=== PATIENT | female | born 2000 | race Caucasian/White ===

== ENCOUNTER 2020-09-06 12:48 | Emergency (ER) | payer MEDICAID, SELFPAY ==
[2020-09-06 13:09] VITALS: BP 125/80; PULSE 99; RESP 18; TEMP 36.7; O2SAT 97
--- NOTE | 2020-09-06 13:55 | ED.URI ---
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 Patient states that she has been taking some allergy medication but her symptoms haven't resolved. 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 MD elicited complaint: cough, sore throat, rhinorrhea, nasal congestion and other (headache) Pertinent past history: seasonal allergies Onset (ago): day(s) (4) Consistency: constant Severity: mild Pain scale (0-10): 3 Description of mucous: clear Able to tolerate fluids by mouth: Yes Exacerbating factors: swallowing Relieving factors: nothing Associated symptoms: headache, rhinorrhea, nasal congestion, sore throat and cough Treatments prior to arrival: other (allergy medication) Related Data Allergies Allergy/AdvReac Type Severity Reaction Status Date / Time No Known Allergies Allergy Unverified 09/26/18 17:44 Review of Systems Review of Systems: Narrative: CONSTITUTIONAL: Denies fever, chills, or sweats. EYES: Denies visual changes, redness, or discharge. ENT: Positive rhinorrhea, congestion, sore throat, no otalgia. CARDIOVASCULAR: Denies chest pain, palpitations, or edema. RESPIRATORY: Positive cough no dyspnea. GASTROINTESTINAL: Denies abdominal pain, nausea, vomiting, or diarrhea. GENITOURINARY: Denies dysuria or hematuria. SKIN: Denies rash or itching. MUSCULOSKELETAL: Denies back pain, joint pain, or myalgia. NEUROLOGIC: Positive frontal headache, no numbness, or weakness. PSYCHIATRIC: Positive history of anxiety or depression. All systems reviewed & are unremarkable except as noted in HPI and below PMFSH Past Medical History Medical History (Updated 09/09/20 @ 09:59 by Mignon Driver NP) Anemia Anxiety and depression Surgical History Surgical History (Updated 09/09/20 @ 09:51 by Mignon Driver NP) No history of previous surgery Family History Family History (Updated 09/09/20 @ 09:51 by Mignon Driver NP) Other No significant family history Social History Social History (Updated 09/09/20 @ 09:52 by Mignon Driver NP) Smoking status: Never smoker Alcohol intake: current Alcohol use details: social Substance use: never Living arrangements: with family Gender identity (if verbalized by the patient): Female Comments At time of signature, agree with nursing past medical, surgical, social and family history. There is no relevant family history pertinent to the presenting complaint Exam Narrative: Exam Narrative: GENERAL: Well-appearing, well-nourished, and in no acute distress. HEAD: Normocephalic, atraumatic. EYES: PERRLA and EOMI. ENT: Nares mildly red, clear rhinorrhea no epistaxis. Mucous membranes moist. TM's normal with good light reflex, throat red with no lesions or exudates no tonsil enlargement, post nasal drainage noted. NECK: Supple. no lymphadenopathy CHEST: Clear to auscultation. No respiratory distress.cough non productive, SAO2 97% on room air HEART: Regular rate and rhythm. No murmur heard. Normal peripheral pulses. ABDOMEN: Soft, nontender, nondistended, normal active bowel sounds. EXTREMITIES: Normal range of motion. No edema. SKIN: Warm, dry, no rash. NEURO: No focal deficits. Alert and oriented x3. Course Vital Signs Vital signs: Vital Signs Temperature 36.7 C 09/06/20 13:09 Pulse Rate 99 09/06/20 13:09 Respiratory Rate 18 09/06/20 13:09 Blood Pressure 125/80
== END 2020-09-06 14:16 | disposition home or self-care (01) ==
PROVIDERS: Emergency Provider Registered Nurse; PCP Nurse Practitioner Family
DX: J06.9 Acute upper respiratory infection, unspecified (principal); Z20.822 Contact with and (suspected) exposure to COVID-19
CPT/HCPCS: 87081; 87426; 87804; 87880; 99213; C9803; G0463

== ENCOUNTER 2020-09-19 14:04 | Outpatient (CLI) | payer MEDICAID, SELFPAY | END 2020-09-19 14:05 | disposition home or self-care (01) | LOC: ANHCOVIDVC 14:04 | PROVIDERS: PCP Nurse Practitioner Family | DX: Z23 Encounter for immunization (principal) | CPT/HCPCS: 0001A; 91300 ==

== ENCOUNTER 2020-09-27 15:08 | Emergency (ER) | payer MEDICAID, SELFPAY ==
[2020-09-27 15:19] VITALS: BP 121/83; PULSE 99; RESP 16; TEMP 36.7; O2SAT 99
--- NOTE | 2020-09-27 15:45 | ED.URI ---
HPI - URI/Sore Throat General Chief Complaint: Upper Respiratory Infection Stated Complaint: Cough,sore Throat,Fever Time Seen by Provider: 09/27/20 15:39 Source: patient and RN notes reviewed Mode of arrival: ambulatory Limitations: no limitations History of Present Illness HPI Narrative: Patient presents today with a 4-day history of congestion, sore throat, postnasal drip, cough, headache. She also reports a fever yesterday up to 101. Denies nausea, vomiting, diarrhea, loss of taste or smell. She currently rates her pain 2/10 and has been taking Benadryl without relief. History of some mild seasonal allergies. She has had her first dose of the COVID-19 vaccine on September 19. 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 MD elicited complaint: cough, sore throat and nasal congestion Related Data Home Medications Medication Instructions Recorded Confirmed Nuva Ring 09/27/20 ferrous sulfate mg PO 09/27/20 fluticasone propionate INTRANASAL 09/27/20 sertraline mg 09/27/20 Allergies Allergy/AdvReac Type Severity Reaction Status Date / Time No Known Allergies Allergy Unverified 09/26/18 17:44 Review of Systems Review of Systems: Narrative: CONSTITUTIONAL: Denies body aches, fever, chills, or sweats. EYES: Denies visual changes, redness, or discharge. ENT: Denies rhinorrhea, or otalgia.+ Congestion, sore throat, postnasal drip CARDIOVASCULAR: Denies chest pain, palpitations, or edema. RESPIRATORY: Denies dyspnea. + Cough GASTROINTESTINAL: Denies abdominal pain, nausea, vomiting, or diarrhea. GENITOURINARY: Denies dysuria or hematuria. SKIN: Denies rash, itching, or wounds. MUSCULOSKELETAL: Denies back pain, joint pain, or myalgia. NEUROLOGIC: Denies numbness, tingling, or weakness. + Headache PSYCH: Denies depression or anxiety. [facility] Past Medical History Medical History Anemia Anxiety and depression Surgical History Surgical History No history of previous surgery Family History Family History Other No significant family history Social History Social History Smoking status: Never smoker Alcohol intake: current Substance use: never Gender identity (if verbalized by the patient): Female Comments At time of signature, I have reviewed and agree with nursing past medical, surgical, social and family history unless otherwise noted. Please see nursing chart for further information. There is no relevant family history pertinent to the presenting complaint Exam Narrative: Exam Narrative: GENERAL: Well-appearing, well-nourished, and in no acute distress. HEAD: Normocephalic, atraumatic. EYES: EOMI. No redness or drainage. Conjunctivae normal. ENT: Mucous membranes pink and moist. Nares clear. No rhinorrhea. TMs normal bilaterally. Throat normal. Uvula midline. NECK: Normal AROM. Supple. No lymphadenopathy. CHEST: No respiratory distress. Clear to auscultation. HEART: Regular rate and rhythm. No murmur appreciated. Normal peripheral pulses. EXTREMITIES: Normal range of motion. No edema. SKIN: Warm, dry, no rash. Capillary refill normal. Normal skin turgor. NEURO: No focal deficits. Alert and oriented x3. Gait steady. PSYCH: Normal affect. No signs of depression or anxiety. Course Vital Signs Vital signs: Vital Signs Temperature 98.1 F 09/27/20 15:19 Pulse Rate 99 09/27/20 15:19 Respiratory Rate 16 09/27/20 15:19 Blood Pressure 121/83 09/27/20 15:19 Pulse Oximetry 99 09/27/20 15:19 Temperature 98.1 F 09/27/20 15:19 Pulse Rate 99 09/27/20 15:19 Respiratory Rate 16 09/27/20 15:19 Blood Pressure 121/83 09/27/20 15:19 Pulse Oximetry 99 09/27/20 15:19 Reviewed. Pt has been instructed to follow up with he
== END 2020-09-27 15:52 | disposition home or self-care (01) ==
PROVIDERS: Emergency Provider Nurse Practitioner; PCP Nurse Practitioner Family
DX: J06.9 Acute upper respiratory infection, unspecified (principal); Z20.822 Contact with and (suspected) exposure to COVID-19; F41.9 Anxiety disorder, unspecified; F32.9 Major depressive disorder, single episode, unspecified; D64.9 Anemia, unspecified
CPT/HCPCS: 87081; 87426; 87880; 99213; C9803; G0463

== ENCOUNTER 2020-10-10 14:02 | Outpatient (CLI) | payer MEDICAID, SELFPAY | END 2020-10-10 14:03 | disposition home or self-care (01) | LOC: ANHCOVIDVC 14:02 | PROVIDERS: PCP Nurse Practitioner Family | DX: Z23 Encounter for immunization (principal) | CPT/HCPCS: 0002A; 91300 ==

== ENCOUNTER 2021-01-10 17:13 | Emergency (ER) | payer OTHER, MEDICAID, SELFPAY ==
[2021-01-10 17:25] VITALS: BP 104/71; PULSE 91; RESP 16; TEMP 36.9; O2SAT 99
--- NOTE | 2021-01-10 18:05 | ED.URI ---
HPI - URI/Sore Throat General Chief Complaint: Upper Respiratory Infection Stated Complaint: sore throat/conggestion Time Seen by Provider: 01/10/21 17:39 Source: patient and RN notes reviewed Mode of arrival: ambulatory Limitations: no limitations History of Present Illness HPI Narrative: Patient presents today with a 3-day history of sore throat, nasal congestion, fever up to 100.1, headache, nausea and vomiting. Patient last vomited at 730 this morning. She vomited twice yesterday. Denies cough, diarrhea. Reports she was exposed to COVID-19. Reports she took Tylenol with mild relief. MD elicited complaint: sore throat and nasal congestion Related Data Home Medications Medication Instructions Recorded Confirmed Nuva Ring 09/27/20 ferrous sulfate mg PO 09/27/20 fluticasone propionate INTRANASAL 09/27/20 sertraline mg 09/27/20 hydroxyzine HCl 01/10/21 triamcinolone acetonide applic TOPICAL 01/10/21 Allergies Allergy/AdvReac Type Severity Reaction Status Date / Time No Known Allergies Allergy Unverified 09/26/18 17:44 Review of Systems Review of Systems: CONSTITUTIONAL: Denies body aches, chills, or sweats.+ Fever EYES: Denies visual changes, redness, or discharge. ENT: Denies rhinorrhea, or otalgia.+ Sore throat, congestion CARDIOVASCULAR: Denies chest pain, palpitations, or edema. RESPIRATORY: Denies cough or dyspnea. GASTROINTESTINAL: Denies abdominal pain, diarrhea.+ Nausea and vomiting GENITOURINARY: Denies dysuria or hematuria. SKIN: Denies rash, itching, or wounds. MUSCULOSKELETAL: Denies back pain, joint pain, or myalgia. NEUROLOGIC: Denies numbness, tingling, or weakness.+ Headache PSYCH: Denies depression or anxiety. [facility] Past Medical History Medical History Anemia Anxiety and depression Surgical History Surgical History No history of previous surgery Family History Family History Other No significant family history Social History Social History Smoking status: Never smoker Alcohol intake: current Alcohol use details: social Substance use: never Gender identity (if verbalized by the patient): Female Comments At time of signature, I have reviewed and agree with nursing past medical, surgical, social and family history unless otherwise noted. Please see nursing chart for further information. There is no relevant family history pertinent to the presenting complaint Exam Narrative: GENERAL: Well-appearing, well-nourished, and in no acute distress. HEAD: Normocephalic, atraumatic. EYES: EOMI. No redness or drainage. Conjunctivae normal. ENT: Mucous membranes pink and moist. Nares clear. No rhinorrhea. TMs normal bilaterally. Throat normal. Uvula midline. NECK: Normal AROM. Supple. No lymphadenopathy. CHEST: No respiratory distress. Clear to auscultation. HEART: Regular rate and rhythm. No murmur appreciated. Normal peripheral pulses. EXTREMITIES: Normal range of motion. No edema. SKIN: Warm, dry, no rash. Capillary refill normal. Normal skin turgor. NEURO: No focal deficits. Alert and oriented x3. Gait steady. PSYCH: Normal affect. No signs of depression or anxiety. Course Course Emergency Course: Declines prescription for antiemetic Vital Signs Vital signs: Vital Signs Temperature 98.4 F 01/10/21 17:25 Pulse Rate 91 01/10/21 17:25 Respiratory Rate 16 01/10/21 17:25 Blood Pressure 104/71 01/10/21 17:25 Pulse Oximetry 99 01/10/21 17:25 Temperature 98.4 F 01/10/21 17:25 Pulse Rate 91 01/10/21 17:25 Respiratory Rate 16 01/10/21 17:25 Blood Pressure 104/71 01/10/21 17:25 Pulse Oximetry 99 01/10/21 17:25 Reviewed MDM - URI/Sore Throat Differential Diagnosis Differenti
== END 2021-01-10 18:10 | disposition home or self-care (01) ==
PROVIDERS: Emergency Provider Nurse Practitioner; PCP Nurse Practitioner Family
DX: B34.9 Viral infection, unspecified (principal); Z20.822 Contact with and (suspected) exposure to COVID-19; D64.9 Anemia, unspecified; F41.9 Anxiety disorder, unspecified; F32.9 Major depressive disorder, single episode, unspecified
CPT/HCPCS: 87081; 87426; 87880; 99213; C9803; G0463

== ENCOUNTER 2021-03-28 15:40 | Emergency (ER) | payer OTHER, MEDICAID, SELFPAY ==
[2021-03-28 16:00] VITALS: BP 109/67; PULSE 98; RESP 18; TEMP 37.1; O2SAT 100
--- NOTE | 2021-03-28 16:52 | ED.GENADULT ---
HPI - General Adult General Chief complaint: Upper Respiratory Infection Stated complaint: Sore Throat,Cough Time Seen by Provider: 03/28/21 16:00 Source: patient Mode of arrival: ambulatory Limitations: no limitations History of Present Illness HPI narrative: 20 y/o female. PMHx Seasonal Allergies, ADDISON. Presents to [facility] today with acute complaints of nasal congestion, intermittent productive cough, and sore throat for the past > 1 week. Pt reports subjective fevers at home. No MACKEY, focal weakness. No chest pain, wheezing, palpitations, dyspnea. No abdominal pain, N/V. She is a non-smoker. She denies known ill contacts. Patient is without additional acute c/o illness upon PE. Related Data Home Medications Medication Instructions Recorded Confirmed Nuva Ring 09/27/20 ferrous sulfate mg PO 09/27/20 sertraline mg 09/27/20 hydroxyzine HCl 01/10/21 Allergies Allergy/AdvReac Type Severity Reaction Status Date / Time No Known Allergies Allergy Unverified 03/28/21 17:06 Review of Systems Review of Systems: CONSTITUTIONAL: Positive fever. No chills, sweats. EYES: Denies visual changes, redness, discharge. ENT: Positive rhinorrhea, congestion, sore throat. No otalgia. CARDIOVASCULAR: Denies chest pain, palpitations, edema. RESPIRATORY: Denies dyspnea, wheezing. Positive cough GASTROINTESTINAL: Denies abdominal pain, nausea, vomiting, diarrhea. GENITOURINARY: Denies dysuria, hematuria, abnormal discharge SKIN: Denies rash or itching. MUSCULOSKELETAL: Denies acute back pain, joint pain, or myalgia. NEUROLOGIC: Denies numbness, or focal weakness. PSYCHIATRIC: Denies anxiety or depression. All systems reviewed & are unremarkable except as noted in HPI and below PMFSH Past Medical History Medical History Anemia Anxiety and depression Surgical History Surgical History No history of previous surgery Family History Family History Other No significant family history Social History Social History Smoking status: Never smoker Alcohol intake: current Alcohol use details: social Substance use: never Gender identity (if verbalized by the patient): Female Exam Narrative: GENERAL: This is a well-nourished, well-developed adult, in no apparent distress. HEAD: normocephalic, atraumatic. EYES: PERRL. Sclera clear/white. EARS: External ears normal, auditory canals clear and without drainage, TMs normal. NOSE: External nose normal. Positive Rhinorrhea, congestion. No obstruction, nares patent. THROAT: Mucous membranes moist, posterior pharynx is erythematous, without exudative changes. NECK: Neck supple, non-tender without lymphadenopathy, masses or thyromegaly. CARDIOVASCULAR: Regular rate and rhythm without murmurs, gallops, or rubs. RESPIRATORY: Clear to auscultation. Breath sounds equal bilaterally. No wheezes, rales, or rhonchi. GASTROINTESTINAL: Abdomen soft, non-tender, nondistended. Bowel sounds are active. No guarding. SKIN: warm, intact with no suspicious lesions or rash, good texture and turgor. NEURO: Alert, active, and age appropriate. No focal neurologic deficits. Course Vital Signs Vital signs: Vital Signs Temperature 37.1 C 03/28/21 16:00 Pulse Rate 98 03/28/21 16:00 Respiratory Rate 18 03/28/21 16:00 Blood Pressure 109/67 03/28/21 16:00 Pulse Oximetry 100 03/28/21 16:00 Temperature 37.1 C 03/28/21 16:00 Pulse Rate 98 03/28/21 16:00 Respiratory Rate 18 03/28/21 16:00 Blood Pressure 109/67 03/28/21 16:00 Pulse Oximetry 100 03/28/21 16:00 Medical Decision Making MDM Narrative Medical decision making narrative: -Rapid Covid & Influenza testing is negative. -Suspect Pharyngitis, U
== END 2021-03-28 17:22 | disposition home or self-care (01) ==
PROVIDERS: Emergency Provider Nurse Practitioner Adult Health; PCP Nurse Practitioner Family
DX: J06.9 Acute upper respiratory infection, unspecified (principal); J02.9 Acute pharyngitis, unspecified; Z20.822 Contact with and (suspected) exposure to COVID-19; D64.9 Anemia, unspecified; F41.9 Anxiety disorder, unspecified; F32.9 Major depressive disorder, single episode, unspecified
CPT/HCPCS: 87081; 87426; 87880; 99213; C9803; G0463

== ENCOUNTER 2021-10-27 09:15 | Emergency (ER) | payer OTHER, MEDICAID, SELFPAY ==
--- NOTE | ~2021-10-27 | XR_ITS ---
EXAMINATION: XR chest 1V portable Exam Date/Time: 10/27/2021 15:10 CDT HISTORY: cough Comparison: 09/13/2019. RESULT: Lines, tubes, and devices: None. Lungs and pleura: Clear. Cardiomediastinal silhouette: Stable cardiomediastinal silhouette. Other: No acute osseous or upper abdominal finding. IMPRESSION: No acute cardiopulmonary process. Reviewed, dictated and finalized at location K.
--- NOTE | ~2021-10-27 | US_ITS ---
EXAMINATION: US OB <= 14 weeks fetus DATE: 10/27/2021 11:36 INDICATION: Bodyaches and pain TECHNIQUE: Real-time transabdominal and transvaginal obstetric ultrasound. FINDINGS: No prior studies for comparison. The uterus measures 7.6 x 5 x 4.2 cm. There is an intrauterine gestational sac containing a yolk sac. No pole or cardiac activity are seen. Gestational sac measures 0.82 cm corresponding to 5 week 3 day gestation. There is a 2.8 cm corpus luteal cyst of the right ovary. Small amount of free fluid in the pelvic cul-de-sac. Left ovary is unremarkable. IMPRESSION: 1. Intrauterine gestational sac containing a yolk sac corresponding to a 5 week 3 day gestation (TORIE 06/26/2022). No pole or heart motions are detected, likely due to early gestational age. R ecommend follow-up with serial quantitative beta-hCG levels and ultrasound as clinically indicated. Reviewed, dictated and finalized at location A. IMPRESSION: 1. Intrauterine gestational sac containing a yolk sac corresponding to a 5 week 3 day gestation (TORIE 06/26/2022). No pole or heart motions are dete cted, likely due to early gestational age. Recommend follow-up with serial landon titative beta-hCG levels and ultrasound as clinically indicated.
[2021-10-27 09:28] VITALS: BP 126/84; PULSE 132; RESP 18; TEMP 39; O2SAT 100
[2021-10-27 09:39] LABS: Basophils Percent Auto 0.2 % (0.2-1.2); Eosinophils Percent Auto 0.2 % (0-4.4); Hematocrit 39.5 % (37.0-47.0); Hemoglobin 12.8 g/dL (12.0-15.0); Immature Granulocyte Absolute 0.02 K/mm3 (0.00-0.031); Immature Granulocyte Percent A 0.3 % (0-0.5); Lymphocytes Absolute Auto 0.49 K/mm3 (0.9-3.2); Lymphocytes Percent Auto 7.5 % (18.3-44.2); Mean Corpuscular HGB Conc 32.4 g/dl (32-36); Mean Corpuscular Hemoglobin 30.2 pg (26-34); Mean Corpuscular Volume 93.2 fl (80-100); Mean Platelet Volume 9.5 fl (7.4-10.4); Monocytes Absolute Auto 0.7 K/mm3 (0.1-0.6); Neutrophils Absolute Auto 5.4 K/mm3 (1.3-6.7); Neutrophils Percent Auto 81.8 % (45.5-73.1); Platelet Count Result 214 k/mm3 (150-375); Red Blood Count 4.24 M/mm3 (4.2-5.4); Red Cell Distribution Width 13.5 % (11.5-14.5); White Blood Count 6.6 K/mm3 (4.5-10.0)
[2021-10-27 09:46] LABS: Appearance Urine Clear (Clear); Bilirubin Urine Negative (Negative); Blood Urine Negative (Negative); Glucose Urine UA Negative (Negative); Ketones Urine Negative (Negative); Leukocyte Esterase Ur Negative LEU/UL (Negative); Nitrate Urine Negative (Negative); Protein Urine Negative (Negative); Specific Grav Ur 1.025 (1.001-1.035); Urobilinogen Urine 0.2 mg/dL (<2.0); pH Urine 7.5 (5.0-9.0)
[2021-10-27 09:50] LABS: Add Urine Microscopic? NO; Color Urine Light Yellow (Yellow)
[2021-10-27 09:51] LABS: Alanine Aminotransferase 17 U/L (6-35); Albumin Level 4.6 g/dL (3.5-5.1); Alkaline Phosphatase 67 U/L (38-126); Anion Gap 10 mmol/L (8-16); Aspartate Amino Transferase 27 U/L (14-36); Bilirubin,Total 0.4 mg/dL (0.2-1.3); Blood Urea Nitrogen 8 mg/dL (7-17); Calcium 8.9 mg/dL (8.4-10.2); Carbon Dioxide 24 mmol/L (22-30); Chloride 100 mmol/L (98-107); Estimated CRCL calculation 89 ml/min; Estimated Glomerular Filt Rate > 60; Glucose 129 mg/dL (65-110); Lipase 52 U/L (23-300); Potassium 3.4 mmol/L (3.4-5.0); Sodium 134 mmol/L (137-145)
[2021-10-27] MEDS: ONDANSETRON INJ 4 MG/2 ML VIAL IV PUSH (10:09)
[2021-10-27] MEDS: SODIUM CHLORIDE 0.9% IV 1,000 ML 999 ML IV CONT ×3 (10:09→13:00)
[2021-10-27 10:24] VITALS: BP 114/71; PULSE 123; RESP 19; O2SAT 100
[2021-10-27 10:40] LABS: Lactic Acid Reflex 1.2 mmol/L (0.7-2.0)
[2021-10-27 11:37] LABS: Influenza A QL RT-PCR Positive (Negative); Influenza B QL RT-PCR Negative (Negative); SARS-CoV-2 RNA PCR Negative
[2021-10-27 12:34] VITALS: BP 114/71; PULSE 119; RESP 19; TEMP 37.1; O2SAT 96
--- NOTE | 2021-10-27 12:47 | ED.GENADULT ---
HPI - General Adult General Chief complaint: Nausea/Vomiting/Diarrhea Stated complaint: nausea Time Seen by Provider: 10/27/21 09:25 Source: RN notes reviewed History of Present Illness HPI narrative: Patient presents emergency department from home for nausea and vomiting. Patient states symptoms began 2 days ago with numerous episodes of nausea vomiting. States is also been associated with body aches, chills cough and congestion. Patient states that she is not taking medication at home for the symptoms she states that she did recently find out she is and is approximately 5 weeks but is not seen [employer]. She does follow with Dr. Galeano denies any abdominal pain or vaginal bleeding Related Data Home Medications Medication Instructions Recorded Confirmed prenat.vits,jimena,[id number] 1 tablet PO DAILY 10/27/21 [ Vitamin] Allergies Allergy/AdvReac Type Severity Reaction Status Date / Time No Known Allergies Allergy Verified 10/27/21 09:31 Review of Systems Review of Systems: Gen.: Denies fevers or chills ENT: Reports congestion Respiratory: Denies shortness of breath or cough CV: Denies chest pain or palpitations GI: Denies abdominal pain reports nausea vomiting reports Musculoskeletal: Denies back pain or muscle pain Neuro: Denies numbness, tingling, weakness or focal weakness Skin: Denies rash Except as documented, all other systems reviewed and negative [facility] Past Medical History Medical History Anemia Anxiety and depression Surgical History Surgical History No history of previous surgery Family History Family History Other No significant family history Social History Social History Smoking status: Never smoker Alcohol intake: current Alcohol use details: social Substance use: never Gender identity (if verbalized by the patient): Female Exam Narrative: APPEARANCE: No acute distress, nontoxic, resting in bed EYES: EOMI HEENT: Normocephalic, atraumatic, oral mucosa dry RESPIRATORY: No respiratory distress Clear to auscultation bilaterally with no rhonchi wheezing or rales. CARDIOVASCULAR: Tachycardic and regular without murmurs rubs or gallops. ABDOMINAL: Soft, nontender, nondistended, no rebound or guarding MUSCULOSKELETAl: Moves all extremities. No clubbing, cyanosis or edema. NEURO: Awake and alert. Following commands, speech normal, no focal deficits SKIN:: Warm, dry. No rashes lesions or abrasions PSYCHIATRIC: Normal affect/mood, Course Course Emergency Course: Patient states she is feeling better is able to eat and drink in the emergency department with no emesis Discussed Dr. Galeano presentation work-up agrees with plan for discharge recommends the patient started on Tamiflu Patient's been up walking the restroom several times no difficulty no further emesis Discussed with patient results of workup and diagnosis. Discussed need for follow-up with primary care, proper use of medication, and reasons to return to the emergency department. Patient understands and agrees to current treatment plan Vital Signs Vital signs: Vital Signs Temperature 102.2 F H 10/27/21 09:28 Pulse Rate 132 H 10/27/21 09:28 Respiratory Rate 18 10/27/21 09:28 Blood Pressure 126/84 10/27/21 09:28 Pulse Oximetry 100 10/27/21 09:28 Temperature 98.7 F 10/27/21 12:34 Pulse Rate 117 H 10/27/21 13:35 Respiratory Rate 20 10/27/21 13:35 Blood Pressure 107/70 10/27/21 13:35 Pulse Oximetry 99 10/27/21 13:35 Medical Decision Making Vital Signs Vital Signs: Vital Signs Temperature 102.2 F H 10/27/21 09:28 Pulse Rate 132 H 10/27/21 09:28 Respiratory Rate 18 10/27/21 09:28 Blood Pressure 126/84 0
[2021-10-27] MEDS: OSELTAMIVIR PHOSPHATE 75 MG CAPSULE PO (13:27)
[2021-10-27 13:35] VITALS: BP 107/70; PULSE 117; RESP 20; O2SAT 99
--- NOTE | 2021-10-27 14:56 | ECG_ITS ---
Measurements Intervals [place] Rate: 112 P: 53 [place]: 148 QRS: 75 QRSD: 77 T: 38 QT: 299 QTc: 409 Interpretive Statements SINUS TACHYCARDIA BORDERLINE T WAVE ABNORMALITY- ANTERIOR LEADS ABNORMAL ECG Electronically Signed On 10-27-2021 15:21:38 CDT by Pranay Rust D.O.
[2021-10-27 16:10] VITALS: BP 111/76; PULSE 102; RESP 19; O2SAT 98
== END 2021-10-27 16:11 | disposition home or self-care (01) ==
PROVIDERS: Emergency Provider Emergency Medicine; PCP Nurse Practitioner Family
DX: O99.511 Diseases of the respiratory system complicating pregnancy, first trimester (principal); J10.1 Influenza due to other identified influenza virus with other respiratory manifestations; Z20.822 Contact with and (suspected) exposure to COVID-19; Z86.2 Personal history of diseases of the blood and blood-forming organs and certain disorders involving the immune mechanism; Z3A.01 Less than 8 weeks gestation of pregnancy
CPT/HCPCS: 36415; 71045; 76801; 80053; 81003; 83605; 83690; 84702; 85025; 87040; 87081; 87502; 87880; 93005; 96361; 96374; 96375; 99284; A9270; C9803; J0131; J2405; J7030; U0003; U0005

== ENCOUNTER → 2021-11-24 14:38 | Outpatient (CLI) | payer OTHER, MEDICAID, SELFPAY ==
--- NOTE | ~2021-11-24 | US_ITS ---
EXAMINATION: US OB <= 14 weeks fetus DATE: 11/24/2021 14:59 INDICATION: Uncertain dating of during first trimester TECHNIQUE: Real-time pelvic ultrasound utilizing both a transvaginal and transabdominal probe was pe rformed. The interpreting radiologist was not present for the study. COMPARISON: None. FINDINGS: The uterus measures 9.5 x 5.9 x 7.3 cm. There is an intrauterine gestational sac. A yolk sac and fet al pole are identified. The crown rump length measures 2.5 cm, which correlates with an estimated ges tational age of 9 weeks and 1 days. heart motion is identified measuring 168 beats per minute ( bpm) by M-mode Doppler. The bilateral ovaries are not visualized. There is no free fluid in the pelvis. IMPRESSION: 1. Single living fetus with heart rate of 168 bpm. 2. Gestational age by ultrasound of 9 weeks 1 day(s) +/- 6 day(s) with ultrasound estimated date of delivery (TORIE) of 06/28/2022. Reviewed, dictated and finalized at location B. IMPRESSION: 1. Single living fetus with heart rate of 168 bpm. 2. Gestational age by ultrasound of 9 weeks 1 day(s) +/- 6 day(s) with ultraso und estimated date of delivery (TORIE) of 06/28/2022.
== END ==
PROVIDERS: PCP Obstetrics & Gynecology Gynecology; Visit Provider Obstetrics & Gynecology Gynecology
DX: Z36.87 Encounter for antenatal screening for uncertain dates (principal); Z3A.09 9 weeks gestation of pregnancy
CPT/HCPCS: 76801

== ENCOUNTER 2022-04-09 09:29 | Outpatient (RCR) | payer OTHER, MEDICAID, SELFPAY ==
[2022-04-10] MEDS: RHO(D) IMMUNE GLOBULIN 300 MCG/2 ML SYRINGE IM (07:31)
== END 2022-07-08 23:59 | disposition home or self-care (01) ==
LOC: ANHLAB 09:29
PROVIDERS: PCP Nurse Practitioner Family; Visit Provider Obstetrics & Gynecology
DX: Z29.13 Encounter for prophylactic Rho(D) immune globulin (principal); O36.0190 Maternal care for anti-D [Rh] antibodies, unspecified trimester, not applicable or unspecified; Z3A.00 Weeks of gestation of pregnancy not specified
CPT/HCPCS: 36415; 85461; 86850; 86900; 86901; 90384; 96372; J2790

== ENCOUNTER 2022-06-09 12:04 | Outpatient (RCR) | payer OTHER, MEDICAID, SELFPAY ==
[2022-06-09 12:36] VITALS: BP 119/76
== END 2022-07-04 07:40 | disposition home or self-care (01) ==
LOC: ANHOBOP 12:04
PROVIDERS: PCP Nurse Practitioner Family; Visit Provider Obstetrics & Gynecology
DX: O41.03X0 Oligohydramnios, third trimester, not applicable or unspecified (principal); Z3A.37 37 weeks gestation of pregnancy
CPT/HCPCS: 59025

== ENCOUNTER 2022-06-10 19:57 | Outpatient (CLI) | payer OTHER, MEDICAID, SELFPAY | END 2022-06-10 21:20 | disposition home or self-care (01) | LOC: ANHOBOP 21:18 → ANHLDR 21:19 | PROVIDERS: PCP Nurse Practitioner Family; Visit Provider Obstetrics & Gynecology | DX: O26.859 Spotting complicating pregnancy, unspecified trimester (principal); Z3A.00 Weeks of gestation of pregnancy not specified | CPT/HCPCS: 59025; 84112; 99199 ==

== ENCOUNTER 2022-06-15 17:00 | Inpatient (IN) | payer OTHER, MEDICAID, SELFPAY ==
[2022-06-15] VITALS (22 sets, daily range): BP systolic 102–122; BP diastolic 57–83; PULSE 91–116; RESP 16; TEMP 37.1–37.4; BMI 30.7
--- NOTE | 2022-06-15 17:27 | LDADM ---
This patient, Debi Addison, was admitted to Labor/Delivery/Recovery 108 on 06/15/22 at 17:00. Plans for labor, pain management and were discussed with patient. Patient/family oriented to hospital policies and general routines including ID bracelet, bed and alarms, visiting hours, pain management, procedures, bathroom and other care routines, personal items, smoking policy, room service/diet and guest tray routines, security routines, and visiting hours. Patient/Family are encouraged to report perceived risks to care and to ask questions if they do not understand what they are told or what they should do. See OBIX for further documentation.
[2022-06-15] MEDS: DINOPROSTONE 10 MG VAG INSERT VAGINAL (17:43)
[2022-06-15 17:45] LABS: Basophils Percent Auto 0.2 % (0.2-1.2); Eosinophils Absolute Auto 0.1 K/mm3 (0-0.3); Eosinophils Percent Auto 0.5 % (0-4.4); Hematocrit 37.1 % (37.0-47.0); Hemoglobin 12.2 g/dL (12.0-15.0); Lymphocytes Absolute Auto 1.87 K/mm3 (0.9-3.2); Lymphocytes Percent Auto 18.3 % (18.3-44.2); Mean Corpuscular HGB Conc 32.9 g/dl (32-36); Mean Corpuscular Hemoglobin 31.4 pg (26-34); Mean Corpuscular Volume 95.6 fl (80-100); Mean Platelet Volume 9.6 fl (7.4-10.4); Monocytes Absolute Auto 0.8 K/mm3 (0.1-0.6); Monocytes Percent Auto 7.6 % (2.6-8.5); Neutrophils Absolute Auto 7.4 K/mm3 (1.3-6.7); Neutrophils Percent Auto 72.4 % (45.5-73.1); Platelet Count Result 256 k/mm3 (150-375); Red Blood Count 3.88 M/mm3 (4.2-5.4); Red Cell Distribution Width 19.7 % (11.5-14.5); White Blood Count 10.2 K/mm3 (4.5-10.0)
[2022-06-15 17:57] LABS: Alanine Aminotransferase 20 U/L (6-35); Albumin Level 3.9 g/dL (3.5-5.1); Alkaline Phosphatase 174 U/L (38-126); Anion Gap 6 mmol/L (8-16); Aspartate Amino Transferase 23 U/L (14-36); Bilirubin,Total 0.3 mg/dL (0.2-1.3); Blood Urea Nitrogen 8 mg/dL (7-17); Calcium 9.1 mg/dL (8.4-10.2); Carbon Dioxide 25 mmol/L (22-30); Chloride 102 mmol/L (98-107); Estimated CRCL calculation 145 ml/min; Estimated Glomerular Filt Rate > 60; Glucose 79 mg/dL (65-110); Potassium 3.7 mmol/L (3.4-5.0); Sodium 133 mmol/L (137-145); Uric Acid 3.4 mg/dL (2.5-7.5)
[2022-06-16] VITALS (157 sets, daily range): BP systolic 78–133; BP diastolic 42–94; PULSE 81–137; RESP 18; TEMP 36.6–37.7; O2SAT 93–100
[2022-06-16] MEDS: LACTATED RINGERS 1,000 ML 125 ML IV CONT ×4 (01:13→14:40)
[2022-06-16] MEDS: fentaNYL CITRATE INJ (*CRX) 100 MCG/2 ML VIAL 50 MCG IV PUSH ×3 (02:55→06:38)
[2022-06-16] MEDS: OXYTOCIN 30 UNITS/NS 500 ML 30 UNITS/500 ML BAG 6 UNITS IV CONT (05:36)
--- NOTE | 2022-06-16 08:42 | PM.IMHP ---
H&P: HPI History of Present Illness Date/Time: 06/16/22 08:42 Chief Complaint: Here for induction of labor. Narrative: 21 y/o G1 at 38 2/7 weeks here for induction of labor. She has oligohydramnios. ROM has been ruled out. BP was elevated in office yesterday. Offered induction of labor. GBS neg. Cervidil overnight, has been withdrawn. Review of Systems Review of Systems: All systems reviewed & are unremarkable except as noted in HPI and below PMFSH Past Medical History Medical History Anemia Anxiety and depression Surgical History Surgical History No history of previous surgery Family History Family History Father High cholesterol Hypertension Diabetes mellitus Social History Social History Smoking status: Never smoker Alcohol intake: current Alcohol use details: social Substance use: never Lack of Transportation: No Lack of Food: Never True Current Housing: I Have Housing Concerned About Future Housing: No Difficulty Paying Gas/Electric Bills: No Difficulty Paying for Meds: No Currently Unemployed: No Education: Bachelor's Degree Difficulty w/ Childcare or Family Care: No Gender identity (if verbalized by the patient): Female Spiritual care concerns: No Meds Home Medications and Allergies Home Medications Medication Instructions Recorded Confirmed Type prenat.vits,jimena,avs-hrig-affxd 1 tablet PO DAILY 10/27/21 06/15/22 History famotidine 20 mg tablet (Pepcid) 20 mg PO DAILY 06/15/22 06/15/22 History ferrous sulfate 325 mg (65 mg 325 mg PO DAILY 06/15/22 06/15/22 History iron) tablet,delayed release Allergies Allergy/AdvReac Type Severity Reaction Status Date / Time No Known Allergies Allergy Verified 10/27/21 09:31 Vital Signs Vital Signs - 24 hr 06/15/22 17:21 06/15/22 17:30 06/15/22 17:45 Temperature Pulse Rate 105 H 103 H 104 H Respiratory Rate Blood Pressure 114/75 118/80 113/75 Pulse Oximetry 06/15/22 18:00 06/15/22 18:15 06/15/22 17:39 Temperature 37.4 C Pulse Rate 101 H 102 H Respiratory Rate Blood Pressure 102/60 119/75 Pulse Oximetry 06/15/22 18:30 06/15/22 18:45 06/15/22 19:00 Temperature 37.1 C Pulse Rate 98 105 H 99 Respiratory Rate Blood Pressure 105/59 L 113/75 110/83 Pulse Oximetry 06/15/22 19:15 06/15/22 19:30 06/15/22 19:45 Temperature Pulse Rate 91 100 101 H Respiratory Rate Blood Pressure 117/70 122/66 117/72 Pulse Oximetry 06/15/22 20:15 06/15/22 20:30 06/15/22 20:45 Temperature Pulse Rate 104 H 102 H 116 H Respiratory Rate Blood Pressure 113/74 119/72 102/69 Pulse Oximetry 06/15/22 21:00 06/15/22 21:15 06/15/22 21:45 Temperature Pulse Rate 102 H 100 103 H Respiratory Rate Blood Pressure 106/77 114/69 122/70 Pulse Oximetry 06/15/22 22:00 06/15/22 22:17 06/15/22 22:30 Temperature Pulse Rate 100 111 H 109 H Respiratory Rate Blood Pressure 116/65 111/57 L 113/63 Pulse Oximetry 06/15/22 23:00 06/16/22 03:00 06/16/22 05:37 Temperature 37.1 C 36.6 C Pulse Rate 96 99 Respiratory Rate 16 18 Blood Pressure 111/64 115/72 Pulse Oximetry 06/16/22 05:45 06/16/22 06:00 06/16/22 06:15 Temperature Pulse Rate 105 H 99 88 Respiratory Rate Blood Pressure 110/66 113/67 118/76 Pulse Oximetry 06/16/22 06:30 06/16/22 06:45 06/16/22 06:46 Temperature Pulse Rate 110 H 114 H Respiratory Rate Blood Pressure 123/75 120/68 Pulse Oximetry 96 06/16/22 06:48 06/16/22 06:51 06/16/22 06:54 Temperature Pulse Rate 111 H 106 H 106 H Respiratory Rate Blood Pressure 123/72 112/70 118/64 Pulse Oximetry 97 06/16/22 06:55 06/16/22 06:56 06/16/22 06:58 Temperature
[2022-06-16] MEDS: SODIUM CHLORIDE 0.9% IV 300 ML 600 ML I-UTERINE (09:37)
[2022-06-16 10:16] LABS: Rapid Plasma Reagin Non-Reactive (NonReactive)
--- NOTE | 2022-06-16 15:48 | P.PCNOB_ITS ---
OB - Delivery Note Procedure Delivery date: 06/16/22 Procedure: Induction of labor Events: Oligohydramnios Induction method: Per Cervidil Protocol Delivery augmentation: Rupture of Membranes and Pitocin Delivery monitor: External FHT, External Uterine and Internal Uterine Route of delivery: Episiotomy description: Midline Delivery repair: vicryl (3-0) Quantitative Blood Loss (ml): 80 Anesthesia type: Epidural Disposition: PACU Complications: Shoulder dystocia Narrative: 21 y/o G1 at 38 2/7 weeks gestation who presented to the hospital for induction of labor. Cervidil was placed overnight, then withdrawn the next morning. Oxytocin was administered intravenously. Amniotomy was performed with return of clear fluid. She received an epidural for pain control. Her labor progressed and her cervix dilated completely. She pushed with good effort. A midline episiotomy was made, and the infant's head delivered to the perineum. A loose nuchal cord was reduced. A shoulder dystocia was encountered. Fundal pressure and traction on the 's head were strictly avoided. McRobert's maneuver was employed. The posterior (left) shoulder was grasped and rotated in a clockwise fashion. The anterior (right) shoulder delivered easily and delivery of the body followed. The nose and mouth were bulb suctioned. After a delay, the cord was clamped and cut. The infant was handed off the field. Cord blood was collected. The placenta delivered spontaneously and was grossly normal in appearance. The usual 3 vessel cord was noted. The midline episiotomy was reapproximated using 3 0 Vicryl in the usual layered fashion. Excellent hemostasis resulted as did excellent reapproximation of the normal anatomy. Needle and instrument counts were correct. The patient was taken to recovery room in stable condition. The infant went to the nursery in stable condition. I was present and scrubbed for the entire delivery. [place] Baby Date of : 06/16/22 Time of : 15:28 Weeks of gestation at delivery: 38 Infant gender: Male Weight (pounds): 7 Weight (ounces): 8 presentation: vertex position: Right Occiput Anterior Placenta delivery description: Spontaneous and Normal Configuration Cord Vessel Description: 3 Vessels and Nuchal Cord score one minute: 8 score five minutes: 9
--- NOTE | 2022-06-16 15:53 | PM.OBDSVD ---
DS: Admitting Diagnosis Discharge Date 06/18/22 Admitting Diagnosis IUP at 38 2/7 weeks Oligohydramnios DS: Discharge Diagnosis Discharge Diagnosis (1) Oligohydramnios in third trimester: Code(s): O41.03X0 - Oligohydramnios, third trimester, not applicable or unspecified Status: Acute (2) (normal spontaneous vaginal delivery): Code(s): O80 - Encounter for full-term uncomplicated delivery Status: Acute OB - DS: Summary OB Procedures : None OB Procedures Intrapartum: Spontaneous Vag Delivery OB Procedures: : RHo (D) lg and Rubella lg Time Spent with Patient Time attestation: Total time spent providing and/or coordinating discharge services: DS: Data Data Completed and Pending Labs on day of discharge: Labs from last 24 hours 06/15/22 06/15/22 06/15/22 17:19 17:19 17:19 WBC RBC Hgb Hct MCV MCH MCHC RDW Plt Count MPV Immature Gran % (Auto) Neut % (Auto) Lymph % (Auto) Trigg % (Auto) Eos % (Auto) Baso % (Auto) Lymph # (Auto) Trigg # (Auto) Eos # (Auto) Baso # (Auto) Abs Immat Gran (auto) Absolute Neuts (auto) Absolute Nucleated RBC Nucleated RBC % Sodium 133 L Potassium 3.7 Chloride 102 Carbon Dioxide 25 Anion Gap 6 L BUN 8 Creatinine 0.50 L Estim Creat Clear Calc 145 Estimated GFR > 60 Glucose 79 Uric Acid 3.4 Calcium 9.1 Total Bilirubin 0.3 AST 23 ALT 20 Alkaline Phosphatase 174 H Total Protein 7.0 Albumin 3.9 RPR Non-reactive Blood Type A Negative Antibody Screen Positive Antibody Identification Inconclusive Antigen Identification Cancelled DHIRAJ, IgG Interpret Not Performed DHIRAJ, Poly Interpret Neg DHIRAJ, Complement Interp Not Performed 06/15/22 06/15/22 17:19 17:19 WBC 10.2 H RBC 3.88 L Hgb 12.2 Hct 37.1 MCV 95.6 MCH 31.4 MCHC 32.9 RDW 19.7 H Plt Count 256 MPV 9.6 Immature Gran % (Auto) 1.0 H Neut % (Auto) 72.4 Lymph % (Auto) 18.3 Trigg % (Auto) 7.6 Eos % (Auto) 0.5 Baso % (Auto) 0.2 Lymph # (Auto) 1.87 Trigg # (Auto) 0.8 H Eos # (Auto) 0.1 Baso # (Auto) 0.0 Abs Immat Gran (auto) 0.10 H Absolute Neuts (auto) 7.4 H Absolute Nucleated RBC 0.0 Nucleated RBC % 0.0 Sodium Potassium Chloride Carbon Dioxide Anion Gap BUN Creatinine Estim Creat Clear Calc Estimated GFR Glucose Uric Acid Cancelled Calcium Total Bilirubin AST ALT Alkaline Phosphatase Total Protein Albumin RPR Blood Type Antibody Screen Antibody Identification Antigen Identification DHIRAJ, IgG Interpret DHIRAJ, Poly Interpret DHIRAJ, Complement Interp Discharge Plan Discharge Attending physician on discharge: Gaudencio Davis Discharging Clinician: Gaudencio Davis Patient Disposition: Home, Self-Care Activity: pelvic rest Diet: regular Discharge Instructions: Call or return if temperature above 100.4? F, increased abdominal pain, increased vaginal bleeding or any new problems. Stand Alone Forms: General Discharge Information Follow-up/Referrals: Gaudencio Davis MD [Physician] - 6 Weeks Discharge Medications: New ibuprofen 600 mg tablet 600 mg PO Q6H PRN (Reason: cramps) Qty: 30 0RF Continued Vitamin Tablet 1 tablet PO DAILY famotidine [Pepcid] 20 mg Tablet 20 mg PO DAILY Discontinued ferrous sulfate 325 mg (65 mg iron) Tablet,Delayed Release (Dr/Ec) 325 mg PO DAILY Date of admission: 06/15/22 17:00 Primary Care Provider: Kamala,Amber Tsai Admitting Provider: Gaudencio Davis Attending physician on admission: Gaudencio Davis Condition: Stable
[2022-06-16] MEDS: OXYTOCIN 30 UNITS/NS 500 ML 30 UNITS/500 ML BAG 125 UNITS IV CONT (16:07)
[2022-06-16] MEDS: IBUPROFEN 600 MG TABLET PO (17:42)
[2022-06-16] MEDS: BENZOCAINE 20% AER SPR (*SP) 56 GM CAN 1 SPRAY TOPICAL (17:43)
[2022-06-16] MEDS: WITCH HAZEL 40 PADS 1 PAD TOPICAL (17:43)
[2022-06-16] MEDS: ACETAMINOPHEN 325 MG TABLET 650 MG PO (23:16)
[2022-06-17] VITALS (7 sets, daily range): BP systolic 95–121; BP diastolic 52–74; PULSE 96–116; RESP 16–20; TEMP 36.7–37.4; O2SAT 97–99
[2022-06-17 05:35] LABS: Hematocrit 34.5 % (37.0-47.0); Hemoglobin 11.1 g/dL (12.0-15.0)
--- NOTE | 2022-06-17 07:00 | PC.NURSE ---
Pt introductions made and plan of care discussed per post , pain management, breast feeding, daily care activities. PT received instructions per one to one discussion, mom baby care guide and demonstrations this shift. PT sole recipient of such instructions and no barriers to learning identified at this time. PT verbalized understanding of such care.
--- NOTE | 2022-06-17 08:53 | PM.OBPNVD ---
OB - PN: Subj Subjective Date/time seen: 06/17/22 08:53 Narrative: Pain OK. Wants circ for son. OB - PN: Obj Data Labs 06/17/22 04:19 06/15/22 17:19 Labs: Laboratory Results - last 24 hr 06/15/22 06/17/22 06/17/22 17:19 04:18 04:19 Hgb 11.1 L Hct 34.5 L RPR Non-reactive Blood Type A Negative Antibody Screen TNP Screen Negative Baby's Blood Type A pos Baby's DHIRAJ Negative Doses of RhIg Required 1 OB - PN A/P Plan Comments: A: PPD#1, doing well. P: Reviewed circ. Routine care. Exam Psych: Other: AVSS ABD soft, nontender, fundus firm EXT nontender
[2022-06-17] MEDS: IBUPROFEN 600 MG TABLET PO ×3 (09:00→21:50)
[2022-06-17] MEDS: ACETAMINOPHEN 325 MG TABLET 650 MG PO ×2 (09:54→18:33)
[2022-06-17] MEDS: LANOLIN (LANSINOH) 7.5 GM CREAM 1 APPLIC TOPICAL (09:56)
[2022-06-17] MEDS: FAMOTIDINE 20 MG TABLET PO (09:56)
[2022-06-17] MEDS: MULTIVIT/MIN/PREN/FOL AC/IRON TABLET 1 TAB PO (09:56)
[2022-06-17] MEDS: DOCUSATE SODIUM 100 MG CAPSULE PO ×2 (09:56→16:32)
--- NOTE | 2022-06-17 10:35 | PC.NURSE ---
[id number] Introductions were made, then consulted with patient to assess needs related to . Mother led the conversation with her?plans to feed?her infant and the?experience so far with the plan. Mother attempted to latch infant on her own at 0900 for 15 minutes without calling for assistance, then bottle fed 20mls. Infant had received 30mls early this morning due to mother was concerned that her infant crying meant he was hungry and she said latching was painful. Resources provided for inpatient using the call light and outpatient resources using the mom/baby guide. Reviewed adequate intake/output using the pie demonstration and offered assistance working with latching. Mother voiced understanding of information and will call if there is a request for assistance. Primary RN is present in the room.
--- NOTE | 2022-06-17 13:33 | PC.NURSE ---
[id number] Introductions were made, then consulted with patient to assess needs related to . Mother led the conversation with her?plans to feed?her infant and the?experience so far. Resources provided for inpatient (call light) and outpatient services with the office number on the feeding sheet and mom/baby guide. Mother voiced understanding of information, will call if there is a request for assistance and is receptive to practicing skin to skin and stimulating with massage touch. [id number] Purposefully rounded to see if her infant is stimulated awake for . Mother was encouraged to stimulate with massage touch, changing positioning and talking. Feeding cues were visualized and infant was gently placed in football positioning and optimally latched to the right breast. Mother works well with her with encouragement and education. Encouraged understanding of the benefits of skin to skin (demonstrating unwrapping and placing upright on her chest), stimulating with massage touch, changing positions to encourage wakefulness, how to watch for early feeding cues, responsive feeding, feeding on demand (aiming for 8-12 times in 24 hours, about every 2-3 hours), milk production, building/maintaining a milk supply, duration of feeding, signs of adequate intake/output and how to record on the feeding sheet. Reviewed positioning and ear, shoulder, hip alignment, supporting the breast to facilitate a deep latch, asymmetrical latch (off-center), leading with the chin with a big, open, wide gape and body close to mother. Education given to mother of how to visualize good rocking motion with appropriate suck/swallow ratios (2:1) and listen for drinking at the breast. Infant was able to maintain latch without discomfort to mother. Nipple care reviewed with optimal latch and good positioning. Reminding mother of comfort measures of healing with a warm and wet washcloth to rinse breast, then leave open to air-dry as needed. Reviewed good handwashing when or touching the breast/nipples to prevent infection. Resources used to facilitate learning were used with the tool, mom and baby guide. Mother voiced understanding of skin to skin, stimulating with massage touch, responsive feedings, hand expressed colostrum, talking to to encourage if it has been 2 -2.5 hours since the start of the last , to call if does not latch, or if there is discomfort with . Resources provided for inpatient/outpatient with office number on the feeding sheet and the mom/baby guide. Mother voiced understanding of information, demonstrated learning and will call if there is a request for assistance. Reported to the primary RN.
--- NOTE | 2022-06-17 13:57 | WPDANLDPN2 ---
Anes-Prog Note L&D Date/Time: 06/17/22 13:57 Neuro status: Neuro function grossly intact. Vital Signs: Last Vital Signs Temp 37.4 C 06/17/22 11:50 Pulse 114 H 06/17/22 11:50 Resp 16 06/17/22 11:50 BP 96/52 L 06/17/22 11:50 Pulse Ox 99 06/17/22 11:50 O2 Del Method Room Air 06/17/22 09:56 Pain score (VAS): 2 I/O: Intake & Output 06/16/22 06/17/22 06/17/22 23:59 07:59 15:59 Intake Total 700 740 Output Total 800 300 800 Balance -100 -300 -60 Patient feedback: Patient satisfied with anesthetic care.
[2022-06-17] MEDS: RHO(D) IMMUNE GLOBULIN 300 MCG/2 ML SYRINGE IM (15:20)
--- NOTE | 2022-06-17 16:29 | PC.NURSE ---
[id number] Consulted per mother's request. was placed skin to skin and once feeding cues were visualized RN assisted infant to mother's left breast using the cross cradle positioning. Infant opened with a big, wide gape and latched to the breast with mother sandwich holding her breast. Mother was uncomfortable at first, then the discomfort subsided. Mother described the sensation as pinchy . Infant was detached. Nipple was not misshaped. was effectively latched again. Mother is with a comfortable posture for 10 minutes. demonstrates good rocking jaw motion with accessory muscles moving, appropriate suck/swallow ratios with pausing. Mother acknowledges understanding how to watch and listen for swallowing. Mother describes some pinching discomfort. Mother asked about supplementation and RN reviewed adequate intake/output using the pie demonstration. was detached and nipple was appropriately shaped with no crease, line, slant or misshape. was latched optimally again. Encouraged mother to practice different positions, call if her infant doesn't wake to breastfeed or is painful. Mother voiced understanding education and when to call for assistance. Reported to the Primary RN.
--- NOTE | 2022-06-17 17:55 | PC.NURSE ---
Breast pump provided due to maternal request. Instructions given on cleaning, care, usage, that there should be no pain, pumping schedule for milk production, collection, and storage of human milk. Patient was assessed for correct placement, flange size, to pump for comfort and nipple stretching/stimulation for adequate milk production every 3 hours (8 times in 24 hours) 1-2 times at night. Mother voiced understanding.
[2022-06-18 00:20] VITALS: BP 120/75
[2022-06-18] MEDS: ACETAMINOPHEN 325 MG TABLET 650 MG PO ×3 (00:50→15:40)
[2022-06-18] MEDS: IBUPROFEN 600 MG TABLET PO ×3 (04:31→17:04)
[2022-06-18 04:33] VITALS: BP 110/69
[2022-06-18 08:05] VITALS: BP 110/68; PULSE 96; RESP 16; TEMP 37.1; O2SAT 99
--- NOTE | 2022-06-18 08:49 | PM.OBPNVD ---
OB - PN: Subj Subjective Date/time seen: 06/18/22 08:49 Narrative: Pain OK. Would like to go home. OB - PN: Obj Data Labs 06/17/22 04:19 06/15/22 17:19 Labs: Laboratory Results - last 24 hr 06/17/22 04:18 Blood Type A Negative Antibody Screen TNP Screen Negative Baby's Blood Type A pos Baby's DHIRAJ Negative Doses of RhIg Required 1 OB - PN A/P Plan Comments: A: PPD#2, doing well. P: Home to f/u 6 weeks. Exam Psych: Other: AVSS ABD soft, nontender, fundus firm EXT nontender
[2022-06-18] MEDS: FAMOTIDINE 20 MG TABLET PO (09:08)
[2022-06-18] MEDS: MULTIVIT/MIN/PREN/FOL AC/IRON TABLET 1 TAB PO (09:08)
[2022-06-18] MEDS: DOCUSATE SODIUM 100 MG CAPSULE PO ×2 (09:08→17:04)
[2022-06-18 12:00] VITALS: BP 120/68; PULSE 106; RESP 16; TEMP 37; O2SAT 97
--- NOTE | 2022-06-18 15:11 | PC.NURSE ---
0837 - Purposefully rounded to assess for concerns. Mother is sleeping. [id number] Consulted with patient to assess needs related to . Mother works well with her with encouragement and education. Encouraged understanding of the benefits of skin to skin (demonstrating unwrapping infant and placing upright on her chest), stimulating with massage touch, changing positions to encourage wakefulness, how to watch for early feeding cues, responsive feeding, feeding on demand (aiming for 8-12 times in 24 hours, about every 2-3 hours), milk production, building/maintaining a milk supply, duration of feeding, signs of adequate intake/output and how to record on the feeding sheet. Reviewed positioning and ear, shoulder, hip alignment, supporting the breast to facilitate a deep latch, asymmetrical latch (off-center), leading with the chin with a big, open, wide gape and body close to mother. latched optimally and effectively sucks for a few, then stops. removed from the breast and encouraged multiple times to latch effectively and does for a few sucks on both breast, then stops after a few suck holding the nipple in his mouth. Mother denies pain with the latch. Nipple care reviewed with optimal latch and good positioning. Infant has been supplemented with formula bottles X3 at this point. Mother states she is consistently pumping, however, repeats her concerns about not making milk . Reviewed milk production with mother. is paced bottle fed the formula bottle and demonstrates having bottle feeding skills well. was latched to the left breast and suckled effectively for a few minutes, then stops. This sequence of feeding their baby was repeated practicing latching on both breast. Discussed feeding option with mother and she agreed to use the supplemental nursing system (SNS). Resources used to facilitate learning were used with the tool, mom and baby guide. Mother voiced understanding of skin to skin, stimulating with massage touch, responsive feedings, talking to infant to encourage if it has been 2 -2.5 hours since the start of the last , to call if does not latch, or if there is discomfort with . Resources provided for inpatient/outpatient with office number on the feeding sheet and the mom/baby guide. Mother voiced understanding of information, demonstrated learning and will call if there is a request for assistance. Reported to primary RN. [id number] - Consulted with mother to practice with the supplemental nursing system (SNS). Reviewed positioning and ear, shoulder, hip alignment, supporting the breast to facilitate a deep latch, asymmetrical latch (off-center), leading with the chin with a big, open, wide gape and body close to mother. latched optimally to the left breast, then the right breast, in football position. Education given to mother of how to visualize suck/swallow ratios and listen for drinking at the breast. Infant was able to maintain latch without discomfort to mother and nursed well using supplementation with the SNS. Nipple care reviewed with optimal latch and good positioning. Reviewed good handwashing when or touching the breast/nipples to prevent infection. Resources used to facilitate learning were used with the [visual handouts/QR codes/ tool/mom and baby guide]. Mother voiced understanding of skin to skin, stimulating with massage touch, responsive feedings, hand expressed colostrum, talking to infant to encourage if it has been 2 -2.5 hours since the start of the last , to call if infant does not latch, or if there is discomfort with . Resources provided for inpatient/outpatient with business card, feeding sheet and the mom/baby guide. Parents voiced understanding of information, demonstrated learning and will call if there is a request for assistance. Re
[2022-06-18 15:45] VITALS: BP 114/72
[2022-06-18] MEDS: MEASLES,MUMPS,RUBELLA VACCINE 0.5 ML VIAL SUB-Q (17:05)
--- NOTE | 2022-06-19 14:04 | PC.NURSE ---
Addendum entered by Marina Ortega RN 06/19/22 14:10: Reminded mother if doesn't breastfeed, then pump at least 8 times in 24 hours (1-2 times at night) to stimulate milk production. Reviewed care and cleaning of the pump. Mother voiced understanding how to call for assistance if needed. Original Note: [id number] Mother led the conversation with her experience and plan to feed her infant so far and her ability to pump and feed her . Mother is feeding appropriately for growth of infant and understands stimulating infant to eat if needed. has had appropriate feedings in the last 24 hours meets the outcomes for weight, output and jaundice at this time. Mother states she is confident to continue effectively , pump/feed BM and supplement until her milk is to full volume at home, when to call for assistance and denies any additional assistance or education at this time. Mother is confident with with exception to her milk volume. Reinforced understanding of milk production, transition of milk, signs of adequate intake, transition of stool, prevention/relief of engorgement, responsive watching for feeding cues, the different methods of stimulating infant to breastfeed 2-3 hours after the start of the last feeding, community resources, medication information reviewed per [employer] and when to call a provider using the resource of the mom and baby guide/[facility] website. Mother voiced understanding of the education shared. Reported to the primary RN. [phone] Mother requested assistance with her personal pump. Mother was assessed for a good flange fit using her Spectra, making sure all the parts were there and pumping did not cause pain. Mother voiced understanding and demonstrated correct pumping technique.
[2022-06-20 11:30] VITALS: BP 124/74; PULSE 106; RESP 20; TEMP 36.8; O2SAT 98
== END 2022-06-18 17:33 | disposition home or self-care (01) | DRG 807 ==
LOC: ANHLDR 06-16 15:53 → ANHOB2 06-16 18:38
PROVIDERS: Admitting Provider Obstetrics & Gynecology; PCP Nurse Practitioner Family; Visit Provider Obstetrics & Gynecology
DX: O41.03X0 Oligohydramnios, third trimester, not applicable or unspecified (principal); Z37.0 Single live birth; Z3A.38 38 weeks gestation of pregnancy; O69.81X0 Labor and delivery complicated by cord around neck, without compression, not applicable or unspecified; O13.4 Gestational [pregnancy-induced] hypertension without significant proteinuria, complicating childbirth; O36.8330 Maternal care for abnormalities of the fetal heart rate or rhythm, third trimester, not applicable or unspecified; O99.02 Anemia complicating childbirth; D64.9 Anemia, unspecified
CPT/HCPCS: 36415; 80053; 84550; 85014; 85018; 85025; 85461; 86592; 86850; 86880; 86900; 86901; 88307; 90384; 90710; A9270; J2590; J2790; J2795; J3010; J7030; J7120

== ENCOUNTER 2022-06-21 21:53 | Emergency (ER) | payer OTHER, MEDICAID, SELFPAY ==
--- NOTE | ~2022-06-21 | CT_ITS ---
EXAMINATION: CT abdomen pelvis w con DATE: 06/21/2022 23:48 INDICATION: Abdominal pain and fever 5 days TECHNIQUE: Computed tomography (CT) of the abdomen and pelvis was performed with 100 mL Omnipaque-350 intravenous contrast. Automated exposure control and iterative reconstruction technique were employe d. The dose-length product was 424.22 mGy-cm. COMPARISON: None FINDINGS: Lung bases are clear. Heart size is normal. No pericardial or pleural effusion. Small sliding-type hi atal hernia. Liver, gallbladder, spleen, pancreas, bilateral adrenal glands and kidneys are normal. B owels are normal with no wall thickening or obstruction. Bladder is normal. Enlarged post gravid uter us with gas and small amount of fluid within the endometrial canal which measures approximately 12 mm in thickness. No free intraperitoneal gas or fluid. No pathologically enlarged abdominal or pelvic l ymphadenopathy. Bones are unremarkable. IMPRESSION: 1. Enlarged post gravid uterus with small amount of fluid and gas within the endometrial canal. Gas w ithin the endometrial canal can be seen with endometritis however can be seen in up to 20% of healthy patients in the period for up to 3 weeks . 2. No other acute intra-abdominal/pelvic process. Reviewed, dictated and finalized at location A. NING AND DEVELOPMENT DIRECTOR IMPRESSION: 1. Enlarged post gravid uterus with small amount of fluid and gas within the en dometrial canal. Gas within the endometrial canal can be seen with endometritis however can be seen in up to 20% of healthy patients in the period for up to 3 weeks . 2. No other acute intra-abdominal/pelvic process.
[2022-06-21 21:55] VITALS: BP 117/77; PULSE 137; RESP 18; TEMP 36.6; O2SAT 97
[2022-06-21 22:05] VITALS: BP 117/73
[2022-06-21 22:16] VITALS: BP 110/72
--- NOTE | 2022-06-21 22:28 | ED.GENADULT ---
HPI - General Adult General Chief complaint: Fever Stated complaint: 5 days , fever, chills Time Seen by Provider: 06/21/22 22:12 History of Present Illness HPI narrative: 21-year-old female presented to the emergency department for evaluation of lower abdominal pain. Patient is 5 days postop vaginal delivery by Dr. Davis. Patient reports that she had a vaginal delivery with no complications but did have an episiotomy. Patient states that she does have stitches and that one of the stitches came out yesterday. Patient reports that since noon she has been running a low-grade fever. Patient has been alternating between Tylenol and ibuprofen. Patient's last dose of Motrin was about 7:00. Last dose of Tylenol was earlier in the day. Related Data Home Medications Medication Instructions Recorded Confirmed prenat.vits,jimena,kti-xxoy-[id number] 1 tablet PO DAILY 10/27/21 06/15/22 famotidine 20 mg tablet (Pepcid) 20 mg PO DAILY 06/15/22 06/15/22 Allergies Allergy/AdvReac Type Severity Reaction Status Date / Time No Known Allergies Allergy Verified 06/21/22 21:59 Review of Systems Review of Systems: CONSTITUTIONAL: Denies fever, chills, or sweats. EYES: Denies visual changes, redness, or discharge. ENT: Denies rhinorrhea, congestion, sore throat, or otalgia. CARDIOVASCULAR: Denies chest pain, palpitations, or edema. RESPIRATORY: Denies cough or dyspnea. GASTROINTESTINAL: See HPI GENITOURINARY: See HPI SKIN: Denies rash or itching. MUSCULOSKELETAL: Denies back pain, joint pain, or myalgia. NEUROLOGIC: Denies headache, numbness, or weakness. PSYCHIATRIC: Denies anxiety or depression. [facility] Past Medical History Medical History Anemia Anxiety and depression Surgical History Surgical History No history of previous surgery Family History Family History Father High cholesterol Hypertension Diabetes mellitus Social History Social History Smoking status: Never smoker Alcohol intake: current Alcohol use details: social Substance use: never Lack of Transportation: No Lack of Food: Never True Current Housing: I Have Housing Concerned About Future Housing: No Difficulty Paying Gas/Electric Bills: No Difficulty Paying for Meds: No Currently Unemployed: No Education: Bachelor's Degree Difficulty w/ Childcare or Family Care: No Living arrangements: with family Gender identity (if verbalized by the patient): Female Spiritual care concerns: No Exam Narrative: APPEARANCE: Well appearing, no pain, no distress, well-nourished. HEAD: normocephalic, atraumatic. EYES: PERRLA/EOMI, conjunctivae clear. NOSE: Normal no drainage NECK: Supple. No adenopathy, no masses. RESPIRATORY: Airway patent, respirations nonlabored. Clear to auscultation bilaterally, no rales, rhonchi, wheezing. CARDIOVASCULAR: Regular rate and rhythm without murmurs rubs or gallops. ABDOMINAL: Mild suprapubic tenderness to palpation, distal suture the patient's episiotomy was repaired with no acute bleeding. MUSCULOSKELETAL: Moves all extremities. Strength/ROM intact, No edema, No calf tenderness. NEURO: Alert. Cranial nerves II through XII intact. Good gait. Good coordination SKIN: Warm, dry. Normal Color PSYCHIATRIC: Normal affect/mood. Course Course Emergency Course: IMPRESSION: 1. Enlarged post gravid uterus with small amount of fluid and gas within the endometrial canal. Gas within the endometrial canal can be seen with endometritis however can be seen in up to 20% of healthy patients in the period for up to 3 weeks . 2. No other acute intra-abdominal/pelvic process. Case is discussed with PLATE GRAINER APPRENTICE on-call. Patient does have a elevated leukocytosis of 14.7. Patient was negative f
[2022-06-21] MEDS: SODIUM CHLORIDE 0.9% IV 1,000 ML 999 ML IV CONT (22:53)
[2022-06-21 22:56] LABS: Basophils Percent Auto 0.2 % (0.2-1.2); Eosinophils Percent Auto 0.2 % (0-4.4); Hematocrit 36.4 % (37.0-47.0); Hemoglobin 12.2 g/dL (12.0-15.0); Immature Granulocyte Percent A 0.7 % (0-0.5); Lymphocytes Absolute Auto 0.85 K/mm3 (0.9-3.2); Lymphocytes Percent Auto 5.8 % (18.3-44.2); Mean Corpuscular HGB Conc 33.5 g/dl (32-36); Mean Corpuscular Hemoglobin 31.4 pg (26-34); Mean Corpuscular Volume 93.8 fl (80-100); Mean Platelet Volume 8.8 fl (7.4-10.4); Monocytes Absolute Auto 1.1 K/mm3 (0.1-0.6); Monocytes Percent Auto 7.3 % (2.6-8.5); Neutrophils Absolute Auto 12.6 K/mm3 (1.3-6.7); Neutrophils Percent Auto 85.8 % (45.5-73.1); Platelet Count Result 283 k/mm3 (150-375); Red Blood Count 3.88 M/mm3 (4.2-5.4); Red Cell Distribution Width 18.2 % (11.5-14.5); White Blood Count 14.7 K/mm3 (4.5-10.0)
[2022-06-21 23:09] LABS: Lactic Acid Reflex 1.2 mmol/L (0.7-2.0)
[2022-06-21 23:13] LABS: Alanine Aminotransferase 32 U/L (6-35); Albumin Level 3.9 g/dL (3.5-5.1); Alkaline Phosphatase 131 U/L (38-126); Anion Gap 8 mmol/L (8-16); Aspartate Amino Transferase 30 U/L (14-36); Bilirubin,Total 0.6 mg/dL (0.2-1.3); Blood Urea Nitrogen 16 mg/dL (7-17); CRP 6.6 mg/dL (<1.0); Calcium 8.9 mg/dL (8.4-10.2); Carbon Dioxide 24 mmol/L (22-30); Chloride 105 mmol/L (98-107); Estimated CRCL calculation 103 ml/min; Estimated Glomerular Filt Rate > 60; Glucose 116 mg/dL (65-110); Potassium 3.4 mmol/L (3.4-5.0); Sodium 137 mmol/L (137-145)
[2022-06-21 23:15] LABS: Partial Thromboplastin Time 31.4 SECONDS (22.3-36.8)
[2022-06-21 23:16] VITALS: PULSE 106; RESP 15
[2022-06-21 23:17] VITALS: BP 121/75; PULSE 110; RESP 16
[2022-06-21 23:54] VITALS: PULSE 96; RESP 18
[2022-06-22] VITALS (8 sets, daily range): BP systolic 116; BP diastolic 68; PULSE 88–101; RESP 15–23
[2022-06-22 02:02] LABS: Influenza A QL RT-PCR Negative (Negative); Influenza B QL RT-PCR Negative (Negative); RSV RNA, RT-PCR Negative (Negative); SARS-CoV-2 RNA PCR Negative
== END 2022-06-22 03:01 | disposition home or self-care (01) ==
PROVIDERS: Emergency Provider Emergency Medicine; PCP Nurse Practitioner Family
DX: O86.12 Endometritis following delivery (principal); Z20.822 Contact with and (suspected) exposure to COVID-19; O90.81 Anemia of the puerperium; D64.9 Anemia, unspecified
CPT/HCPCS: 36415; 74177; 80053; 83605; 85025; 85610; 85730; 86140; 86850; 86880; 86900; 86901; 87040; 87637; 96361; 96365; 96374; 99284; J0131; J0696; J7030; Q9967

== ENCOUNTER 2023-03-27 19:44 | Emergency (ER) | payer OTHER, MEDICAID, SELFPAY ==
--- NOTE | 2023-03-27 19:49 | ED.URI ---
HPI - URI/Sore Throat General Chief Complaint: Upper Respiratory Infection Stated Complaint: Sore Throat Time Seen by Provider: 03/27/23 19:50 History of Present Illness HPI Narrative: 22-year-old female presented for complaint of sore throat today. Endorses fever 2 days ago. States she felt well yesterday. Endorses significant other also has fever. She tested negative for COVID the day of onset and yesterday. Taking Tylenol and ibuprofen for symptoms. Related Data Home Medications Medication Instructions Recorded Confirmed No Home Medications 03/27/23 03/27/23 Allergies Allergy/AdvReac Type Severity Reaction Status Date / Time No Known Allergies Allergy Verified 03/27/23 19:45 Review of Systems Review of Systems: CONSTITUTIONAL: Denies body aches, fever, chills, or sweats. EYES: Denies visual changes, redness, or discharge. ENT: Reports sore throat denies rhinorrhea, congestion, or otalgia. CARDIOVASCULAR: Denies chest pain, palpitations, or edema. RESPIRATORY: Denies dyspnea. GASTROINTESTINAL: Denies abdominal pain, nausea, vomiting, or diarrhea. SKIN: Denies rash, itching, or wounds. MUSCULOSKELETAL: Denies back pain, joint pain, or myalgia. NEUROLOGIC: Denies headache PMFSH Past Medical History Medical History Anemia Anxiety and depression Surgical History Surgical History No history of previous surgery Family History Family History Father High cholesterol Hypertension Diabetes mellitus Social History Social History Smoking status: Never smoker Alcohol intake: current Alcohol use details: social Substance use: never Lack of Transportation: No Lack of Food: Never True Current Housing: I Have Housing Concerned About Future Housing: No Difficulty Paying Gas/Electric Bills: No Difficulty Paying for Meds: No Currently Unemployed: No Education: Bachelor's Degree Difficulty w/ Childcare or Family Care: No Living arrangements: with family Gender identity (if verbalized by the patient): Female Spiritual care concerns: No Exam Narrative: GENERAL: well-appearing, no acute distress. EYES: conjunctivae clear ENT: Mucous membranes moist. TM pearly andersen with normal light reflex bilaterally; no tragal tenderness. Oropharynx erythematous Tonsils enlarged 1+ and without exudate. No drooling, no hoarseness, no trismus, uvula midline. No tripod positioning, hot potato voice, or soft palate swelling. NECK: Supple. Bilateral anterior cervical lymphadenopathy CHEST: Clear to auscultation, breath sounds equal. No respiratory distress, speaks in full sentences. HEART: Regular rate and rhythm. No murmur heard. SKIN: Warm, dry, no rash. NEURO: Alert and oriented x3. Course Course Emergency Course: Patient is aware of diagnosis, understands and agrees to treatment plan. Anticipatory guidance given. Patient agrees to follow-up as directed and is aware of reasons to seek care at the emergency department. Portions of this record may have been created with voice recognition software Level of Care: Express Care Visit MDM - URI/Sore Throat MDM Narrative Medical decision making narrative: neg strep result reviewed with pt. Advise supportive treatments. Patient is appropriate for outpatient treatment and follow-up. Differential Diagnosis Differential diagnosis: Likely upper respiratory infection, viral infection and pharyngitis Discharge Plan Discharge Clinical Impression: Pharyngitis Qualifiers: Pharyngitis/tonsillitis etiology: unspecified etiology Qualified Code(s): J02.9 - Acute pharyngitis, unspecified Patient Disposition: Home, Self-Care Condition: Stable Instructions: Antibiotic Form, Pharyngitis (ED) Additional I
[2023-03-27 19:52] VITALS: BP 112/71; PULSE 83; RESP 16; TEMP 36.6; O2SAT 99
== END 2023-03-27 20:08 | disposition home or self-care (01) ==
PROVIDERS: Emergency Provider Nurse Practitioner Family; PCP Nurse Practitioner Family
DX: J02.9 Acute pharyngitis, unspecified (principal)
CPT/HCPCS: 87081; 87880; 99213; G0463

== ENCOUNTER 2024-01-08 20:15 | Emergency (ER) | payer OTHER, SELFPAY ==
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
[2024-01-08 20:17] VITALS: BP 116/80; PULSE 86; RESP 16; TEMP 36.9; O2SAT 99
[2024-01-08] MEDS: ACETAMINOPHEN 500 MG TABLET 1000 MG PO (21:17)
[2024-01-08] MEDS: IBUPROFEN 600 MG TABLET PO (21:18)
--- NOTE | 2024-01-08 21:19 | ED.GENADULT ---
HPI - General Adult General Chief complaint: Extremity Injury, Upper Stated complaint: R wrist injury Time Seen by Provider: 01/08/24 20:27 History of Present Illness HPI narrative: Debi Addison is a 23 y/o female who presents with complaints of right wrist pain She states that two days ago a door fell onto her right wrist Related Data Home Medications Medication Instructions Recorded Confirmed bupropion HCl 150 mg 24 hr tablet, mg PO 01/08/24 extended release Allergies Allergy/AdvReac Type Severity Reaction Status Date / Time No Known Allergies Allergy Verified 01/08/24 20:21 Review of Systems Review of Systems: All systems reviewed & are unremarkable except as noted in HPI and below PMFSH Past Medical History Medical History Anemia Anxiety and depression Surgical History Surgical History No history of previous surgery Family History Family History Father High cholesterol Hypertension Diabetes mellitus Social History Social History Smoking status: Never smoker Alcohol intake: current Alcohol use details: social Substance use: never Lack of Transportation: No Lack of Food: Never True Current Housing: I Have Housing Concerned About Future Housing: No Difficulty Paying Gas/Electric Bills: No Difficulty Paying for Meds: No Currently Unemployed: No Education: Bachelor's Degree Difficulty w/ Childcare or Family Care: No Living arrangements: with family Gender identity (if verbalized by the patient): Female Spiritual care concerns: No Exam Narrative: GENERAL: Well-appearing, well-nourished, and in no acute distress. HEAD: Normocephalic, atraumatic. EYES: PERRLA and EOMI. ENT: Nares clear, no rhinorrhea or epistaxis. Mucous membranes moist. Oropharynx without tonsillar hypertrophy exudate or other lesions. NECK: Supple. No adenopathy or masses. No carotid bruits or JVD CHEST: Clear to auscultation. No respiratory distress. No wheezes rales or rhonchi HEART: Regular rate and rhythm. No murmur heard. Normal peripheral pulses. ABDOMEN: Soft, nontender, nondistended, normal active bowel sounds. EXTREMITIES: Normal range of motion. ecchymosis and swelling to the lateral right wrist SKIN: Warm, dry, no rash. NEURO: No focal deficits. Alert and oriented x3. PSYCH: Normal mood and affect. Course Vital Signs Vital signs: Vital Signs Temperature 36.9 C 01/08/24 20:17 Pulse Rate 86 01/08/24 20:17 Respiratory Rate 16 01/08/24 20:17 Blood Pressure 116/80 01/08/24 20:17 Pulse Oximetry 99 01/08/24 20:17 Oxygen Delivery Room Air 01/08/24 20:17 Temperature 36.9 C 01/08/24 20:17 Pulse Rate 86 01/08/24 20:17 Respiratory Rate 16 01/08/24 20:17 Blood Pressure 116/80 01/08/24 20:17 Pulse Oximetry 99 01/08/24 20:17 Oxygen Delivery Room Air 01/08/24 20:17 Medical Decision Making Differential Diagnosis Differential Diagnosis: 23 y/o with right wrist pain after injury 2 days ago +ecchymosis and swelling to the lateral right wrist ROM intact + neurovascular intact Concern for fracture/ sprain Plan to check XR and treat her pain xr : Negative Placed pt in [facility] wrap / continue [facility] therapy Tylenol/ Motrin and close follow up with PCP Return precautions provided Medical Records Medical records reviewed: Yes I reviewed the external patient's medical records. Vital Signs Vital Signs: Vital Signs Temperature 36.9 C 01/08/24 20:17 Pulse Rate 86 01/08/24 20:17 Respiratory Rate 16 01/08/24 20:17 Blood Pressure 116/80 01/08/24 20:17 Pulse Oximetry 99 01/08/24 20:17 Oxygen Delivery Room Air 01/08/24 20:17 Temperature 36.9 C 01/08/24 20:17 Pulse Rate 8
== END 2024-01-08 21:29 | disposition home or self-care (01) ==
PROVIDERS: Emergency Provider Nurse Practitioner Family; PCP Nurse Practitioner Family
DX: S67.31XA Crushing injury of right wrist, initial encounter (principal); F41.9 Anxiety disorder, unspecified; F32.A Depression, unspecified; Z86.2 Personal history of diseases of the blood and blood-forming organs and certain disorders involving the immune mechanism; Z79.899 Other long term (current) drug therapy; W20.8XXA Other cause of strike by thrown, projected or falling object, initial encounter
CPT/HCPCS: 29125; 73110; 99283; A9270

== ENCOUNTER 2024-05-11 11:02 | Outpatient (CLI) | payer OTHER, SELFPAY ==
[2024-05-13 09:58] LABS: Progesterone 10.6 ng/mL
== END 2024-05-11 11:03 | disposition home or self-care (01) ==
LOC: ANHLAB 11:03
PROVIDERS: PCP Nurse Practitioner Family; Visit Provider Obstetrics & Gynecology
DX: Z34.80 Encounter for supervision of other normal pregnancy, unspecified trimester (principal); Z3A.00 Weeks of gestation of pregnancy not specified
CPT/HCPCS: 36415; 84144; 84702

== ENCOUNTER 2024-05-12 13:22 | Outpatient (CLI) | payer OTHER, SELFPAY ==
--- NOTE | ~2024-05-12 | US_ITS ---
EXAMINATION: US OB <=14 wk fetus w TV DATE: 05/12/2024 14:15 INDICATION: . Uncertain dates. TECHNIQUE: Real-time transabdominal and transvaginal pelvic ultrasound was performed. COMPARISON: Ultrasound 11/24/2021 FINDINGS: TRANSABDOMINAL ULTRASOUND: The uterus measures 8.2 x 6.2 x 6.2 cm. TRANSVAGINAL ULTRASOUND: There is an intrauterine gestational sac with mean diameter of 2.4 cm. A yol k sac is identified. The crown rump length measures 1.3 cm. These measurements correlate with an estimated gestational age of 7 weeks and 2 day(s) (+/-) 4 day(s). heart motion is identified measuring 164 beats per minute (bpm) by M-mode Doppler. There is a small subchronic hematoma. The ri ght ovary measures 2.8 x 2.4 x 2.3 cm. The left ovary measures 3.3 x 1.9 x 2.4 cm. There is no free f luid in the pelvis. IMPRESSION: 1. Single living intrauterine gestation with estimated date of delivery of 12/27/2024. 2. Small subchorionic hematoma. Reviewed, dictated and finalized at location A. OR SYSTEMS ADMINISTRATOR IMPRESSION: 1. Single living intrauterine gestation with estimated date of delivery of 12/06. 2. Small subchorionic hematoma.
== END 2024-05-12 13:23 | disposition home or self-care (01) ==
PROVIDERS: PCP Nurse Practitioner Family; Visit Provider Obstetrics & Gynecology
DX: Z36.9 Encounter for antenatal screening, unspecified (principal)
CPT/HCPCS: 76801; 76817

== ENCOUNTER 2024-06-02 22:31 | Emergency (ER) | payer OTHER, SELFPAY ==
--- NOTE | ~2024-06-02 | US_ITS ---
EXAMINATION: US OB <= 14 weeks fetus DATE: 06/03/2024 09:39 INDICATION: First trimester . TECHNIQUE: Real-time pelvic ultrasound utilizing both a transvaginal and transabdominal probe was pe rformed. The interpreting radiologist was not present for the study. COMPARISON: 05/12/2024 FINDINGS: The uterus measures 11.8 x 7.2 x 8.4 cm. There is an intrauterine gestational sac. A yolk sac and fe sandoval pole are identified. The crown rump length measures 3.6 cm, which is concordant within 2 days of the previously estimated gestational age of 11 weeks and 1 days. heart motion is identified anca suring 149 beats per minute (bpm) by M-mode Doppler. 2.1 x 1.4 x 0.6 cm anechoic subchorionic hematom a. The right ovary measures 2.6 x 1.7 x 1.6 cm. The left ovary measures 2.4 x 2.2 x 1.9 cm. Vascular eitan w identified in both ovaries on color Doppler. There is no free fluid in the pelvis. IMPRESSION: 1. Single living fetus with heart rate of 149 bpm. 2. [place]-rump length of 3.6 cm which is concordant within 2 days of the estimated gestational age bas ed on ultrasound performed on 05/12/2024 of 11 weeks 1 day(s) with ultrasound estimated date of delive ry (TORIE) of 12/27/2024. 3. Persistent small subchorionic hematoma. Reviewed, dictated and finalized at location A. ING LATHE OPERATOR IMPRESSION: 1. Single living fetus with heart rate of 149 bpm. 2. [place]-rump length of 3.6 cm which is concordant within 2 days of the estimat ed gestational age based on ultrasound performed on 05/12/2024 of 11 weeks 1 day (s) with ultrasound estimated date of delivery (TORIE) of 12/27/2024. 3. Persistent small subchorionic hematoma.
[2024-06-03 00:01] VITALS: BP 117/75; PULSE 82; RESP 16; TEMP 36.9; O2SAT 100
[2024-06-03 03:05] VITALS: BP 108/64; PULSE 80; RESP 18; TEMP 36.9; O2SAT 100
[2024-06-03 08:30] LABS: BEDSIDEPREGUCG Positive (Negative)
[2024-06-03 08:49] LABS: Basophils Percent Auto 0.3 % (0.2-1.2); Eosinophils Absolute Auto 0.1 K/mm3 (0-0.3); Eosinophils Percent Auto 0.8 % (0-4.4); Hematocrit 37.8 % (37.0-47.0); Hemoglobin 12.8 g/dL (12.0-15.0); Immature Granulocyte Absolute 0.02 K/mm3 (0.00-0.031); Immature Granulocyte Percent A 0.3 % (0-0.5); Lymphocytes Absolute Auto 1.84 K/mm3 (0.9-3.2); Lymphocytes Percent Auto 28.9 % (18.3-44.2); Mean Corpuscular HGB Conc 33.9 g/dl (32-36); Mean Corpuscular Hemoglobin 30.1 pg (26-34); Mean Corpuscular Volume 88.9 fl (80-100); Mean Platelet Volume 9.4 fl (7.4-10.4); Monocytes Absolute Auto 0.5 K/mm3 (0.1-0.6); Monocytes Percent Auto 8.2 % (2.6-8.5); Neutrophils Absolute Auto 3.9 K/mm3 (1.3-6.7); Neutrophils Percent Auto 61.5 % (45.5-73.1); Platelet Count Result 242 k/mm3 (150-375); Red Blood Count 4.25 M/mm3 (4.2-5.4); Red Cell Distribution Width 13.7 % (11.5-14.5); White Blood Count 6.4 K/mm3 (4.5-10.0)
[2024-06-03 08:54] LABS: Add Urine Microscopic? YES; Appearance Urine Cloudy (Clear); Bacteria Urine 2+ /hpf; Bilirubin Urine Negative (Negative); Blood Urine Negative (Negative); Color Urine Yellow (Yellow); Glucose Urine UA Negative (Negative); Ketones Urine Trace mg/dL (Negative); Leukocyte Esterase Ur Trace LEU/UL (Negative); Mucus Urine Present /lpf; Nitrate Urine Negative (Negative); Protein Urine Trace mg/dL (Negative); RBC Urine 0-2 /hpf (0-2); Specific Grav Ur 1.032 (1.001-1.035); Squamous Epithelial Cell Urine Moderate /hpf (Few)
[2024-06-03 08:55] VITALS: BP 104/91; PULSE 77; RESP 18; O2SAT 100
[2024-06-03 09:00] LABS: Alanine Aminotransferase 11 U/L (6-35); Albumin Level 4.7 g/dL (3.5-5.1); Alkaline Phosphatase 64 U/L (38-126); Anion Gap 5 mmol/L (4-12); Aspartate Amino Transferase 25 U/L (14-36); Bilirubin,Total 0.6 mg/dL (0.2-1.3); Blood Urea Nitrogen 11 mg/dL (7-17); Calcium 9.6 mg/dL (8.4-10.2); Carbon Dioxide 27 mmol/L (22-30); Chloride 103 mmol/L (98-107); Estimated CRCL calculation 101 ml/min; Estimated Glomerular Filt Rate > 60; Glucose 85 mg/dL (65-110); Potassium 3.4 mmol/L (3.4-5.0); Sodium 135 mmol/L (137-145)
[2024-06-03 09:05] LABS: Prothrombin Time 13.2 Seconds (11.1-14.7)
[2024-06-03 09:06] LABS: Partial Thromboplastin Time 23.1 Seconds (22.3-36.8)
[2024-06-03] MEDS: ACETAMINOPHEN 500 MG TABLET 1000 MG PO (09:10)
--- NOTE | 2024-06-03 10:09 | ED_ITS ---
HPI - General Adult General Chief complaint: Abdominal Pain Stated complaint: 11 WEEKS , PELVIC PAIN & PRESSURE Time Seen by Provider: 06/03/24 08:45 History of Present Illness HPI narrative: This is a 23 old female at 11 weeks gestation presenting with pelvic pressure. symptoms started yesterday at 7:00 p.m.. They are not associated with any vaginal bleeding or discharge. She denies any dysuria urgency or frequency. She has had a previous ultrasound confirmed the fetus is in her uterus. Related Data Home Medications ?Medication ?Instructions ?Recorded ?Confirmed ?Last Taken ?Type bupropion HCl 150 mg 24 hr tablet, mg PO 01/08/24 Unknown History extended release Allergies Allergy/AdvReac Type Severity Reaction Status Date / Time No Known Allergies Allergy Verified 01/08/24 20:21 PMFSH Past Medical History Medical History Anemia Anxiety and depression Surgical History Surgical History No history of previous surgery Family History Family History Father High cholesterol Hypertension Diabetes mellitus Social History Social History Smoking status: Never smoker Alcohol intake: current Alcohol use details: social Substance use: never Lack of Transportation: No Lack of Food: Never True Current Housing: I Have Housing Concerned About Future Housing: No Difficulty Paying Gas/Electric Bills: No Difficulty Paying for Meds: No Currently Unemployed: No Education: Bachelor's Degree Difficulty w/ Childcare or Family Care: No Living arrangements: with family Gender identity (if verbalized by the patient): Female Spiritual care concerns: No Exam 2 Narrative: APPEARANCE: No apparent distress. Head: atraumatic. EYES: EOMI, NOSE: Atraumatic NECK: Trachea midline RESPIRATORY: No increased rate of breathing CARDIOVASCULAR: RRR, ABDOMINAL: mild tenderness in the suprapubic region without guarding or rebound MUSCULOSKELETAl: No obvious deformities NEURO: Alert. Moving 4/4 extremities SKIN:: Warm, dry. Normal color PSYCHIATRIC: Normal affect Course Vital Signs Vital signs: Vital Signs Temperature 98.4 F 06/03/24 00:01 Pulse Rate 82 06/03/24 00:01 Respiratory Rate 16 06/03/24 00:01 Blood Pressure 117/75 06/03/24 00:01 Pulse Oximetry 100 06/03/24 00:01 Oxygen Delivery Room Air 06/03/24 00:01 Temperature 98.4 F 06/03/24 03:05 Pulse Rate 77 06/03/24 08:55 Respiratory Rate 18 06/03/24 08:55 Blood Pressure 104/91 H 06/03/24 08:55 Pulse Oximetry 100 06/03/24 08:55 Oxygen Delivery Room Air 06/03/24 00:01 Medical Decision Making MDM Narrative Medical decision making narrative: -Course: 23-year-old female at 11 weeks gestation presenting with pelvic pressure in . Transvaginal ultrasound showed a live intrauterine fetus. Urine indicative of infection. Patient will be treated for a UTI as that may be the source of her pressure. Patient will be discharged follow-up with her OBGYN. -DDX includes but is not limited to: threatened miscarriage, discomforts of , UTI -Co-morbidities complicating care: , anxiety -Shared decision making / Disposition: discharged -RX Keflex Vital Signs Vital Signs: Vital Signs Temperature 98.4 F 06/03/24 00:01 Pulse Rate 82 06/03/24 00:01 Respiratory Rate 16 06/03/24 00:01 Blood Pressure 117/75 06/03/24 00:01 Pulse Oximetry 100 06/03/24 00:01 Oxygen Delivery Room Air 06/03/24 00:01 Temperature 98.4 F 06/03/24 03:05 Pulse Rate 77 06/03/24 08:55 Respiratory Rate 18 06/03/24 08:55 Blood Pressure 104/91 H 06/03/24 08:55 Pulse Oximetry 100 06/03/24 08:55 Oxygen Delivery Room Air 06/03/24 00:01 Lab Data 06/03/24 08:38 06/03/24 08:38 Labs: Lab Results 06/03/24 06/03/24 06/03/24 Range/Units 08:28 08:30 08:38 WBC 6.4 (4.5-10.0) K/mm3 RBC 4.25 (4.2-5.4) M/mm3 Hgb 12.8 (12.0-15.0) g/dL Hct 37.8 (37.0-47.0) % MCV 88.9 (80-100) fl MCH 30.1 (26-34) pg MCHC 33.9 (32-36) g/dl RDW 13.7 (11.5-14.5) % Plt Count 242 (150-375) k/mm3 MPV 9.4 (7.4-10.4) fl Immature Gran % (Auto) 0.3 (0-0.5) % Neut % (Auto) 61.5 (45.5-73.1) % Lymph % (Auto) 28.9 (18.3-44.2) % [place] % (Auto) 8.2 (2.6-8.5) % Eos % (Auto) 0.8 (0-4.4) % Baso % (Auto) 0.3 (0.2-1.2) % Lymph # (Auto) 1.84 (0.9-3.2) K/mm3 [place] # (Auto) 0.5 (0.1-0.6) K/mm3 Eos # (Auto) 0.1 (0-0.3) K/mm3 Baso # (Auto) 0.0 (0.0-0.1) K/mm3 Abs Immat Gran (auto) 0.02 (0.00-0.031) K/mm3 Absolute Neuts (auto) 3.9 (1.3-6.7) K/mm3 Absolute Nucleated RBC 0.000 (0.0-0.012) K/mm3 Nucleated RBC % 0.0 (0.0-0.2) % PT 13.2 (11.1-14.7) Seconds INR 1.0 APTT 23.1 (22.3-36.8) Seconds Sodium 135 L (137-145) mmol/L Potassium 3.4 (3.4-5.0) mmol/L Chloride 103 (98-107) mmol/L Carbon Dioxide 27 (22-30) mmol/L Anion Gap 5 (4-12) mmol/L BUN 11 D (7-17) mg/dL Creatinine 0.60 L (0.7-1.0) mg/dL Estim Creat Clear Calc 101 ml/min Estimated GFR > 60 (59 - ) Glucose 85 (65-110) mg/dL Calcium 9.6 (8.4-10.2) mg/dL Total Bilirubin 0.6 (0.2-1.3) mg/dL AST 25 (14-36) U/L ALT 11 (6-35) U/L Alkaline Phosphatase 64 (38-126) U/L Total Protein 8.0 (6.3-8.2) g/dL Albumin 4.7 (3.5-5.1) g/dL Beta HCG, Quant 38704.00 mIU/ML Urine Color Yellow (Yellow) Urine Appearance Cloudy H (Clear) Urine pH 6.0 (5.0-9.0) Ur Specific [place] 1.032 (1.001-1.035) Urine Protein Trace (Negative) mg/dL Urine Glucose (UA) Negative (Negative) mg/dL Urine Ketones Trace H (Negative) mg/dL Ur Blood (Man) Negative (Negative) Urine Nitrate Negative (Negative) Urine Bilirubin Negative (Negative) Urine Urobilinogen 1.0 (<2.0) mg/dL Leukocyte Esterase Rfl Trace H (Negative) DAVID/UL Urine RBC 0-2 (0-2) /hpf Urine WBC 11-20 H (0-3) /hpf Ur Squamous Epith Cells Moderate (Few) /hpf Urine Bacteria 2+ H /hpf Urine Casts 3-5 Urine Mucus Present /lpf POC Urine HCG, Qual Positive (Negative) Blood Type A Negative Antibody Screen Negative Screen Not Reportable Baby's Blood Type Not Reportable Baby's DHIRAJ Not Reportable Doses of RhIg Required 0 Discharge Plan Discharge Clinical Impression: UTI (urinary tract infection), Patient Disposition: Home, Self-Care Condition: Stable Instructions: Antibiotic Form, Dysuria (ED), Abdominal Pain in (ED) Additional Instructions: You were seen in the emergency department for pelvic pressure in . Your ultrasound here showed a live intrauterine fetus. Your urine has evidence of infection which will be treated with antibiotics. Please follow-up with your OBGYN for further management. If you develop severe pelvic pain, vaginal bleeding or any new or worsening symptoms please return to ED for re-evaluation. Patient Language: Setswana Prescriptions: New cephalexin 500 mg capsule 500 mg PO Q12H Qty: 10 0RF No Action bupropion HCl 150 mg tablet extended release 24 hr PO Follow-up/Referrals: Amber Wray APRN [Primary Care Provider] -
[2024-06-03 10:21] VITALS: BP 113/77; PULSE 92; RESP 18; O2SAT 99
--- OUTSIDE RECORDS SUMMARY | 2024-06-10 08:35 | XMS_ITS | Encounter Summary ---
Author Organization [facility] Address [address] [place] [address]. [place], [place] [id number] [place] [id number] Care Team Providers Care Customer Advocacy Manager Name Role Phone Unavailable Primary Care Provider Unavailabl e Encounter Details Date Type Department Care Team (Late st Contact Info) Description 02/22/2007 Abstract [facility] Emergency Room [address] [place] [address] Social History Tobacco Use Types Packs/Day Years Used Date Smoking Tobacco: Never Assessed Comments Unknown Sex and Gender Information Value Date Recorded Sex Assigned at Not on file Legal Sex Female 7:46 PM CDT Gender Identity Not on file Sexual Orientation Not on file documented as of this encounter Plan of Treatment Not on file documented as of this encounter Visit Diagnoses Not on filedocumented in this encounter
--- OUTSIDE RECORDS SUMMARY | 2024-06-10 08:35 | XMS_ITS | Data Portability ---
Author Organization [facility], Main Office Address [address] [place] [address] Assessment Encounter Date Assessment Date Assessment LastModified by Organization Details LastModified Time 03/30/2023 03/30/2023 D/w pt about her findings and further plan of care. Meds as directed. OTC symptomatic Rx explained in detail. Very good liquid intake explained. Proper hand hygiene explained. Educated about alarming symptoms to monitor at home and call us back Or get checked in ED if any concerns. F/u as directed. [email or web address] Not available 03/30/2023 09:38:53 Plan of Treatment Reminders Order Date Submit Date Provider Last Modified By Organization Details Last Modified Time Details Appointments None recorded. Lab rapid strep group A, throat [address], [address], 3 10:35:40 rapid flu (A+B) [address], [address], 3 10:36:43 lipid panel, serum 2022 023 [facility], [address] [place], [address], 3 08:12:53 TSH, serum or plasma 2022 023 [facility], [address] [place], [address], 3 08:12:53 beta-HCG, quantitativ e, serum or plasma 2022 023 [facility], [address], [address], [place], [address], 3 08:12:53 HbA1c (hemoglobin A1c), blood 2022 023 [facility], [address], [address], [place], [address], 3 08:12:53 CMP, serum or plasma 2022 023 [employer], [address], [address], [place], [address], 3 08:12:53 CBC w/ auto diff 2022 023 [facility], [address], [address], [place], [address], 3 08:12:52 vitamin B12, serum 2022 023 [facility], [address], [address], [place], [address], 3 08:12:52 iron + TIBC + ferritin, serum 2022 023 [facility], [address], [address], [place], [address], 3 08:12:52 Referral None recorded. Procedures None recorded. Surgeries None recorded. Imaging None recorded. Medication Orders azithromyci n 250 mg tablet 2022 023 [email or web address] [id number], [address], [place], [id number], 3 17:45:32 Medrol (Arcenio) 4 mg tablets in a dose pack 2023 024 [facility] #[id number], [address], [place], [id number], 4 11:59:35 albuterol sulfate HFA 90 mcg/actuati on aerosol inhaler 2023 024 [facility] #[id number], [address], [place], [phone], 4 11:59:37 Patient TargetsNo targets recorded. Patient Instructions Encounter Date Encounter Id Patient Instructions Last Modified By Organization Details Last Modified Time 05/18/2023 [id number] Fu with new provider prn. 05/18/23 pt aware of Kamala departure. Not available 05/18/2023 18:07:44 Reason for Referral None Reported. Results Created Date Observation Date Name Description Value Unit Range Abnormal Flag Note LastModifiedBy Organization Detail LastModifiedTime 12/27/19 22 12/26/2021 MONICA TIN ferritin 8 NG/mL 6.24-1 37 Not Available [facility] (Lab) [address] [place], [address], 12/26/2021 20:09:34 12/27/19 22 12/26/2021 IRON/ TIBC PANEL total iron binding capacity 461 mcg/d L 265-47 5 Not Available [facility] (Lab) [address] [place], [address], 12/26/2021 19:52:48 12/27/19 22 12/26/2021 IRON/ TIBC PANEL % transferrin saturation 23 % 20-55 Not Available [facility] (Lab) [address] [place], [address], 12/26/2021 19:52:48 12/27/19 22 12/26/2021 IRON/ TIBC PANEL unsaturated iron bind capacity 356 mcg/d L 126-38 2 Not Available [facility] (Lab) [address] [place], [address], 12/26/2021 19:52:48 12/27/19 22 12/26/2021 IRON/ TIBC PANEL iron 105 mcg/d L 42-175 Not Available [facility] (Lab) [address] [place], [address], 12/26/2021 19:52:48 12/27/19 22 12/26/2021 CBC W/O DIFFE RENTI AL white blood cells 7.9 x10'3 /uL 4.2-10 .8 Not Available [facility] (Lab) [address] [place], [address], 12/26/2021 19:12:55 12/27/19 22 12/26/2021 CBC W/O DIFFE RENTI AL red blood cells 4.06 x10'6 /uL 3.80-5 .20 Not Available [facility] (Lab) [address] [place], [address], 12/26/2021 19:12:55 12/27/19 22 12/26/2021 CBC W/O DIFFE RENTI AL hemoglobin 12.7 g/dL 12.0-1 5.6 Not Available [facility] (Lab) [address] [place], [address], 12/26/2021 19:12:55 12/27/19 22 12/26/2021 CBC W/O DIFFE RENTI AL hematocrit 38.3 % 35.7-4 5.7 Not Available [facility] (Lab) [address] [place], [address], 12/26/2021 19:12:55 12/27/19 22 12/26/2021 CBC W/O DIFFE RENTI AL mean red cell volume 94.3 fL 82.0-9 9.0 Not Available [facility] (Lab) [address] [place], [address], 12/26/2021 19:12:55 12/27/19 22 12/26/2021 CBC W/O DIFFE RENTI AL mean red cell hemoglobin 31.3 pg 27.0-3 3.0 Not Available [facility] (Lab) [address] [place], [address], 12/26/2021 19:12:55 12/27/19 22 12/26/2021 CBC W/O DIFFE RENTI AL mean RBC HGB concentratio n 33.2 g/dL 31.0-3 6.0 Not Available [facility] (Lab) [address] [place], [address], 12/26/2021 19:12:55 12/27/19 22 12/26/2021 CBC W/O DIFFE RENTI AL red cell distribution width 14.6 % 11.8-1 5.5 Not Available [facility] (Lab) [address] [place], [address], 12/26/2021 19:12:55 12/27/19 22 12/26/2021 CBC W/O DIFFE RENTI AL platelets 278 x10'3 /uL 150-40 0 Not Available [facility] (Lab) [address] [place], [address], 12/26/2021 19:12:55 12/27/1912/26/2021 CBC W/O DIFFE RENTI AL mean platelet volume 10.4 fL 9.0-12 .4 Not Available [facility] (Lab) [address] [place], [address], 12/26/2021 19:12:55 03/30/20 23 03/30/2023 rapid flu (A+B) Flu A negati ve Not Available [facility], [place], [address], 03/30/2023 09:32:06 03/30/20 23 03/30/2023 rapid flu (A+B) Flu B negati ve Not Available [address], [place], [address], 03/30/2023 09:32:06 03/30/20 23 03/30/2023 rapid strep group A, throa t STREP A negati ve Not Available [address], [place], [address], 03/30/2023 09:32:03 10/28/19 22 10/27/2021 US, obste tric No observ ation record ed. [id number] [place] [address] [address] [facility], [place], [address], 08/05/2022 05:06:32 10/28/19 22 10/27/2021 XR, chest No observ ation record ed. [id number] [place] [address] [address], [place], [address], 08/05/2022 05:06:32 06/22/19 23 06/21/2022 CT, abdom en + pelvi s, w/ contr ast No observ ation record ed. [id number] [place] [address] [address] [facility], [place], [address], 08/05/2022 05:06:32 Result Notes None recorded. Problems Name Problem SNOMED Code Status Onset Date Resolution Date Notes Provider Name and Address Organization Details Recorded Time Sore throat 009785264 Active 2022 Seth Wolf MD [address], [place] [address], [place], [address] , mention [facility] 3 09:32:01 Pharyngitis 924591252 Active 2022 Seth Wolf MD [address], [facility] [address], [place], [address] , mention [facility] 3 09:45:13 Fatigue 06701455 Active 2022 Seth Wolf MD [address], [address], [place], [address] , [place] [facility] 3 09:50:24 Nausea 601273555 Active 2022 Amber Wray NP [address], [address], [place], [address] , [place] [facility] 3 15:00:28 Dizziness 329762970 Active 2022 Amber Wray NP [address], [address], [place], [address] , [place] [facility] 3 15:00:31 Bronchitis 21821139 Active 2023 NELL Aguirre [address], [address], [place], [address] , [place] [facility] 4 11:52:48 Bronchiectasi s 70452539 Active 2023 NELL Aguirre [address], [address], [place], [address] , [place] [facility] 4 16:06:35 Chronic obstructive pulmonary disease 74056489 Active 2023 NELL Aguirre [address], [address], [place], [address] , [place] [facility] 4 16:06:35 Deep venous thrombosis 104515756 Active 2023 NELL Aguirre [address], [address], [place], [address] , [place] [facility] 4 16:06:35 Edema of lower extremity 414892940 Active 2023 NELL Aguirre [address], [address], [place], [address] , [place] [facility] 4 16:06:35 Dyspnea 365767237 Active 2023 Judy FerreiraNELL villela [address], [address], [place], [address] , [place] [employer] 4 16:06:35 Acute bronchitis 47352441 Active 2023 Judy FerreiraNELL villela [address], [address], [place], [address] , [place] [facility] 4 16:07:05 Hyperemesis gravidarum 62116935 Active 2021 Not Available [facility] 3 04:52:35 Tachycardia 1855219 Active 2019 Not Available [employer] 3 04:52:35 Iron deficiency 20364098 Active 2019 Not Available [facility] 3 04:52:35 Vasovagal syncope 176363857 Active 2019 Not Available [facility] 3 04:52:35 Anxiety 12715848 Active 2019 Not Available [facility] 3 04:52:35 Upper respiratory infection 89394173 Active 2019 Not Available [facility] 3 04:52:35 Posterior rhinorrhea 34547659 Active 2019 Not Available [facility] 3 04:52:35 71842912 Active 2021 Not Available [facility] 3 04:52:35 Iron deficiency anemia 67189466 Active 2019 Not Available [facility] 3 04:52:35 Problem Notes None recorded. Procedures Surgical History Date Name Laterality Status Provider Name and Address Organization Details Recorded Time 11/05/2021 Date of Last Pap Smear completed Amber Kelley RN [place] [facility] 05/18/2023 16:33:12 Imaging Results Imaging Date Name Status LastModified by [facility] Details LastModified Time 10/27/2021 US, obstetric completed [id number] [facility] [address], [place], [address], 08/05/2022 05:06:32 10/27/2021 XR, chest completed [id number] [facility] [address], [place], [address], 08/05/2022 05:06:32 06/21/2022 CT, abdomen + pelvis, w/ contrast completed [id number] [facility] [address], [place], [address], 08/05/2022 05:06:32 Procedure Notes None recorded. Medical Equipment None Reported. Allergies No known drug allergies Medications Name Sig Start Date Stop Date Status Note LastModified by Organization Details LastModified Time amoxicill in 500 mg capsule Take 1 capsule every 8 hours by oral route for 10 days. 06/24 completed Not Available Not Available Not Available triamcino lone acetonide 0.5 % topical cream APPLY A THIN LAYER TO THE AFFECTED AREA(S) BY TOPICAL ROUTE 2 TIMES PER DAY active Not Available Not Available No t Available cetirizin e 10 mg tablet TAKE 1 TABLET BY MOUTH ONCE DAILY 12/26 completed Not Available Not Available Not Available azithromy tyson 250 mg tablet TK 2 TS PO ON DAY 1, THEN TK 1 T PO D FOR 4 DAYS active Not Available Not Available No t Available phenazopy ridine 200 mg tablet TAKE 1 TABLET BY MOUTH THREE TIMES DAILY FOR 2 DAYS NEEDED WITH FOOD 10/24 completed Not Available Not Available Not Available ondansetr on HCl 4 mg tablet TAKE 1 TABLET BY MOUTH EVERY 6 HOURS NEEDED 04/21 completed Not Available Not Available Not Available Tubersol 5 tub. unit/0.1 mL intraderm al injection solution Inject 0.1 mL every day by intrader mal route for 1 day. 03/14 completed Not Available Not Available Not Available sertralin e 100 mg tablet TAKE 1 TABLET BY MOUTH EVERY DAY 05/18 completed Not Available Not Available Not Available metronida zole 500 mg tablet Take 1 tablet 3 times a day by oral route as directed for 5 days. active No alcohol for next 1 week. Not Available Not Available Not Available ciproflox acin 500 mg tablet Take 1 tablet every 12 hours by oral route for 5 days. active Not Available Not Available No t Available famotidin e 20 mg tablet Take 1 tablet every 12 hours by oral route as directed for 7 days. active Not Available Not Available No t Available metoclopr amide 5 mg tablet TAKE 1 TABLET BY MOUTH EVERY 8 HOURS NEEDED FORNAUSE A AND VOMITING 12/26 completed Not Available Not Available Not Available cephalexi n 500 mg capsule TAKE 1 CAPSULE THREE TIMES DAILY FOR 5 DAYS 04/21 completed Not Available Not Available Not Available oseltamiv ir 75 mg capsule TAKE 1 CAPSULE BY MOUTH EVERY 12 HOURS FOR 5 DAYS 12/26 completed Not Available Not Available Not Available fluoxetin e 10 mg capsule TAKE 1 CAPSULE BY MOUTH ONCE DAILY active Not Available Not Available No t Available hydroxyzi ne HCl 25 mg tablet TAKE 1 TABLET BY MOUTH EVERY NIGHT AT BEDTIME NEEDED FOR ANXIETY/ SLEEP active Not Available Not Available No t Available mupirocin 2 % topical ointment 07/22 completed Not Available Not Available Not Available ibuprofen 600 mg tablet TAKE 1 TABLET BY MOUTH EVERY 6 HOURS NEEDED FOR CRAMPS 04/21 completed Not Available Not Available Not Available methylpre dnisolone 4 mg tablets in a dose pack TAKE 1 TABLET BY MOUTH EVERY DAY FOR 6 DAYS DIRECTED active Not Available Not Available No t Available albuterol sulfate HFA 90 mcg/actua tion aerosol inhaler INHALE 2 PUFFS BY MOUTH EVERY 4 HOURS NEEDED active Not Available Not Available No t Available ferrous sulfate 325 mg (65 mg iron) tablet,de layed release TAKE 1 TABLET BY MOUTH TWICE DAILY FOR 90 DAYS 03/14 completed Not Available Not Available Not Available norethind sharan (contrace ptive) 0.35 mg tablet TAKE 1 TABLET BY MOUTH DAILY 05/18 completed Not Available Not Available Not Available ondansetr on 4 mg disintegr ating tablet DISSOLVE 1 TABLET ON THE TONGUE EVERY 6 HOURS NEEDED FOR NAUSEA OR VOMITING 04/21 completed Not Available Not Available Not Available fluticaso ne propionat e 50 mcg/actua tion nasal spray,connie pension USE 1 SPRAY(S) IN EACH NOSTRIL ONCE DAILY active Not Available Not Available No t Available sertralin e 50 mg tablet TAKE 1 TABLET BY MOUTH EVERY DAY 04/21 completed Not Available Not Available Not Available naproxen 500 mg tablet TAKE 1 TABLET BY MOUTH TWICE DAILY NEEDED 05/18 completed Not Available Not Available Not Available Lessina 0.1 mg-20 mcg tablet TAKE 1 TABLET BY MOUTH EVERY DAY 05/18 completed Not Available Not Available Not Available escitalop ann 10 mg tablet TAKE 1 TABLET BY MOUTH ONCE DAILY active Not Available Not Available No t Available bupropion HCl XL 150 mg 24 hr tablet, extended release TAKE 1 TABLET BY MOUTH EVERY DAY active Not Available Not Available No t Available nitrofura ntoin monohydra te/macroc rystals 100 mg capsule TAKE 1 CAPSULE BY MOUTH TWICE DAILY FOR 5 DAYS 10/24 completed Not Available Not Available Not Available FeroSul 325 mg (65 mg iron) tablet TAKE 1 TABLET BY MOUTH ONCE DAILY 05/18 completed Not Available Not Available Not Available EluRyng 0.12 mg-0.015 mg/24 hr vaginal ring INSERT 1 RING VAGINALL Y FOR 3 WEEKS THEN REMOVE FOR 1 WEEK DIRECTED . 05/18 completed Not Available Not Available Not Available Paxlovid 300 mg (150 mg x 2)-100 mg tablets in a dose pack TK 2 NIRMATRE LVIR TS AND 1 RITONAVI R T TOGETHER PO BID FOR 5 DAYS BID FOR 5 DAYS 04/21 completed Not Available Not Available Not Available Vitals Date Recorded Body mass index (BMI) Body height Oxygen saturation Oxygen saturation in Arterial blood by Pulse oximetry Heart rate Body temperature Body weight Systolic blood pressure Diastolic blood pressure Provider Name and Address Organization Details Last Updated DateTime 2 24.4 kg/m2 160.02 cm 96 % 96 % 101.99 /min 98.1 [degF] 16988.7 5 g 102 mm[Hg] 68 mm[Hg] Not Available [facility] 3 04:48:35 Date Recorded Body height Provider Name an d Address Organization Details Last Updated DateTime 11/11/2021 160.02 cm Not Available [facility] 3 04:48:36 Date Recorded Body height Body mass index (BMI) Body weight Body temperature Heart rate Respiratory rate Oxygen saturation Oxygen saturation in Arterial blood by Pulse oximetry Systolic blood pressure Diastolic blood pressure Provider Name and Address Organization Details Last Updated DateTime 3 165.1 cm 23.3 kg/m2 26966.9 3 g 98.1 [degF] 80 /min 16 /min 99 % 99 % 110 mm[Hg] 74 mm[Hg] Camron Jerez [place] [facility] 3 09:37:36 Date Recorded Body height Body mass index (BMI) Body weight Body temperature Heart rate Oxygen saturation Oxygen saturation in Arterial blood by Pulse oximetry Respiratory rate Systolic blood pressure Diastolic blood pressure Provider Name and Address Organization Details Last Updated DateTime 3 165.1 cm 23.4 kg/m2 02011.0 8 g 96.8 [degF] 91 /min 98 % 98 % 16 /min 114 mm[Hg] 60 mm[Hg] Amber Kelley RN [facility] [employer] [facility] 3 16:29:47 Date Recorded Body height Body mass index (BMI) Body weight Body temperature Heart rate Respiratory rate Heart rate Oxygen saturation Oxygen saturation in Arterial blood by Pulse oximetry Systolic blood pressure Diastolic blood pressure Provider Name and Address Organization Details Last Updated DateTime 4 165.1 cm 23.7 kg/m2 30694.1 7 g 96.9 [degF] 122 /min 24 /min 122 /min 97 % 97 % 110 mm[Hg] 72 mm[Hg] Amber Kelley RN [facility] [employer] [facility] 4 11:43:20 Social History Question Answer Notes LastModified by Organizat ion Details LastModified Time Tobacco Smoking Status Never Smoker Not Available [facility] 08/05/2022 04:41:30 Do You Have An Advance Directive? No Information not available 05/18/2023 What Is Your Level Of Alcohol Consumption? Occasional [id number] Information not available 08/05/2022 What Is Your Level Of Caffeine Consumption? Occasional [id number] Information not available 08/05/2022 How Much Tobacco Do You Chew? None [id number] Information not available 08/05/2022 What Is Your Code Status? Full Code Information not available 05/18/2023 In The 14 Days Before Symptom Onset, Have You Had Close Contact With A Laboratory-confir med COVID-19 While That Case Was Ill? No [id number] Information not available 08/05/2022 In The 14 Days Before Symptom Onset, Have You Had Close Contact With A Person Who Is Under Investigation For COVID-19 While That Person Was Ill? No [id number] Information not available 08/05/2022 Are You Currently Employed? Yes Information not available 05/18/2023 What Type Of Diet Are You Following? REGULAR [id number] Information not available 08/05/2022 Which Illicit Or Recreational Drugs Have You Used? None [id number] Information not available 08/05/2022 Do You Or Have You Ever Used E-cigarettes Or Vape? 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 3 Information not available 05/18/2023 On Those Days That You Engage In Moderate To Strenuous Exercise, How Many Minutes, On Average, Do You Exercise? 45 Information not available 05/18/2023 Have There Been Any Changes To Your Family Or Social Situation? No [id number].[id number] 3145 Information not available 08/05/2022 Do You Use Insect Repellent Routinely? Yes [id number] 1505 Information not available 08/05/2022 Do You Have A Medical Power Of Paperboard Box Maker? No Information not available 05/18/2023 How Many Children Do You Have? 1 Information not available 05/18/2023 Have You Ever Been Counseled For Unhealthy Alcohol Use? No [id number] Information not available 08/05/2022 Do You Have Any Pets? Yes [id number] Information not available 08/05/2022 What Is Your Relationship Status? Single Engaged Information not available 05/18/2023 Do You Use Your Seat Belt Or Car Seat Routinely? Yes [id number].[id number] Information not available 08/05/2022 Are You Sexually Active? Yes Information not available 05/18/2023 Do You Have Smoke And Carbon Monoxide Detectors In Your Home? Yes [id number] 0195 Information not available 08/05/2022 Do You Or Have You Ever Used Smokeless Tobacco? Never Used Smokeless Tobacco MIGRATION.[id number] 0535 Information not available 08/05/2022 Are There Any Smokers In Your House? No MIGRATION.001883 3913 Information not available 08/05/2022 How Much Tobacco Do You Smoke? No MIGRATION.[id number] 1744 Information not available 08/05/2022 Do You Participate In Social Media? Yes [id number] [id number] Information not available 08/05/2022 What Types Of Sporting Activities Do You Participate In? Walk, Jog Information not available 05/18/2023 Do You Feel Stressed (tense, Restless, Nervous, Or Anxious, Or Unable To Sleep At Night)? [id number].[id number] 0840 Information not available 08/05/2022 Do You Use Any Illicit Or Recreational Drugs? No MIGRATION.[id number] 8089 Information not available 08/05/2022 Do You Use Sunscreen Routinely? Yes MIGRATION.524779 0413 Information not available 08/05/2022 Has Tobacco Cessation Counseling Been Provided? No MIGRATION.[id number] 3854 Information not available 08/05/2022 Have You Recently Traveled Abroad? No MIGRATION.[id number] 9689 Information not available 08/05/2022 Do You Have Any Dietary Restrictions? No MIGRATION.[id number] Information not available 08/05/2022 Sex: Female Functional Status Question Answer Note LastModified by [employer] ion Details LastModified Time What is your exercise level? Moderate [id number] Information not available 08/05/2022 Mental Status None recorded. Family History Relationship Description Onset Age of this Age Resolved Age Notes LastModified by Organization Details LastModified Time Mother High glucose level in blood [id number] Not available 08/05/2022 04:43:19 Mother Diabetes mellitus [id number] Not available 08/05/2022 04:43:19 Mother Hypercholest erolemia [id number] Not available 08/05/2022 04:43:19 Father Hypertensive disorder [id number] Not available 08/05/2022 04:43:19 Father Diabetes mellitus MIGRATION.702 [id number] Not available 08/05/2022 04:43:19 Father Chronic obstructive pulmonary disease [id number] Not available 08/05/2022 04:43:19 Medical History No medical history recorded. Gynecological History Statement/Question Response Abnormal Pap N Flow Moderate Date of LMP 05/03/2021 STIs/STDs N Dislike of Light during Menstrual Headac he N Date of Last Pap Duration of Flow (days) 5 Current Control Method Other Breast Problems none Frequency of Cycle (Q days) 28 Sexually Active? Y Menses Monthly Y Date of Last Pap Smear 11/05/2021 Discharge none Obstetrics History GPAL:G 0 P 0 0 0 0 Immunizations Vaccine Type Date Status Note Provider Nam e and Address Organization Details Recorded Time SARS-COV-2 (COVID-19) vaccine, UNSPECIFIED 1 completed Not Available [facility] 08/05/2022 05:05:48 SARS-COV-2 (COVID-19) vaccine, UNSPECIFIED 1 completed Not Available [facility] 08/05/2022 05:05:49 Influenza, split virus, quadrivalent, PF 0 completed Not Available [facility] 08/05/2022 05:05:49 Tdap 0 completed Not Available [facility] 08/05/2022 05:05:49 Past Encounters Encounter ID Performer Location Encounter Start Date Encounter Closed Date Diagnosis/Indication Diagnosis SNOMED-CT Code Diagnosis ICD10 Code [id number] [facility] [id number] 1 09/05/2020 00:00:00 09/05/2020 16:33:11 [id number] [facility] [address] [address] 1 10/02/2020 00:00:00 10/02/2020 09:49:55 [id number] [address] [address] 1 11/28/2020 00:00:00 11/28/2020 11:32:02 [id number] [facility] [address] 1 12/20/2020 00:00:00 12/20/2020 10:56:58 [id number] [facility] [address] [address] 1 01/08/2021 00:00:00 01/08/2021 11:12:20 [id number] [address] [place] [address] 1 06/24/2021 00:00:00 06/24/2021 10:47:[id number] [address] 1 10/24/2021 00:00:00 10/24/2021 18:39:[id number] [address] 1 11/11/2021 00:00:00 11/11/2021 11:52:[id number] [address] 1 12/26/2021 00:00:00 12/26/2021 11:14:19 [id number] Seth Wolf MD [address] [address] 1 03/30/2023 09:29:23 03/30/2023 10:03:30 Sore throat 650290306 J02.9 Pharyngitis 283907120 J0 2.9 Fatigue 90637946 R53.83 [id number] Amber Wray NP [address] [address] 1 05/18/2023 16:19:08 05/18/2023 18:06:57 Nausea 897051536 R11.0 Dizziness 877765221 R42 Anemia screening 3793308 07 Z13.0 Diabetes m ellitus screening 188062848 Z13.1 Thyroid di sorder screening 673460247 Z13.29 Hyperlipid emia screening 101188391 Z13.821 [id number] NELL Aguirre [address] [address] 1 09/02/2023 11:33:25 09/02/2023 12:15:23 Bronchitis 45216366 J40 Health Concerns Section Related Observation LastModified by Organization Detai ls LastModified Time None Recorded Concern Status LastModified by Organization Details LastModified Time None Recorded Advance Directives Directive N: Payers Encounter Date Sequence Insurance Name Policy Number Policy Oseguera Covered Member ID Oseguera Member ID Guarantor Name 03/30/2023 1 [facility] [id number] Debi L Addison [id number] Debi Addison 03/30/2023 2 [place] [facility] Debi Addison [id number] Debi Addison 05/18/2023 1 R [id number] Debi L Addison [id number] Debi Addison 05/18/2023 2 [place] [facility] Debi Addison [id number] Debi Addison 09/02/2023 1 [facility] [id number] Debi L Addison [id number] Debi Addison 09/02/2023 2 [place] [facility] Debi Addison [id number] Debi Addison Notes Date Note Type Note Provider Name and Address Organization Details Recorded Time 03/30/2023 text/html ACV: C/o sore throat, cough, congestion, fatigue for last 1 week. Pt was seen in last weekend and was advised to do otc meds, but she is still not getting any better. Denies any known sick contact. No breast feeding. Seth Wolf MD [address] [place] [address], [phone], [facility] [employer] 03/30/2023 09:51:21 05/18/2023 text/html Here for eval of dizziness and nausea. LMP: Last week of Apr 2023. Took test last week and it was negative. Is sexually active. Not on any kind of control. Does not track cycles. Nausea and dizziness started about a week ago. Has not vomited but has gotten close. For the first few days, it was constant (especially the dizziness). 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 Now dizziness is intermittent. Has not taken a COVID test. Denies any cough, runny nose, sore throat. Denies fever, chills, body aches, diarrhea. States that she drinks mostly water, sometimes coffee in the morning. (about 2-3 plastic bottle walker a day). States for breakfast she usually eats a bagel or granola bar. Lunch or dinner is usually chicken and pasta. Salads on occasion. Pizza on occasion. Denies alcohol use (occasional - a couple times a year). Denies any other drug use. Had son in Jun 2022. States that she has not had same symptoms any time post . States she used to take iron supplements. States she was 17 when she started iron supplements. Due for blood work. Patient also reports bad anxiety. States she is on wellbutrin but doesn't really like it. Interested in changing medication. Here for eval of dizziness and nausea. LMP: Last week of May 03, 2023. Took test last week and it was negative. Is sexually active. Not on any kind of control. Does not track cycles. Nausea and dizziness started about a week ago. Has not vomited but has gotten close. For the first few days, it was constant (especially the dizziness). 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 Has not taken a COVID test. Denies any cough, runny nose, sore throat. Denies fever, chills, body aches, diarrhea. States that she drinks mostly water, sometimes coffee in the morning. (about 2-3 plastic bottle walker a day). States for breakfast she usually eats a bagel or granola bar. Lunch or dinner is usually chicken and pasta. Salads on occasion. Pizza on occasion. Denies alcohol use (occasional - a couple times a year). Denies any other drug use. Had son in Jun 2022. States that she has not had same symptoms any time post . States she used to take iron supplements. States she was 17 when she started iron supplements. Due for blood work. Patient also reports bad anxiety. States she is on wellbutrin but doesn't really like it. Interested in changing medication. Amber Wray, NIECY [address] [facility], [facility] [address], [place], [address], [facility] 05/18/2023 18:08:27 09/02/2023 text/html Debi Addison is here today for a sick visit. Her symptoms began Wednesday08/28/23. She began with a fever, sore throat, chest congestion, and a productive cough. She has yellow/green sputum. She has taken OTC tylenol, mucinex, and flonase. She has been using vicks and a humidifier. Judy Huerta, PROOF PRESS OPERATOR [address] [facility], [facility] [address], [place], [address], [facility] 09/02/2023 11:59:54 OBGyn Episode No OBEpisode recorded.
--- OUTSIDE RECORDS SUMMARY | 2024-06-10 08:35 | XMS_ITS | Clinical Summary ---
Author Organization [facility] Address [address] [place] [address]. [place] [address] [place] [address] Care Team Providers Care Instructor [employer] Name Role Phone Rona Kirk MD Primary Care Provider [phone] [phone] Social History Tobacco Use Types Packs/Day Years Used Date Smoking Tobacco: Never Assessed Comments Unknown Sex and Gender Information Value Date Recorded Sex Assigned at Not on file Legal Sex Female 7:46 PM CDT Gender Identity Not on file Sexual Orientation Not on file Plan of Treatment Health Maintenance Due Date Last Done Comments Cervical Cancer Screening Pa p Smear (Age 21 to 29) Every 3 Years 1998 Cervical Cancer Screening 1998 Annual Physical 2001 HPV Vaccines (1 - 3-dose series) 2013 Hepatitis C 2016 DTaP, Tdap and Td Vaccines ( 1 - Tdap) 2017 Hepatitis B Vaccines (1 of 3 - 19+ 3-dose series) 2017 COVID-19 Vaccine ( - 2023-2 5 season) 2024 Influenza Adult (#1) 2024 Meningococcal Vaccine Aged Out No jessy ben eligible based on patient's age to complete this topic Pneumococcal Vaccine: Pediat rics (0 to 5 Years) and At-Risk Patients (6 to 64 Years) Aged Out No longer eligible b ased on patient's age to complete this topic RSV Immunizations Under 20 Months Aged Out No longer eligible based on patient's age to complete this topic Care Teams Instructor Correspondence [employer] Relationship Specialty Start Date End Date Rona Kirk MD [address] [place] [address] PCP - General PEDIATRICS 04/07/19
--- OUTSIDE RECORDS SUMMARY | 2024-06-10 08:35 | XMS_ITS | Encounter Summary ---
Author Organization [facility] Address [facility] [facility] [place] [address] [place] [address] Care Team Providers Care Manager Diesel Name Role Phone Unavailable Primary Care Provider Unavailabl e Encounter Details Date Type Department Care Team (Late st Contact Info) Description 10/28/2016 Abstract [facility] [address] [place] [address] Rona Kirk MD [address] [place] [address] Social History Tobacco Use Types Packs/Day Years Used Date Smoking Tobacco: Never Assessed Comments Unknown Sex and Gender Information Value Date Recorded Sex Assigned at Not on file Legal Sex Female 7:46 PM CDT Gender Identity Not on file Sexual Orientation Not on file documented as of this encounter Plan of Treatment Not on file documented as of this encounter Visit Diagnoses Diagnosis Tachycardia Tachycardia, unspecified documented in this encounter
--- OUTSIDE RECORDS SUMMARY | 2024-06-10 08:35 | XMS_ITS | Encounter Summary ---
Author Organization [facility] Address [facility] [facility] [place] [address] [place] [address] Care Team Providers Care Technical Specialist Cytology Name Role Phone Rona Kirk MD Primary Care Provider [phone] [phone] Encounter Details Date Type Department Care Team (Late st Contact Info) Description 06/01/2020 Abstract [facility] Emergency Services [address] [place] [address] Bin Bragg MD [address] [place] [address] Social History Tobacco Use Types Packs/Day Years Used Date Smoking Tobacco: Never Assessed Comments Unknown Sex and Gender Information Value Date Recorded Sex Assigned at Not on file Legal Sex Female 7:46 PM CDT Gender Identity Not on file Sexual Orientation Not on file documented as of this encounter Plan of Treatment Not on file documented as of this encounter Procedures Procedure Name Priority Date/Time Associated Diagnosis Comments DRUG SCREEN, GENERAL TOX, URINE Routine 06/02/2020 12:38 AM SUPERVISOR WET ROOM URINALYSIS WI REFLEX TO CULTURE Routine 06/02/2020 12:38 AM SUPERVISOR WET ROOM TEST URINE Routine 06/02/2020 12:38 AM SUPERVISOR WET ROOM CORONAVIRUS (COVID-19) ANTIGEN DIRECT OPTICAL Routine 06/02/2020 12:35 AM SUPERVISOR WET ROOM TSH W/REFLEX Routine 06/02/2020 12:30 AM SUPERVISOR WET ROOM COMPREHENSIVE METABOLIC PANEL Routine 06/02/2020 12:30 AM SUPERVISOR WET ROOM CBC W/DIFF AUTOMATED Routine 06/02/2020 12:30 AM SUPERVISOR WET ROOM THYROXINE, FREE (FT4) Routine 06/02/2020 12:30 AM SUPERVISOR WET ROOM documented in this encounter Results * DRUG SCREEN, GENERAL TOX, URINE (06/02/2020 12:38 AM SUPERVISOR WET ROOM) [facility] CANNABINOIDS SCREEN (U) NEGATIVE NR: NEGATIVE <50 ng/dL [facility] PHENCYCLIDINE PCP (U) NEGATIVE NR: NEGATIVE <25 ng/dL [facility] COCAINE S/P/B NEGATIVE NR: NEGATIVE <150 ng/dL [facility] METHAMPHETAMINE S/P/B NEGATIVE NR: NEGATIVE <500 ng/dL [facility] OPIATE SCREEN (U) NEGATIVE NR: NEGATIVE <100 ng/dL [facility] AMPHETAMINE SCREEN (U) NEGATIVE NR: NEGATIVE <500 ng/dL [facility] BENZODIAZEPINES SCREEN (U) NEGATIVE NR: NEGATIVE <150 ng/dL [facility] TRICYCLIC ANTIDEPRESSANT SCREEN (U) NEGATIVE NR: NEGATIVE <300 ng/dL [facility] METHADONE (U) NEGATIVE NR: NEGATIVE <200 ng/dL [facility] BARBITURATES SCREEN (U) NEGATIVE NR: NEGATIVE <200 ng/dL [facility] OXYCODONE S/P/B NEGATIVE NR: NEGATIVE <100 ng/dL [facility] PROPOXYPHENE SCREEN (U) NEGATIVE NR: NEGATIVE <300 ng/dL [facility] BUPRENORPHINE SCREEN (U) NEGATIVE NR: NEGATIVE <10 ng/dL [facility] PH (U) 7.0 NR:5-8.5 [facility] SPECIFIC GRAVITY (U) 1.020 NR:1.010-1. 025 [facility] Comment: Note: This is a screening test. Please call within 48 hours if you require a confirmatory test. Specific gravity results below 1.003 or above 1.035, Temperature results below 90F or above 100F or a pH outside 4.5-8.5 may indicate specimen adulteration. 06/02/2020 12:3 8 AM SUPERVISOR WET ROOM 06/02/2020 12:47 AM SUPERVISOR WET ROOM Bin Bragg MD URINE ORDERABLES Final Result Performing Organization Address [facility] Co de Phone Number JACINDA PITTMAN [address] [place] [address] * TEST URINE (06/02/2020 12:38 AM SUPERVISOR WET ROOM) URINE HCG TEST NEGATIVE NR: NEGATIVE [facility] 06/02/2020 12:3 8 AM SUPERVISOR WET ROOM 06/02/2020 12:47 AM SUPERVISOR WET ROOM Bin Bragg MD URINE ORDERABLES Final Result Performing Organization Address [facility] de Phone Number JACINDA DIAZ TORRES MARTINEZ [address] [place] [address] * URINALYSIS WI REFLEX TO CULTURE (06/02/2020 12:38 AM SUPERVISOR WET ROOM) COLOR (U) YELLOW NR: YELLOW [facility] TRANSPARENCY CLEAR NR: CLEAR [facility] TORRES MARTINEZ PH (U) 7.0 NR:5-8.5 [facility] SPECIFIC GRAVITY (U) 1.020 NR:1.010-1.0 25 [facility] PROTEIN (U) NEGATIVE NR: NEGATIVE [facility] TORRES MARTINEZ GLUCOSE (U) NEGATIVE NR: NEGATIVE [facility] TORRES MART[facility] KETONE (U) NEGATIVE NR: NEGATIVE [facility] BILIRUBIN (U) NEGATIVE NR: NEGATIVE [facility] UROBILINOGEN 1.0 NR:0.2-1.0 [facility] TORRES MARTINEZ LEUKOCYTES (U) NEGATIVE NR: NEGATIVE HS [facility] TORRES MARTINEZ NITRITES NEGATIVE NR: NEGATIVE [facility] BLOOD (U) NEGATIVE NR: NEGATIVE [facility] TORRES MARTINE[facility] Comment:COMMENT 06/02/2020 12:3 8 AM SUPERVISOR WET ROOM 06/02/2020 12:47 AM SUPERVISOR WET ROOM Bin Bragg MD URINE ORDERABLES Final Result Performing Organization Address [facility] [place] [address] * CORONAVIRUS (COVID-19) ANTIGEN DIRECT OPTICAL (06/02/2020 12:35 AM SUPERVISOR WET ROOM) Pathologist [facility] CORONAVIRUS ANTIGEN IA NOT DETECTED NR: NEGATIVE [facility] lot number [id number] EXP 09/10/20 [facility] Comment:COMMENT 06/02/2020 12:3 5 AM SUPERVISOR WET ROOM 06/02/2020 12:45 AM SUPERVISOR WET ROOM Bin Bragg MD MICROBIOLOGY - GENERAL ORDERAB LES Final Result Performing Organization Address [facility] [place] [address] * THYROXINE, FREE (FT4) (06/02/2020 12:30 AM SUPERVISOR WET ROOM) Pathologist [facility] FREE T4 0.96 0.76 - 1.46 ng/dL [facility] Comment: ?FREE T4 INTERPRETATION ? HIGH DOSES OF BIOTIN MAY INTERFERE WITH THIS TEST RESULT. ?CORRELATION TO CLINICAL PRESENTATION RECOMMENDED 06/02/2020 12:3 0 AM SUPERVISOR WET ROOM 06/02/2020 12:44 AM SUPERVISOR WET ROOM Bin Bragg MD LABORATORY Final Result Performing Organization Address [facility] de Phone Number [facility] [address] [place] [address] * (ABNORMAL) TSH W/REFLEX (06/02/2020 12:30 AM SUPERVISOR WET ROOM) TSH 10.393(H) 0.358 - 3.740 uIU/mL [facility] 06/02/2020 12:3 0 AM SUPERVISOR WET ROOM 06/02/2020 12:44 AM SUPERVISOR WET ROOM Bin Bragg MD LABORATORY Final Result [facility] [address] [place] [address] * (ABNORMAL) COMPREHENSIVE METABOLIC PANEL (06/02/2020 12:30 AM SUPERVISOR WET ROOM) [facility] GLUCOSE 105(H) 70 - 99 mg/dL [facility] SODIUM S/P/B 141 136 - 145 mmol/L [facility] POTASSIUM S/P/B 3.0(LL) 3.5 - 5.1 mmol/L [facility] Comment:GB COMMENT TIME CALLED 0128 [facility] COMMENT YES [facility] COMMENT YES [facility] CHLORIDE S/P/B 104 100 - 108 mmol/L [facility] CO2 26 21 - 32 mmol/L [facility] BUN 13 7 - 18 mg/dL [facility] CREATININE S/P/B 0.8 0.5 - 1.2 mg/dL [facility] TOTAL PROTEIN S/P/B 7.7 6.4 - 8.2 g/dL [facility] CALCIUM S/P/B 9.0 8.5 - 10.1 mg/dL [facility] BILIRUBIN TOTAL S/P/B 0.4 0.2 - 1.2 mg/dL [facility] ALKALINE PHOSPHATASE S/P/B 48(L) 50 - 136 U/L [facility] ALBUMIN S/P/B 4.0 3.4 - 5.0 g/dL [facility] AST 11(L) 15 - 37 U/L [facility] ALT 12(L) 14 - 55 U/L [facility] PATIENT'S AGE 19 YEARS [facility] EGFR NON-AFR. AMER. 96 ml/min [facility] EGFR AFR. AMER. 116 ml/min [facility] ANION GAP 14 8 - 20 [facility] Comment: ?GFR INTERPRETATION ??According to the National Kidney Foundation, normal results range from 90 to 120 mL/min/1.73 m2. Older people will have lower than normal GFR levels, because GFR decreases with age. Normal value ranges may vary slightly among different laboratories 06/02/2020 12:3 0 AM SUPERVISOR WET ROOM 06/02/2020 12:45 AM SUPERVISOR WET ROOM Bin Bragg MD LABORATORY Final Result [facility] [address] [place] [address] * CBC W/DIFF AUTOMATED (06/02/2020 12:30 AM SUPERVISOR WET ROOM) WBC 5.6 4.5 - 11.0 cmm [facility] RBC 4.2 4.0 - 5.2 M/cumm [facility] HGB 13.4 12.0 - 16.0 g/dL [facility] HCT 38.7 36.0 - 46.0 % [facility] MCV 92.1 80.0 - 100 fL [facility] MCH 31.9 26.0 - 34.0 pg [facility] MCHC 34.6 31.0 - 37.0 g/dL [facility] RDW 12.8 11.6 - 14.8 % [facility] PLT 262 140 - 415 cmm [facility] MPV 10 7 - 12 fl [facility] ABS. NEUTROPHILS 2.75 1.50 - 8.00 x10^3 [facility] ABS. LYMPHOCYTES 2.18 0.21 - 5.42 x10^3 [facility] ABS. MONOCYTES 0.54 0.04 - 1.37 x10^3 [facility] ABS. EOSINOPHILS 0.07 0.00 - 0.68 x10^3 [facility] ABS. BASOPHILS 0.02 0.00 - 0.08 x10^3 [facility] ABS. IMMATURE GRANULOCYTES 0.00 0.00 - 0.06 x10^3 [facility] NEUTROPHILS % 49.4 40.0 - 74.0 % [facility] LYMPHOCYTES % 39.2 14.0 - 46.0 % [facility] MONOCYTES % 9.7 4.0 - 13.0 % [facility] EOSINOPHILS % 1.3 0.0 - 7.0 % [facility] BASOPHILS % 0.4 0.0 - 3.0 % [facility] IMMATURE GRANS % 0.00 0.00 - 0.43 % [facility] MANUAL DIFFERENTIAL NOT INDICATED [facility] WBC MORPHOLOGY NOT INDICATED [facility] RBC MORPHOLOGY NOT INDICATED [facility] PLT MORPH. NOT INDICATED [facility] 06/02/2020 12:3 0 AM SUPERVISOR WET ROOM 06/02/2020 12:45 AM SUPERVISOR WET ROOM us Bin Bragg MD LABORATORY Final Result [facility] [address] [place] [address] documented in this encounter Visit Diagnoses Not on filedocumented in this encounter Care Teams Technical Specialist Cytology Relationship Specialty Start Date End Date Rona Kirk MD [address] [address] PCP - General PEDIATRICS 04/07/19 documented as of this encounter
--- OUTSIDE RECORDS SUMMARY | 2024-06-10 08:35 | XMS_ITS | Patient Health Summary ---
Author Organization [facility] Address [address] [place] [address] Care Team Providers Care Business Office Technology Instructor Name Role Phone Rona Kirk MD Primary Care Provider [phone]- [phone] Note from [facility],non-owned Affiliates and Associated Physician Practices is amultiple site organization consisting of ambulatory clinics and hospital sitesin [place], [place], [place] and [place]. This disclosure is being madepursuant to the Care Everywhere program and may not contain all information available regarding this patient. Last updated 18.[facility] Allergies No known active allergies Medications Be aware that medications may not be up to date on this document. Always verify current medications with the patient. No known medications Social History Tobacco Use Types Packs/Day Years Used Date Smoking Tobacco: Never Sex and Gender Information Value Date Recorded Sex Assigned at Not on file Gender Identity Not on file Sexual Orientation Not on file Last Filed Vital Signs Vital Sign Reading Time Taken Comments Blood Pressure 118/68 05/18/2016 7:12 PM [facility] [employer] [facility] Pulse 76 05/18/2016 7:12 PM [facility] [employer] [facility] Temperature 36.8 ??C (98.2 ??F) 05/18/2016 7:12 PM CS T Respiratory Rate 16 05/18/2016 7:12 PM [facility] [employer] [facility] Oxygen Saturation - - Inhaled Oxygen Concentration - - Weight 49.4 kg (109 lb) 05/18/2016 7:12 PM [facility] [employer] [facility] Height 161.3 cm (5' 3.5 ) 05/18/2016 7:12 PM [facility] [employer] [facility] Body Mass Index 19.01 05/18/2016 7:12 PM [facility] [employer] [facility] Care Teams Business Office Technology Instructor Relationship Specialty Start Date End Date Didriksen, Rona, MD [address] [place] [address] PCP - General Pediatrics 05/18/16
--- OUTSIDE RECORDS SUMMARY | 2024-06-10 08:35 | XMS_ITS | Encounter Summary ---
Author Organization [facility] Address [address] [place] [address]. [place], [place] [address] [place] [address] Care Team Providers Care Home Care Associate Name Role Phone Unavailable Primary Care Provider Unavailabl e Encounter Details Date Type Department Care Team (Late st Contact Info) Description 03/19/2006 Abstract [facility] Emergency Room [address] [place] [address] Social History Tobacco Use Types [...]
--- OUTSIDE RECORDS SUMMARY | 2024-06-10 08:35 | XMS_ITS | Encounter Summary ---
Author Organization [facility] Address [address] [place] [address] Care Team Providers Care Turbo Operator Name Role Phone Rona Kirk MD Primary Care Provider [phone] Reason for Visit * Reason Comments Sports Physical Encounter Details Date Type Department Care Team (Late st Contact Info) Description 05/18/2016 7:00 PM LABORER A[employer]ATIC [employer] Office Visit [facility] AT [address] [phone] Provider, Tatianna Nogueira [place] Sports physical (Primary Dx) Social History Tobacco Use Types Packs/Day Years Used Date Smoking Tobacco: Never Sex and Gender Information Value Date Recorded Sex Assigned at Not on file Gender Identity Not on file Sexual Orientation Not on file documented as of this encounter Last Filed Vital Signs Vital Sign Reading Time Taken Comments Blood Pressure 118/68 05/18/2016 7:12 PM LABORER [employer]AT[employer] Pulse 76 05/18/2016 7:12 PM LABORER A[employer]IC [employer] Temperature 36.8 ??C (98.2 ??F) 05/18/2016 7:12 PM CS T Respiratory Rate 16 05/18/2016 7:12 PM LABORER A[employer]ATIC [employer] Oxygen Saturation - - Inhaled Oxygen Concentration - - Weight 49.4 kg (109 lb) 05/18/2016 7:12 PM LABORER [employer] Height 161.3 cm (5' 3.5 ) 05/18/2016 7:12 PM LABORER AQUATIC LIFE Body Mass Index 19.01 05/18/2016 7:12 PM LABORER [employer] Body Mass Index Percentile 20.48% 05/18/2016 7:1 2 PM LABORER A[employer] Growth Chart: CDC (Girls, 2- 20 Years) documented in this encounter Patient Instructions * Patient Instructions* Jaida Harris APRN-CNP - 05/18/2016 7:10 PM LABORER [employer] Concussion prevention [employer] documented in this encounter Progress Notes * Jaida Harris APRN-CNP - 05/18/2016 7:10 PM CST [facility] Chief Complaint Patient presents with ??? Sports Physical SUBJECTIVE: HPI Pt is here for a sports pnhys for dance Past Medical History Diagnosis Date ??? NEGATIVE PAST MEDICAL HISTORY - SEE PROBLEM LIST No current outpatient prescriptions on file prior to visit. No current facility-administered medications on file prior to visit. Past Surgical History Procedure Laterality Date ??? Negative surgical history History Social History ??? Marital status: Single Spouse name: N/A ??? Number of children: N/A ??? Years of education: N/A Occupational History ??? Not on file. Social History Main Topics ??? Smoking status: Never Smoker ??? Smokeless tobacco: Not on file ??? Alcohol use: Not on file ??? Drug use: Not on file ??? Sexual activity: Not on file Other Topics Concern ??? Not on file Social History Narrative ??? No narrative on file No family history on file. No current outpatient prescriptions on file. No current facility-administered medications for this visit. No Known Allergies REVIEW OF SYSTEMS: ROS See scanned form OBJECTIVE: General appearance: alert, well appearing, and in no distress. BP 118/68 Pulse 76 Temp 98.2 ??F (Oral) Resp 16 Wt 49.4 kg (109 lb) BMI 19.01 kg/m2 Physical Exam See scanned form ASSESSMENT: Encounter Diagnosis Name Primary? Sports physical Yes PLAN: Concussion prevention [employer] documented in this encounter Plan of Treatment Not on file documented as of this encounter Visit Diagnoses Diagnosis Sports physical- Primary Other general medical examination for administrative purposes documented in this encounter Care Teams Turbo Operator Relationship Specialty Start Date End Date Rona Kirk MD [address] [address] PCP - General Pediatrics 05/18/16 documented as of this encounter
--- OUTSIDE RECORDS SUMMARY | 2024-06-10 08:35 | XMS_ITS | Clinical Summary ---
Author Organization [facility] Address [address] [place] [address] Care Team Providers Care Room Service Waiter Name Role Phone Rona Kirk MD Primary Care Provider [phone] Source Comments [facility],non-owned Affiliates and Associated Physician Practices is amultiple site organization consisting of ambulatory clinics and hospital sitesin [place], [place], [place] and [place]. This disclosure is being madepursuant to the Care Everywhere program and may not contain all information available regarding this patient. Last updated 18.[facility] Allergies No known active allergies Medications Be [...] Comments Blood Pressure 118/68 05/18/2016 7:12 PM SPREADER OPERATOR AUTOMATIC Pulse 76 05/18/2016 7:12 PM SPREADER OPERATOR AUTOMATIC Temperature 36.8 ??C (98.2 ??F) 05/18/2016 7:12 PM CS T Respiratory Rate 16 05/18/2016 7:12 PM SPREADER OPERATOR AUTOMATIC Oxygen Saturation - - Inhaled Oxygen Concentration - - Weight 49.4 kg (109 lb) 05/18/2016 7:12 PM SPREADER OPERATOR AUTOMATIC Height 161.3 cm (5' 3.5 ) 05/18/2016 7:12 PM SPREADER OPERATOR AUTOMATIC Body Mass Index 19.01 05/18/2016 7:12 PM SPREADER OPERATOR AUTOMATIC Plan of Treatment Health Maintenance Due Date Last Done Comments PAP SMEAR 1998 HIV SCREENING 2013 HPV VACCINE (1 - 3-dose series) 2013 CHLAMYDIA/GONORRHEA SCREENING 2014 HEPATITIS C SCREENING 08/29/2016 DTAP/TDAP/TD VACCINES (1 - Tdap) 2017 HEPATITIS B VACCINE (1 of 3 - 19+ 3-dose series) 2017 DEPRESSION SCREENING 06/07/2023 COVID-19 VACCINE (1 - 2023-2 5 season) 2024 INFLUENZA VACCINE (#1) 2024 ZOSTER VACCINE (1 of 2) 2048 HIB VACCINE Aged Out No longer eligi ble based on patient's age to complete this topic MENINGOCOCCAL VACCINE Aged Out No jessy ben eligible based on patient's age to complete this topic PNEUMOCOCCAL VACCINE Aged Out No long er eligible based on patient's age to complete this topic Care Teams Room Service Waiter Relationship Specialty Start Date End Date Rona Kirk MD [address] [place] [address] PCP - General Pediatrics 05/18/16
--- OUTSIDE RECORDS SUMMARY | 2024-06-10 08:35 | XMS_ITS | Referral Summary ---
Author Organization [facility] Address [address] [place] [address] Care Team Providers Care Resource Management Specialist Name Role Phone Rona Kirk MD Primary Care Provider [phone] Source Comments [facility],non-owned Affiliates and Associated Physician Practices is amultiple site organization consisting of ambulatory clinics and hospital sitesin [place], [place], [place] and [place]. This disclosure is being madepursuant to the Care Everywhere program and may not contain all information available regarding this patient. Last updated 18.[facility] [employer] Allergies No known active allergies Medications Be [...] Comments Blood Pressure 118/68 05/18/2016 7:12 PM COMPLIANCE INVESTIGATOR Pulse 76 05/18/2016 7:12 PM COMPLIANCE INVESTIGATOR Temperature 36.8 ??C (98.2 ??F) 05/18/2016 7:12 PM CS T Respiratory Rate 16 05/18/2016 7:12 PM COMPLIANCE INVESTIGATOR Oxygen Saturation - - Inhaled Oxygen Concentration - - Weight 49.4 kg (109 lb) 05/18/2016 7:12 PM COMPLIANCE INVESTIGATOR Height 161.3 cm (5' 3.5 ) 05/18/2016 7:12 PM COMPLIANCE INVESTIGATOR Body Mass Index 19.01 05/18/2016 7:12 PM COMPLIANCE INVESTIGATOR Plan of Treatment Not on file Care Teams Resource Management Specialist Relationship Specialty Start Date End Date Rona Kirk MD [address] [place] [address] PCP - General Pediatrics 05/18/16
--- OUTSIDE RECORDS SUMMARY | 2024-06-10 08:35 | XMS_ITS | Encounter Summary ---
Author Organization [facility] Address [facility] [place] [address] [place] [address] Care Team Providers Care School Athletic Director Name Role Phone Unavailable Primary Care Provider Unavailabl e Encounter Details Date Type Department Care Team (Late st Contact Info) Description 08/14/2017 Abstract [facility] Emergency Room [address] [place] [address] Lico Velasquez MD [address] [address] Social History Tobacco Use Types Packs/Day Years [...] Procedure Name Priority Date/Time Associated Diagnosis Comments STREP A, DNA Routine 08/14/2017 10:08 PM ARABIC TRANSLATOR RAPID STREP A STAT 08/14/2017 10:08 PM ARABIC TRANSLATOR INFLUENZA A & B STAT 08/14/2017 10:08 PM ARABIC TRANSLATOR documented in this encounter Results * STREP A, DNA (08/14/2017 10:08 PM ARABIC TRANSLATOR) STREP A MOLECULAR NEGATIVE NEGATIVE 08/14/2017 11:27 PM ARABIC TRANSLATOR [facility] Comment: NOTE: A negative result is highly sensitivefor S. pyogenes in throat specimens.This test does not distinguish between viableand non-viable organisms.If the result is negative and symptomspersist, additional testing is recommended torule out other pathogens. 08/14/2017 10:0 8 PM ARABIC TRANSLATOR us Generic Conversion Md HURT MICROBIOLOGY - GENERAL ORDERABLES Final Result Performing Organization Address [facility] Co de Phone Number [facility] [address] [place] [address], [place] [phone] * RAPID STREP A (08/14/2017 10:08 PM ARABIC TRANSLATOR) RAPID STREP TEST NEGATIVE NEGATIVE 08/14/2017 10:23 PM ARABIC TRANSLATOR [facility] SERUM OR PLASMA SPECIMEN / Unknown 08/14/2017 10:08 PM ARABIC TRANSLATOR 08/14/2017 10:10 PM ARABIC TRANSLATOR Comment:ACELLULAR BLOOD (SER UM OR PLASMA) SPECIMEN us Generic Conversion Md HURT MICROBIOLOGY - GENERAL ORDERABLES Final Result Performing Organization Address [facility] [place]/[facility] Co de Phone Number [facility] [address] [place] [address], [place] [phone] * (ABNORMAL) INFLUENZA A & B (08/14/2017 10:08 PM ARABIC TRANSLATOR) SPECIMEN TYPE NASOPHARYNX 08/14/2017 10:10 PM ARABIC TRANSLATOR [facility] INFLUENZA A NEGATIVE NEGATIVE 08/14/2017 10:35 PM ARABIC TRANSLATOR [facility] INFLUENZA B POSITIVE(A) NEGATIVE 08/14/2017 10:35 PM ARABIC TRANSLATOR [facility] 08/14/2017 10:0 8 PM ARABIC TRANSLATOR 08/14/2017 10:10 PM ARABIC TRANSLATOR us Generic Conversion Md HURT MICROBIOLOGY - GENERAL ORDERABLES Final Result Performing Organization Address City/[facility] Co de Phone Number [facility] [address] [place] [phone], documented in this encounter Visit Diagnoses Diagnosis Influenza due to unidentified influenza virus with other respiratory manifestations documented in this encounter
--- OUTSIDE RECORDS SUMMARY | 2024-06-10 08:35 | XMS_ITS | Encounter Summary ---
Author Organization [facility] Address [facility] [facility] [place] [address] [place] [address] Care Team Providers Care Traffic Analysis Technician Name Role Phone Unavailable Primary Care Provider Unavailabl e Encounter Details Date Type Department Care Team (Late st Contact Info) Description 10/29/2016 Abstract [facility] [address] [place] [address] Rona Kirk MD [address] [place] [address] Social History Tobacco Use Types [...]
--- OUTSIDE RECORDS SUMMARY | 2024-06-10 08:35 | XMS_ITS | Encounter Summary ---
Author Organization [facility] Address [address] [place] [address]. [place], [place] [address] [place] [address] Care Team Providers Care Quality Improvement Engineer Name Role Phone Unavailable Primary Care Provider Unavailabl e Encounter Details Date Type Department Care Team (Late st Contact Info) Description 04/19/2005 Abstract [facility] Emergency Room [address] [place] [address] Social History Tobacco Use Types [...]
--- OUTSIDE RECORDS SUMMARY | 2024-06-10 08:35 | XMS_ITS | Encounter Summary ---
Author Organization [facility] Address [address] [place] [address]. [place] [address] [place] [address] Care Team Providers Care Highway Administrative Engineer Name Role Phone Rona Kirk MD Primary Care Provider [phone] Encounter Details Date Type Department Care Team (Late st Contact Info) Description 05/26/2021 Abstract [facility] Emergency Services [address] [facility] [place], [place] [id number] Michelet Koo MD [address] [place] [address] Social History Tobacco Use Types Packs/Day Years [...] Procedure Name Priority Date/Time Associated Diagnosis Comments CBC W/AUTO DIFF Routine 05/26/2021 9:25 PM INSPECTOR [place]F BALL COMPREHENSIVE METABOLIC PANEL Routine 05/26/2021 9:25 PM INSPECTOR GOLF BALL D-DIMER, QUANTITATIVE Routine 05/26/2021 9:25 PM INSPECTOR GOLF BALL TROPONIN, QUANT Routine 05/26/2021 9:25 PM INSPECTOR GOLF BALL documented in this encounter Results * (ABNORMAL) COMPREHENSIVE METABOLIC PANEL (05/26/2021 9:25 PM INSPECTOR GOLF BALL) GLUCOSE 87 70 - 99 mg/dL [facility] SODIUM S/P/B 141 136 - 145 mmol/L [facility] POTASSIUM S/P/B 3.4(L) 3.5 - 5.1 mmol/L [facility] CHLORIDE S/P/B 103 100 - 108 mmol/L [facility] CO2 26 21 - 32 mmol/L [facility] BUN 16 7 - 18 mg/dL [facility] CREATININE S/P/B 0.8 0.5 - 1.2 mg/dL [facility] TOTAL PROTEIN S/P/B 7.9 6.4 - 8.2 g/dL [facility] CALCIUM S/P/B 9.3 8.5 - 10.1 mg/dL [facility] BILIRUBIN TOTAL S/P/B 0.3 0.2 - 1.2 mg/dL [facility] ALKALINE PHOSPHATASE S/P/B 87 50 - 136 U/L [facility] ALBUMIN S/P/B 4.3 3.4 - 5.0 g/dL [facility] AST 14(L) 15 - 37 U/L [facility] ALT 20 14 - 55 U/L [facility] PATIENT'S AGE 22 YEARS [facility] EGFR NON-AFR. AMER. 95 ml/min [facility] EGFR AFR. AMER. 115 ml/min [facility] ANION GAP 15 8 - 20 [facility] Comment: ?GFR INTERPRETATION ??According to the National Kidney Foundation, normal results range from 90 to 120 mL/min/1.73 m2. Older people will have lower than normal GFR levels, because GFR decreases with age. Normal value ranges may vary slightly among different laboratories 05/26/2021 9:25 PM INSPECTOR GOLF BALL 05/26/2021 9:31 PM INSPECTOR GOLF BALL us Michelet Koo MD LABORATORY Final Result Performing Organization Address [facility] Co de Phone Number [address] [address] * TROPONIN, QUANT (05/26/2021 9:25 PM INSPECTOR GOLF BALL) Pathologist [facility] TROPONIN I HIGH SENSITIVITY 4 0 - 54 ng/L [facility] Comment: ?CONDITIONS RESULTING IN MYOCARDIAL CELL DAMAGE CAN ?POTENTIALLY INCREASE LEVELS ABOVE THE EXPECTED RANGE. ?HIGH DOSES OF BIOTIN MAY INTERFERE WITH THIS TEST RESULT. ?CORRELATION TO CLINICAL PRESENTATION RECOMMENDED 05/26/2021 9:25 PM INSPECTOR GOLF BALL 05/26/2021 9:31 PM INSPECTOR GOLF BALL Michelet Koo MD LABORATORY Final Result Performing Organization Address [facility] de Phone Number [address] [address] * D-DIMER, QUANTITATIVE (05/26/2021 9:25 PM INSPECTOR GOLF BALL) [facility] D-DIMER 315 215 - 500 ng/mL FEU [facility] Comment: THE CUTOFF FOR EXCLUSION OF DVT OR PE IS <500ng/ml FEU. NOTE: RESULTS OF THIS TEST SHOULD ALWAYS BE INTERPRETED IN CONJUNCTION WITH THE PATIENT'S MEDICAL HISTORY, CLINICAL PRESENTATION, AND OTHER FINDINGS. CLINICAL DIAGNOSIS SHOULD NOT BE BASED ON THE RESULT OF D-DIMER ALONE. 05/26/2021 9:25 PM INSPECTOR GOLF BALL 05/26/2021 9:31 PM INSPECTOR GOLF BALL Michelet Koo MD LABORATORY Final Result Performing Organization Address [facility] Co de Phone Number [address] [address] * CBC W/AUTO DIFF (05/26/2021 9:25 PM INSPECTOR GOLF BALL) [facility] WBC 7.7 4.5 - 11.0 cmm [facility] RBC 4.5 4.0 - 5.2 M/cumm [facility] HGB 13.8 12.0 - 16.0 g/dL [facility] HCT 41.1 36.0 - 46.0 % [facility] MCV 92.4 80.0 - 100 fL [facility] MCH 31.0 26.0 - 34.0 pg [facility] MCHC 33.6 31.0 - 37.0 g/dL [facility] RDW 12.5 11.6 - 14.8 % [facility] PLT 298 140 - 415 cmm [facility] MPV 9 7 - 12 fl [facility] ABS. NEUTROPHILS 4.55 1.50 - 8.00 x10^3 [facility] ABS. LYMPHOCYTES 2.42 0.21 - 5.42 x10^3 [facility] ABS. MONOCYTES 0.57 0.04 - 1.37 x10^3 [facility] ABS. EOSINOPHILS 0.07 0.00 - 0.68 x10^3 [facility] ABS. BASOPHILS 0.03 0.00 - 0.08 x10^3 [facility] ABS. IMMATURE GRANULOCYTES 0.01 0.00 - 0.06 x10^3 [facility] NEUTROPHILS % 59.5 40.0 - 74.0 % [facility] LYMPHOCYTES % 31.6 14.0 - 46.0 % [facility] MONOCYTES % 7.5 4.0 - 13.0 % [facility] EOSINOPHILS % 0.9 0.0 - 7.0 % [facility] BASOPHILS % 0.4 0.0 - 3.0 % [facility] IMMATURE GRANS % 0.10 0.00 - 0.43 % [facility] MANUAL DIFFERENTIAL NOT INDICATED [facility] WBC MORPHOLOGY NOT INDICATED H [facility] RBC MORPHOLOGY NOT INDICATED H [facility] PLT MORPH. NOT INDICATED [facility] 05/26/2021 9:25 PM INSPECTOR GOLF BALL 05/26/2021 9:31 PM INSPECTOR GOLF BALL us Michelet Koo MD LABORATORY Final Result [facility] [address] [place] [address] documented in this encounter Visit Diagnoses Not on filedocumented in this encounter Care Teams Highway Administrative Engineer Relationship Specialty Start Date End Date Rona Kirk MD [address] [place] [address] PCP - General PEDIATRICS 04/07/19 documented as of this encounter
--- OUTSIDE RECORDS SUMMARY | 2024-06-10 08:44 | XMS_ITS | Encounter Summary ---
Author Organization [facility] Address [address] [place] [address] Care Team Providers Care Ehs Specialist Name Role Phone Amber Wray REHABILITATOR Primary Care Provider + Amber Wray REHABILITATOR Unavailable [phone] Encounter Details Date Type Department Care Team (Late st Contact Info) Description 07/01/2020 Telephone [facility] Cardiology [address] [place] [address] Montserrat Rodriguez NP [address] [facility] [address] [place] [address] Social History Tobacco Use Types Packs/Day Years Used Date Smoking Tobacco: Never Assessed Comments Unknown Sex and Gender Information Value Date Recorded Sex Assigned at Not on file Legal Sex Female 1:19 PM SALES FLOOR TEAM LEADER Gender Identity Not on file Sexual Orientation Not on file documented as of this encounter Miscellaneous Notes * Telephone Encounter - Lo Finch MA - 07/01/2020 3:46 PM CST Report faxed to Amber Wray's office. Patient is aware. S FLOOR TEAM LEADER * Telephone Encounter - Elke العلي - 07/01/2020 2:32 PM CST Pt called to request a copy of her 24 hr holter monitor test result done on 06/20/[address]Danielle Wray office. Pt can not provide Dr. Wray fax number. S FLOOR TEAM LEADER documented in this encounter Plan of Treatment Not on file documented as of this encounter Visit Diagnoses Not on filedocumented in this encounter Care Teams Ehs Specialist Relationship Specialty Start Date End Date Amber Wray NP [address] [facility] [place] [address] PCP - General Nurse Practitioner 06/20/20 Amber Wray NP [address] [facility] [place] [address] Nurse Practitioner 06/20/20 documented as of this encounter
--- OUTSIDE RECORDS SUMMARY | 2024-06-10 08:44 | XMS_ITS | Encounter Summary ---
Author Organization [facility] Address [address] [place] [address] Care Team Providers Care Meat Smoker Name Role Phone Amber Wray DELTA SYSTEM FREIGHT CAR CLEANER Primary Care Provider + Amber Wray DELTA SYSTEM FREIGHT CAR CLEANER Unavailable [phone] Encounter Details Date Type Department Care Team (Late st Contact Info) Description 06/20/2020 Orders Only [facility] Cardiology [address] [address] [place] [phone] Provider, MD Rosalinda [address] [place] [address] Social History Tobacco Use Types Packs/Day Years Used Date Smoking Tobacco: Never Assessed Comments Unknown Sex and Gender Information Value Date Recorded Sex Assigned at Not on file Legal Sex Female 1:19 PM STUDIO PRODUCER Gender Identity Not on file Sexual Orientation Not on file documented as of this encounter Plan of Treatment Not on file documented as of this encounter Procedures Procedure Name Priority Date/Time Associated Diagnosis Comments CARDIOLOGY DOCUMENT SCAN Routine 06/20/2020 documented in this encounter Results * SCAN - CARDIOLOGY (06/20/2020) Anatomical Region Laterality Modality Other Historical Provider [facility] ZENON WRIGHT Final Result documented in this encounter Visit Diagnoses Not on filedocumented in this encounter Care Teams Meat Smoker Relationship Specialty Start Date End Date Amber Wray NP [address] [facility] [place] [address] PCP - General Nurse Practitioner 06/20/20 Amber Wray NP [address] [place] [address] Nurse Practitioner 06/20/20 documented as of this encounter
--- OUTSIDE RECORDS SUMMARY | 2024-06-10 08:44 | XMS_ITS | Clinical Summary ---
Author Organization [facility] [address] [address] Address [address] [place] [address] Care Team Providers Care Cycle Manager Name Role Phone Amber Wray SURGERY AIDE Primary Care Provider + Amber Wray SURGERY AIDE Unavailable [phone] Social History Tobacco Use Types Packs/Day Years Used Date Smoking Tobacco: Never Assessed Personal Safety Answer Date Recorded Getting School Help Needed Not on file 08/21 Comments Unknown Sex and Gender Information Value Date Recorded Sex Assigned at Not on file Legal Sex Female 1:19 PM PHYSICIAN IN PRIVATE PRACTICE Gender Identity Not on file Sexual Orientation Not on file Plan of Treatment Not on file Insurance [facility] IDPA [facility] Care Teams Cycle Manager Relationship Specialty Start Date End Date Amber Wray NP Tessy [facility] [place] [address] PCP - General Nurse Practitioner 06/20/20 Amber Wray NP Tessy [facility] [place] [address] Nurse Practitioner 06/20/20
--- OUTSIDE RECORDS SUMMARY | 2024-06-10 08:44 | XMS_ITS | Referral Summary ---
Author Organization [facility] [address] [address] Address [address] [place] [address] Care Team Providers Care Industrial Health And Safety Professor Name Role Phone Amber Wray HEATING MECHANIC Primary Care Provider + Amber Wray HEATING MECHANIC Unavailable [phone] Social History Tobacco Use Types Packs/Day Years Used Date Smoking Tobacco: Never Assessed Personal Safety Answer Date Recorded Getting School Help Needed Not on file 08/21 Comments Unknown Sex and Gender Information Value Date Recorded Sex Assigned at Not on file Legal Sex Female 1:19 PM SPECIAL ORDER JEWELER Gender Identity Not on file Sexual Orientation Not on file Plan of Treatment Not on file Insurance [facility] [place] [address] IDPA [facility] Care Teams Industrial Health And Safety Professor Relationship Specialty Start Date End Date Amber Wray NP Tessy [facility] [place] [address] PCP - General Nurse Practitioner 06/20/20 Amber Wray NP Tess[facility] [place] [address] Nurse Practitioner 06/20/20
--- OUTSIDE RECORDS SUMMARY | 2024-06-10 08:44 | XMS_ITS | Encounter Summary ---
Author Organization [facility] Address [address] [place] [address] Care Team Providers Care Paraeducator Name Role Phone Amber Wray CORPORATE DEVELOPMENT ANALYST Primary Care Provider + Amber Wray CORPORATE DEVELOPMENT ANALYST Unavailable [phone] Reason for Visit * Cardiology (Routine) - Closed Specialty Diagnoses / Procedures Referred By Marcio martinez Referred To Contact Diagnoses Palpitations Procedures 24 HR Holter Monitor OR EXT ECG RECORD CONTIN 48 HR, SCAN ANALYSIS W REPORT Amber Wray, NIECY [address] [place] [address] Phone: tel: fax: [facility] Referral ID Status Reason Start Date Expiration Date Visits Re quested Visits Authorized [id number] Closed 06/20/2020 07/20/2021 1 1 Encounter Details Date Type Department Care Team (Late st Contact Info) Description 06/24/2020 10:30 AM [facility] [employer] Ancillary Procedure [facility] Cardiology [address] [place] [address] Palpitations Social History Tobacco Use Types Packs/Day Years Used Date Smoking Tobacco: Never Assessed Comments Unknown Sex and Gender Information Value Date Recorded Sex Assigned at Not on file Legal Sex Female 1:19 PM [facility] [employer] Gender Identity Not on file Sexual Orientation Not on file documented as of this encounter Procedure Notes * Lico Matamoros MD - 06/24/2020 12:00 AM CST 24-HOUR HOLTER MONITOR Indications Palpitations. Ordering Physician Dr. Gordon Estes. Start Date 06/24/2020. Recording Time 24 hours and 19 minutes with an analysis time of 24 hours and 16 minutes. Findings Underlying normal sinus rhythm/sinus tachycardia with heart rate variability between 58 and 164 beats per minute with an average heart rate of 94 beats per minute. There was no atrial fibrillation, SVT, significant bradycardia or ventricular tachycardia or ventricular ectopy. Two diary events were submitted with symptoms of anxiety, chest pain correlating to sinus tachycardia with heart rate of 113 beats per minute, and another episode of chest pain, fluttering, correlating to sinus tachycardia with a heart rate of 100 beats per minute. Conclusion 1. Underlying normal sinus rhythm/sinus tachycardia with elevated average heart rate of 94 beats per minute. 2. No arrhythmia. 3. Symptom events correlate to sinus tachycardia. Job ID/VF Job ID: [id number] [employer] documented in this encounter Plan of Treatment Pending Results Name Type Priority Associated Diagnoses Date /Time 24 HR Holter Monitor Cardiac Services Routine Palpitations 06/24/2020 10:57 AM [employer] [employer] documented as of this encounter Visit Diagnoses Diagnosis Palpitations documented in this encounter Care Teams Paraeducator Relationship Specialty Start Date End Date Amber Wray NP [address] [place] [address] PCP - General Nurse Practitioner 06/20/20 Amber Wray NP [address] [place] [address] Nurse Practitioner 06/20/20 documented as of this encounter
== END 2024-06-03 10:29 | disposition home or self-care (01) ==
PROVIDERS: Emergency Provider Emergency Medicine; PCP Nurse Practitioner Family
DX: O23.41 Unspecified infection of urinary tract in pregnancy, first trimester (principal); N39.0 Urinary tract infection, site not specified; Z3A.11 11 weeks gestation of pregnancy
CPT/HCPCS: 36415; 76801; 80053; 81001; 81025; 84702; 85025; 85461; 85610; 85730; 86850; 86900; 86901; 99284; A9270

== ENCOUNTER 2024-10-19 10:07 | Outpatient (RCR) | payer OTHER, SELFPAY | END 2025-01-17 23:59 | disposition home or self-care (01) | LOC: ANHLAB 10:07 | PROVIDERS: PCP Nurse Practitioner Family; Visit Provider Obstetrics & Gynecology | DX: Z36.89 Encounter for other specified antenatal screening (principal) | CPT/HCPCS: 36415; 85461; 86850; 86900; 86901; 90384; J2790 ==

== ENCOUNTER 2024-10-21 19:46 | Observation (INO) | payer OTHER, SELFPAY ==
--- OUTSIDE RECORDS SUMMARY | 2024-10-21 19:52 | XMS_ITS | Data Portability ---
Author Organization [place] [facility], Main Office Address [address] [place] [address] Assessment Encounter Date Assessment Date Assessment LastModified [...] ED if any concerns. F/u as directed. [email or web address] Not available 03/30/2023 09:38:53 Plan of Treatment Reminders Order Date Submit Date Provider Last Modified By Organization Details Last Modified Time Details Appointments None recorded. Lab lipid panel, serum 2022 023 [email or web address] [facility], [address], [place], [address], 3 08:12:53 TSH, serum or plasma 2022 023 [email or web address] [facility], [address], [place], [address], 3 08:12:53 beta-HCG, quantitativ e, serum or plasma 2022 023 [email or web address] [facility], [address] [place], [address], 3 08:12:53 HbA1c (hemoglobin A1c), blood 2022 023 [email or web address] [facility], [address] [place], [address], 3 08:12:53 CMP, serum or plasma [facility]23 [facility], [address], [address], [place], [address], 3 08:12:53 CBC w/ auto diff 2022 023 [facility], [address], [address], [place], [address], 3 08:12:52 vitamin B12, serum 2022 023 [facility], [address], [place], [address], 3 08:12:52 iron + TIBC + ferritin, serum 2022 023 [facility], [address], [address], [place], [address], 3 08:12:52 rapid strep group A, throat 2022 023 [facility], [address] [place] [address], [address], 3 10:35:40 rapid flu (A+B) 2022 023 [facility], [address] [place] [address], [place], [address], 3 10:36:43 Referral None recorded. Procedures None recorded. Surgeries None recorded. Imaging None recorded. Medication Orders Medrol (Arcenio) 4 mg tablets in a dose pack 2023 024 [id number], [address] [facility], [place], [place], [id number], 4 11:59:35 albuterol sulfate HFA 90 mcg/actuati on aerosol inhaler 2023 024 [facility] #88905, [address] [facility], [place], [place], [id number], 4 11:59:37 azithromyci n 250 mg tablet 2022 023 [facility] #[id number], [address] [facility], [place], [place], [id number], 3 17:45:32 Patient TargetsNo targets recorded. Patient Instructions Encounter Date Encounter Id Patient Instructions Last Modified By Organization Details Last Modified Time 05/18/2023 [id number] Fu with new provider prn. 05/18/23 pt aware of Diablo departure. Not available 05/18/2023 18:07:44 Reason for Referral None Reported. Results Created Date Observation Date Name Description Value Unit Range Abnormal Flag Note LastModifiedBy Organization Detail LastModifiedTime 12/27/19 22 12/26/2021 MONICA TIN ferritin 8 NG/mL 6.24-1 37 Not Available [facility] (Lab) [address] [place], [address], 12/26/2021 20:09:34 12/27/19 22 12/26/2021 IRON/ TIBC PANEL total iron binding capacity 461 mcg/d L 265-47 5 Not Available [facility] (Lab) [address] [place], [address], 12/26/2021 19:52:48 12/27/19 22 12/26/2021 IRON/ TIBC PANEL % transferrin saturation 23 % 20-55 Not Available [facility] (Lab) [address] [place], [address], 12/26/2021 19:52:48 12/27/19 22 12/26/2021 IRON/ TIBC PANEL unsaturated iron bind capacity 356 mcg/d L 126-38 2 Not Available [facility] (Lab) [address] [place], [address], 12/26/2021 19:52:48 12/27/1912/26/2021 IRON/ TIBC PANEL iron 105 mcg/d L 42-175 Not Available [facility] (Lab) [address] [place], [address], 12/26/2021 19:52:48 12/27/19 22 12/26/2021 CBC W/O DIFFE RENTI AL white blood cells 7.9 x10'3 /uL 4.2-10 .8 Not Available [facility] (Lab) [address] [place], [address], 12/26/2021 19:12:55 12/27/19 22 12/26/2021 CBC W/O DIFFE RENTI AL red blood cells 4.06 x10'6 /uL 3.80-5 .20 Not Available [facility] (Lab) [address] [place], [address], 12/26/2021 19:12:55 12/27/1912/26/2021 CBC W/O DIFFE RENTI AL hemoglobin 12.7 g/dL 12.0-1 5.6 Not Available [facility] (Lab) [address] [place], [address], 12/26/2021 19:12:55 12/27/19 22 12/26/2021 CBC W/O DIFFE RENTI AL hematocrit 38.3 % 35.7-4 5.7 Not Available [facility] (Lab) [address] [place], [address], 12/26/2021 19:12:55 12/27/19 22 12/26/2021 CBC W/O DIFFE RENTI AL mean red cell volume 94.3 fL 82.0-9 9.0 Not Available [facility] (Lab) [address] [place], [address], 12/26/2021 19:12:55 12/27/19 22 12/26/2021 CBC W/O DIFFE RENTI AL mean red cell hemoglobin 31.3 pg 27.0-3 3.0 Not Available [facility] (Lab) [address] [place], [address], 12/26/2021 19:12:55 12/27/19 22 12/26/2021 CBC W/O DIFFE RENTI AL mean RBC HGB concentratio n 33.2 g/dL 31.0-3 6.0 Not Available [facility] (Lab) [address] [place], [address], 12/26/2021 19:12:55 12/27/19 22 12/26/2021 CBC W/O DIFFE RENTI AL red cell distribution width 14.6 % 11.8-1 5.5 Not Available [facility] (Lab) [address] [place], [address], 12/26/2021 19:12:55 12/27/19 22 12/26/2021 CBC W/O DIFFE RENTI AL platelets 278 x10'3 /uL 150-40 0 Not Available [facility] (Lab) [address] [place], [address], 12/26/2021 19:12:55 12/27/19 22 12/26/2021 CBC W/O DIFFE RENTI AL mean platelet volume 10.4 fL 9.0-12 .4 Not Available [facility] (Lab) [address] [place], [address], 12/26/2021 19:12:55 03/30/20 23 03/30/2023 rapid flu (A+B) Flu A negati ve Not Available [facility], [address], 03/30/2023 09:32:06 03/30/20 23 03/30/2023 rapid flu (A+B) Flu B negati ve Not Available [address], [place], [address], 03/30/2023 09:32:06 03/30/20 23 03/30/2023 rapid strep group A, throa t STREP A negati ve Not Available [address] [facility], [place], [address], 03/30/2023 09:32:03 10/28/19 22 10/27/2021 US, obste tric No observ ation record ed. [id number] [facility], [place], [address], 08/05/2022 05:06:32 10/28/19 22 10/27/2021 XR, chest No observ ation record ed. [id number] [place] [address] [address], [place], [address], 08/05/2022 05:06:32 06/22/19 23 06/21/2022 CT, abdom en + pelvi s, w/ contr ast No observ ation record ed. [id number] [place] [address] [address] [facility], [place], [address], 08/05/2022 05:06:32 Result Notes None recorded. Problems Name Problem SNOMED Code Status Onset Date Resolution Date Notes Provider Name and Address Organization Details Recorded Time Sore throat 044088045 Active 2022 Seth Wolf MD [address], [facility] [address], [place], [address] , Attributor [facility] 09:32:01 Pharyngitis 381305764 Active 2022 Seth Wolf MD [address], [address], [place], [address] , Attributor [facility] 3 09:45:13 Fatigue 63715293 Active 2022 Seth Wolf MD [address], [address], [place], [address] , [place] [facility] 3 09:50:24 Nausea 030543607 Active 2022 Amber Wray NP [address], [address], [place], [address] , [place] [facility] 3 15:00:28 Dizziness 264134517 Active 2022 Amber Wray NP [address], [address], [place], [address] , [place] [facility] 3 15:00:31 Bronchitis 13474777 Active 2023 NELL Aguirre [address], [address], [place], [address] , [place] [facility] 4 11:52:48 Bronchiectasi s 93965206 Active 2023 NELL Aguirre [address], [address], [place], [address] , [place] [facility] 4 16:06:35 Chronic obstructive pulmonary disease 95447958 Active 2023 NELL Aguirre [address], [address], [place], [address] , [place] [facility] 4 16:06:35 Deep venous thrombosis 270175180 Active 2023 NELL Aguirre [address], [address], [place], [address] , [place] [facility] 4 16:06:35 Edema of lower extremity 116252918 Active 2023 NELL Aguirre [address], [address], [place], [address] , [place] [facility] 4 16:06:35 Dyspnea 606094558 Active 2023 Judy FerreiraNELL villela [address], [address], [place], [address] , [place] [facility] 4 16:06:35 Acute bronchitis 39524745 Active 2023 Judy GarzaNELL hastings [address], [address], [place], [address] , [place] [facility] 4 16:07:05 Hyperemesis gravidarum 37598031 Active 2021 Not Available [facility] 3 04:52:35 Tachycardia 0846104 Active 2019 Not Available [facility] 3 04:52:35 Iron deficiency 01483951 Active 2019 Not Available [facility] 3 04:52:35 Vasovagal syncope 006126074 Active 2019 Not Available [facility] 3 04:52:35 Anxiety 27104777 Active 2019 Not Available [facility] 3 04:52:35 Upper respiratory infection 67097027 Active 2019 Not Available [facility] 3 04:52:35 Posterior rhinorrhea 56686320 Active 2019 Not Available [facility] 3 04:52:35 41787256 Active 2021 Not Available [facility] 3 04:52:35 Iron deficiency anemia 18676077 Active 2019 Not Available [facility] 3 04:52:35 Problem Notes None recorded. Procedures Surgical History Date Name Laterality Status Provider Name and Address Organization Details Recorded Time 11/05/2021 Date of Last Pap Smear completed Amber Kelley RN [facility] 05/18/2023 16:33:12 Imaging Results Imaging Date Name Status LastModified by [facility] Details LastModified Time 10/27/2021 US, obstetric completed [id number], [place], [address], 08/05/2022 05:06:32 10/27/2021 XR, chest completed [id number], [place], [address], 08/05/2022 05:06:32 06/21/2022 CT, abdomen + pelvis, w/ contrast completed [id number] [facility] [address], [place], [address], 08/05/2022 05:06:32 Procedure Notes None recorded. Medical [...] % 96 % 101.99 /min 98.1 [degF] 41700.7 5 g 102 mm[Hg] 68 mm[Hg] Not Available [facility] 3 04:48:35 Date Recorded Body height Provider Name an d Address Organization Details Last Updated DateTime 11/11/2021 160.02 cm Not Available [facility] 3 04:48:36 Date Recorded Body height Body mass index (BMI) Body weight Body temperature Heart rate Respiratory rate Oxygen saturation Oxygen saturation in Arterial blood by Pulse oximetry Systolic blood pressure Diastolic blood pressure Provider Name and Address Organization Details Last Updated DateTime 3 165.1 cm 23.3 kg/m2 90213.9 3 g 98.1 [degF] 80 /min 16 /min 99 % 99 % 110 mm[Hg] 74 mm[Hg] Camron PIKE [facility] 3 09:37:36 Date Recorded Body height Body mass index (BMI) Body weight Body temperature Heart rate Oxygen saturation Oxygen saturation in Arterial blood by Pulse oximetry Respiratory rate Systolic blood pressure Diastolic blood pressure Provider Name and Address Organization Details Last Updated DateTime 3 165.1 cm 23.4 kg/m2 13521.0 8 g 96.8 [degF] 91 /min 98 % 98 % 16 /min 114 mm[Hg] 60 mm[Hg] Amber Kelley RN [facility] [employer] [facility] 3 16:29:47 Date Recorded Body height Body mass index (BMI) Body weight Body temperature Heart rate Respiratory rate Heart rate Oxygen saturation Oxygen saturation in Arterial blood by Pulse oximetry Systolic blood pressure Diastolic blood pressure Provider Name and Address Organization Details Last Updated DateTime 4 165.1 cm 23.7 kg/m2 13768.1 7 g 96.9 [degF] 122 /min 24 /min 122 /min 97 % 97 % 110 mm[Hg] 72 mm[Hg] Amber Kelley RN [facility] [employer] [facility] 4 11:43:20 Social History Question Answer Notes LastModified by Organizat ion Details LastModified Time Tobacco Smoking Status Never Smoker Not Available [facility] 08/05/2022 04:41:30 Do You Have An Advance Directive? No Information not available 05/18/2023 What Is Your Level Of Caffeine Consumption? Occasional [id number] Information not available 08/05/2022 How Much Tobacco Do You Chew? None [id number] Information not available 08/05/2022 What Is Your Code Status? Full Code Information not available 05/18/2023 In The 14 Days Before Symptom Onset, Have You Had Close Contact With A Laboratory-confir med COVID-19 While That Case Was Ill? No [id number] Information not available 08/05/2022 In The 14 Days Before Symptom Onset, Have You Had Close Contact With A Person Who Is Under Investigation For COVID-19 While That Person Was Ill? No [id number] 0316 Information not available 08/05/2022 What Type Of Diet Are You Following? REGULAR [id number] 4622 Information not available 08/05/2022 Which Illicit Or Recreational Drugs Have You Used? None [id number].[id number] 3974 Information not available 08/05/2022 How Many Days [...] To Your Family Or Social Situation? No MIGRATION.[id number] 3496 Information not available 08/05/2022 Do You Use Insect Repellent Routinely? Yes MIGRATION.115387 7872 Information not available 08/05/2022 Do You Have A Medical Power Of Internal Medicine Specialist? No Information not available 05/18/2023 How Many Children Do You Have? 1 Information not available 05/18/2023 Have You Ever Been Counseled For Unhealthy Alcohol Use? No [id number] 1091 Information not available 08/05/2022 Do You Have Any Pets? Yes [id number].[id number] 3292 Information not available 08/05/2022 What Is Your Relationship Status? Single Engaged Information not available 05/18/2023 Do You Use Your Seat Belt Or Car Seat Routinely? Yes [id number].[id number] 3899 Information not available 08/05/2022 Are You Sexually Active? Yes Information not available 05/18/2023 Do You Have Smoke And Carbon Monoxide Detectors In Your Home? Yes MIGRATION.222301 9569 Information not available 08/05/2022 Are There Any Smokers In Your House? No MIGRATION.414355 6279 Information not available 08/05/2022 How Much Tobacco Do You Smoke? No MIGRATION.359552 2268 Information not available 08/05/2022 Do You Participate In Social Media? Yes MIGRATION.215651 8875 Information not available 08/05/2022 What Types Of Sporting Activities Do You Participate In? Walk, Jog Information not available 05/18/2023 Do You Use Sunscreen Routinely? Yes MIGRATION.450167 5247 Information not available 08/05/2022 Has Tobacco Cessation Counseling Been Provided? No MIGRATION.426790 5574 Information not available 08/05/2022 Have You Recently Traveled Abroad? No MIGRATION.056726 9778 Information not available 08/05/2022 Do You Have Any Dietary Restrictions? No MIGRATION.587740 9751 Information not available 08/05/2022 Sex: Female Functional Status Question Answer Note LastModified by Organizat [facility] Details LastModified Time Do you use any illicit or recreational drugs? No MIGRATION.[id number] 9575 Information not available 08/05/2022 What is your level of alcohol consumption? Occasional MIGRATION.382719 7115 Information not available 08/05/2022 Do you or have you ever used smokeless tobacco? Never used smokeless tobacco MIGRATION.151351 3101 Information not available 08/05/2022 Are you currently employed? 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 Never used electronic cigarettes MIGRATION.085485 1275 Information not available 08/05/2022 What is your exercise level? Moderate MIGRATION.187969 2138 Information not available 08/05/2022 Mental Status Question Answer Note LastModified by Organizat [facility] Details LastModified Time Do you feel stressed (tense, restless, nervous, or anxious, or unable to sleep at night)? [id number] MIGRATION.[id number] 6 Information not available 08/05/2022 Family History Relationship Description Onset Age of this Age Resolved Age Notes LastModified by Organization Details LastModified Time Mother High glucose level in blood [id number] Not available 08/05/2022 04:43:19 Mother Diabetes mellitus MIGRATION.803 [id number] Not available 08/05/2022 04:43:19 Mother Hypercholest erolemia MIGRATION.413 [id number] Not available 08/05/2022 04:43:19 Father Hypertensive disorder MIGRATION.115 [id number] Not available 08/05/2022 04:43:19 Father Diabetes mellitus MIGRATION.198 [id number] Not available 08/05/2022 04:43:19 Father Chronic obstructive pulmonary disease MIGRATION.713 [id number] Not available 08/05/2022 04:43:19 Medical History No [...] (COVID-19) vaccine, UNSPECIFIED 1 completed Not Available [facility] 08/05/2022 05:05:48 SARS-COV-2 (COVID-19) vaccine, UNSPECIFIED 1 completed Not Available [facility] 08/05/2022 05:05:49 Influenza, split virus, quadrivalent, PF 0 completed Not Available [facility] 08/05/2022 05:05:49 Tdap 0 completed Not Available [facility] 08/05/2022 05:05:49 Past Encounters Encounter ID Performer Location Encounter Start Date Encounter Closed Date Diagnosis/Indication Diagnosis SNOMED-CT Code Diagnosis ICD10 Code Diagnosis Note [id number] Seth Wolf MD [id number] [place] [address] 09/05/2020 00:00:00 09/05/2020 16:33:11 [id number] Seth Wolf MD [address] [address] 10/02/2020 00:00:00 [id number]|2024-10-21 19:53:00|2024-10-21 19:52:00|XMS_ITS|BKG DAEMON|External Medical Summaries|[id number]|" Clinical Summary Created on: October 21, 2024 Debi Addison : 2000 Sex: Female Author Organization [facility] Address [address] [place] [address] Care Team Providers Care Living Advisor Name Role Phone Gaudencio Davis MD Unavailable [phone] Seth Wolf MD Primary Care Provider [phone] Allergies No known active allergies Medications vitamin ( PLUS) 27-1 MG tablet Take 1 tablet by mouth daily. Active Encounters Date Type Department Care Team Description 08/19/2024 3:37 AM CDT - 08/19/2024 4:13 AM CDT Emergency [facility] Emergency Room [id number] [place] [address] Fam Castro MD Earache Discharge Disposition: Home or Self Care (Routine Discharge) 08/19/2024 Travel from Last 3 Months Social History Tobacco Use Types Packs/Day Years Used Date Smoking Tobacco: Never Smokeless Tobacco: Never Tobacco Cessation:Counseling Given: Not Answered Alcohol Use Standard Drinks/Week Comments Never 0 (1 standard drink = 0.6 oz pur e alcohol) Estimated Date of Delivery Comme nts Yes 12/20/2024 Sex and Gender Information Value Date Recorded Sex Assigned at Female 08/19/2024 3:56 AM CDT Legal Sex Female 7:46 PM CDT Gender Identity Not on file Sexual Orientation Not on file Last Filed Vital Signs Vital Sign Reading Time Taken Comments Blood Pressure 126/80 08/19/2024 3:40 AM CDT Pulse 94 08/19/2024 3:40 AM CDT Temperature 36.1 C (97 F) 08/19/2024 3:40 AM CDT Respiratory Rate 18 08/19/2024 3:40 AM CDT Oxygen Saturation 100% 08/19/2024 3:40 AM CDT Inhaled Oxygen Concentration - - Weight 69.9 kg (154 lb) 08/19/2024 3:40 AM CDT Height 160 cm (5' 3 ) 08/19/2024 3:40 AM CDT Body Mass Index 27.28 08/19/2024 3:40 AM CDT Plan of Treatment Health Maintenance Due Date Last Done Comments Cervical Cancer Screening Pap Smear (Age 21 to 29) Every 3 Years 1998 Cervical Cancer Screening 1998 Annual Physical 2001 Hepatitis C 2016 Meningococcal B Vaccine (2 of 2 - Trumenba SCDM 2-dose series) 05/08/2017 11/06/2016 COVID-19 Vaccine (3 - season) 2024 10/10/2020, 10/10/2020, 09/19/2020, Additional history exists DTaP, Tdap and Td Vaccines (8 - Td or Tdap) 06/09/2032 06/09/2022, 12/27/2019, 10/28/2009, Additional history exists Hepatitis B Vaccines Completed 06/20/1999, 1998, 1998 Pneumococcal Vaccine: Pediatrics (0 to 5 Years) and At-Risk Patients (6 to 49 Years) Aged Out 03/16/2000 No longer eligible based on patient's age to complete this topic Meningococcal Vaccine Completed 05/20/2015, 010 HPV Vaccines Completed 11/06/2016, 05/07, 05/15/2014 RSV Immunization or 60+ Years (No Doses Required) Completed RSV Immunizations Under 20 Months Aged Out No longer eligible based on patient's age to complete this topic Insurance R Care Teams Living Advisor Relationship Specialty Start Date End Date Seth Wolf MD [address] [place] [address] PCP - General HOSPITALIST 06/13/24 Gaudencio Davis MD [id number] [place] [address] OBGYJuanis 06/13/24 "
--- OUTSIDE RECORDS SUMMARY | 2024-10-21 19:52 | XMS_ITS | Referral Summary ---
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
--- OUTSIDE RECORDS SUMMARY | 2024-10-21 19:52 | XMS_ITS | Clinical Summary ---
Author Organization [facility] [address] [address] [address] [place] [address] Care Team Providers Care Manager Call Center Name Role Phone Amber Wray USED BUILDING [employer] YARD WORKER Primary Care Provider + Amber Wray USED BUILD[employer] YARD WORKER Unavailable [phone] Social History Tobacco Use Types Packs/Day Years Used Date Smoking Tobacco: Never Assessed Personal Safety Answer Date Recorded Getting School Help Needed Not on file 08/21 Comments Unknown Sex and Gender Information Value Date Recorded Sex Assigned at Not on file 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
--- OUTSIDE RECORDS SUMMARY | 2024-10-21 19:53 | XMS_ITS | Clinical Summary ---
Author Organization [facility] Address [address] [place] [address] Care Team Providers Care Publishing Systems Analyst Name Role Phone Rona Kirk MD Primary Care Provider [phone] Source Comments [facility] [employer],non-owned Affiliates and Associated Physician Practices is amultiple site organization consisting of ambulatory clinics and hospital sitesin [place], [place], [place] and [place]. This disclosure is being madepursuant to the Care Everywhere program and may not contain all information available regarding this patient. Last updated 18.[facility] [employer] Allergies No known active allergies Medications * Be aware that medications may not be up to date on this document. Alwaysverify current medications with the patient. No known medications Social History Tobacco Use Types Packs/Day Years Used Date Smoking Tobacco: Never Comments Unknown Sex and Gender Information Value Date Recorded Sex Assigned at Not on file Legal Sex Female 5:41 AM PMO CONSULTANT Gender Identity Not on file Sexual Orientation Not on file Last Filed Vital Signs Vital Sign Reading Time Taken Comments Blood Pressure 118/68 05/18/2016 7:12 PM PMO CONSULTANT Pulse 76 05/18/2016 7:12 PM PMO CONSULTANT Temperature 36.8 C (98.2 F) 05/18/2016 7:12 PM PMO CONSULTANT Respiratory Rate 16 05/18/2016 7:12 PM PMO CONSULTANT Oxygen Saturation - - Inhaled Oxygen Concentration - - Weight 49.4 kg (109 lb) 05/18/2016 7:12 PM PMO CONSULTANT Height 161.3 cm (5' 3.5 ) 05/18/2016 7:12 PM PMO CONSULTANT Body Mass Index 19.01 05/18/2016 7:12 PM PMO CONSULTANT Plan of Treatment Health Maintenance Due Date Last Done Comments HIV SCREENING 2013 HPV VACCINE (1 - 3-dose series) 2013 HEPATITIS C SCREENING 08/29/2016 DTAP/TDAP/TD VACCINES (1 - Tdap) 2017 HEPATITIS B VACCINE (1 of 3 - 19+ 3-dose series) 2017 COVID-19 VACCINE (1 - 2023-2 5 season) 2024 DEPRESSION SCREENING 06/07/2024 INFLUENZA VACCINE (Season Ended) 2025 ZOSTER VACCINE (1 of 2) 2048 HIB VACCINE Aged Out No longer eligi ble based on patient's age to complete this topic MENINGOCOCCAL (Group B) VACC INE SHARED DECISION-MAKING Aged Out No longer eligibl e based on patient's age to complete this topic MENINGOCOCCAL GROUPS A/C/Y/W VACCINE Aged Out No longer eligible b ased on patient's age to complete this topic PNEUMOCOCCAL VACCINE Aged Out No long er eligible based on patient's age to complete this topic Insurance [facility] MEDICAID - OUT OF [facility] Care Teams Publishing Systems Analyst Relationship Specialty Start Date End Date Rona Kirk MD [address] [place] [address] PCP - General Pediatrics 05/18/16
[2024-10-21 20:03] VITALS: BP 123/75; PULSE 106
[2024-10-21] MEDS: RHO(D) IMMUNE GLOBULIN 300 MCG/2 ML SYRINGE IM (20:09)
[2024-10-21 20:13] VITALS: BMI 28.3
--- NOTE | 2024-10-21 20:13 | OBADM ---
This patient, Debi Addison, admitted to the OB room OB Post 117 for observation. Patient/family oriented to hospital policies and general routines including ID bracelet, bed and alarms, visiting hours, pain management, procedures, bathroom and other care routines, personal items, smoking policy, room service/diet, and visiting hours. Patient/Family are encouraged to report perceived risks to care and to ask questions if they do not understand what they are told or what they should do.
[2024-10-21 20:15] VITALS: BP 116/71; PULSE 108
[2024-10-21 20:30] VITALS: BP 117/71; PULSE 111
[2024-10-21 20:32] LABS: Add Urine Microscopic? YES; Appearance Urine Clear (Clear); Bacteria Urine 1+ /hpf; Bilirubin Urine Negative (Negative); Blood Urine Negative (Negative); Color Urine Yellow (Yellow); Glucose Urine UA Negative (Negative); Ketones Urine Negative (Negative); Leukocyte Esterase Ur 1+ LEU/UL (Negative); Need Manual Microscopic Reviewed; Nitrate Urine Negative (Negative); Non Pathogenic Casts 0-2; Protein Urine Negative (Negative); RBC Urine 0-2 /hpf (0-2); Specific Grav Ur 1.021 (1.001-1.035); Squamous Epithelial Cell Urine Few /hpf (Few); WBC Urine 0-5 /hpf (0-3)
--- NOTE | 2024-10-24 23:59 | P.PNOB_ITS ---
OB - Triage/Final Diagnosis Visit Information Reason for evaluation: other ( labor) Comments/Additional reasons for admission: I have assessed the risk for this patient, Debi Addison, and determined that she would benefit from observation care. Evaluation Laboratory results: Laboratory Tests 10/21/24 20:04 Urine Color Yellow Urine Appearance Clear Urine pH 7.0 Ur Specific [place] 1.021 Urine Protein Negative Urine Glucose (UA) Negative Urine Ketones Negative Ur Blood (Man) Negative Urine Nitrate Negative Urine Bilirubin Negative Urine Urobilinogen 1.0 Add Ur Microanalysis Reviewed Leukocyte Esterase Rfl 1+ H Urine RBC 0-2 Urine WBC 0-5 Ur Squamous Epith Cells Few Urine Bacteria 1+ H Urine Casts 0-2
== END 2024-10-21 20:51 | disposition home or self-care (01) ==
PROVIDERS: Obstetrics & Gynecology Gynecology; Admitting Provider Obstetrics & Gynecology; PCP Nurse Practitioner Family; Visit Provider Obstetrics & Gynecology
DX: O60.03 Preterm labor without delivery, third trimester (principal); Z3A.31 31 weeks gestation of pregnancy
CPT/HCPCS: 81001; 87086; G0378; G0379

== ENCOUNTER 2024-12-13 08:54 | Inpatient (IN) | payer OTHER, SELFPAY ==
[2024-12-13] VITALS (40 sets, daily range): BP systolic 87–119; BP diastolic 23–77; PULSE 52–179; RESP 14–17; TEMP 36.2–36.7; O2SAT 77–100; BMI 32.0
--- NOTE | 2024-12-13 08:37 | PM.IMHP ---
H&P: HPI History of Present Illness Date/Time: 12/13/24 08:37 Chief Complaint: Here for C section Narrative: 24 y/o at 39 weeks who had a prior delivery complicated by shoulder dystocia. That baby weighed 7.5 lbs. Current EFW was 5#7oz at 34 weeks, so estimating approximately 8lbs today. We have had a number of conversations regarding mode of delivery, and she is interested in primary to lessen the risk of shoulder dystocia and its possible sequelae. otherwise complicated by anxiety, treated with Wellbutrin. Anatomy survey normal, though an EIF was seen. NIPT low risk. GCT 114. GBS neg. Good movement, rare contractions, no leakage of fluid. Review of Systems Review of Systems: All systems reviewed & are unremarkable except as noted in HPI and below [facility] Past Medical History Medical History (Updated 12/13/24 @ 08:42 by Gaudencio Davis MD) History of shoulder dystocia in prior Anemia Anxiety and depression Surgical History Surgical History No history of previous surgery Family History Family History Father High cholesterol Hypertension Diabetes mellitus Social History Social History Smoking status: Never smoker Alcohol intake: current Alcohol use details: social Substance use: never Do You Feel Safe in your Home?: Yes Lack of Transportation: No Lack of Food: Never True Current Housing: I Have Housing Concerned About Future Housing: No Difficulty Paying Gas/Electric Bills: No Difficulty Paying for Meds: No Currently Unemployed: No Education: Associate Degree Difficulty w/ Childcare or Family Care: No Living arrangements: with family Gender identity (if verbalized by the patient): Female Spiritual care concerns: No Meds Home Medications and Allergies Home Medications ?Medication ?Instructions ?Recorded ?Confirmed ?Type famotidine 20 mg tablet (Acid 20 mg PO DAILY 12/04/24 12/06/24 History Controller) vit no.95-ferrous 1 tablet PO DAILY 12/04/24 12/06/24 History fumarate 28 mg-folic acid 800 mcg tablet () Allergies Allergy/AdvReac Type Severity Reaction Status Date / Time No Known Allergies Allergy Verified 12/06/24 10:20 Exam Const: Orientation/consciousness: patient oriented x3 Other: Well-developed, well-nourished female in no acute distress. Neck: Thyroid: thyroid normal Lymphatic: no lymphadenopathy noted (in neck, axilla or inguinal nodes) Resp: Effort & Inspection: normal respiratory effort Auscultation: clear to auscultation bilaterally Cardio: Rate: regular rate Rhythm: regular rhythm Heart sounds: S1 normal heart sound present and S2 normal heart sound present GI: Other: ABD: Soft, nontender, nondistended, gravid. FHR auscultated. No guarding or rebound tenderness. No hepatosplenomegaly. : General: Yes no CVA tenderness Other: Deferred. Back/Spine/Pelvis: Back: no CVA tenderness Skin: General skin exam: normal color and no rashes or lesions noted Neuro: General: patient oriented x3 Extrem: Other: Extremities: nontender with no edema Psych: Mental Status: mental status grossly normal Affect: normal affect Assessment and Plan Assessment and plan (1) Term : Code(s): Z34.90 - Encounter for supervision of normal , unspecified, unspecified trimester Status: Acute Assessment and Plan: A: IUP at 39 weeks, with history of shoulder dystocia. P: Have reviewed mode of delivery, and she prefers . She understands risks of surgery to include risks of anesthesia, risks of pain, infection, bleeding, blood products, thromboembolic phenomena and damage to adjacent structures such as bowel, bladder, ureters, blood vessels and nerves. She understands all these risks and elects to proceed with primary delivery. (2) History of shoulder dystocia in prior : Code(s): Z87.59 - Personal history of other complications of , childbirth and the puerperium Status: Acute
--- OUTSIDE RECORDS SUMMARY | 2024-12-13 09:06 | XMS_ITS | Clinical Summary ---
Author Organization [facility] Address [address] [facility] [place] [address] Care Team Providers Care Correctional Captain Name Role Phone Gaudencio Davis MD Unavailable [phone] Seth Wolf MD Primary Care Provider [phone] Allergies No known active allergies Medications vitamin ( PLUS) 27-1 MG tablet Take 1 tablet by mouth daily. Active Social History Tobacco Use Types Packs/Day Years [...] 3:40 AM CDT Height 160 cm (5' 3) 08/19/2024 3:40 AM CDT Body Mass Index [...] patient's age to complete this topic Insurance [facility] Care Teams Correctional Captain Relationship Specialty Start Date End Date Seth Wolf MD [address] [place] [address] PCP - General HOSPITALIST 06/13/24 Gaudencio Davis MD [id number] [place] [address] [facility] 06/13/24
--- OUTSIDE RECORDS SUMMARY | 2024-12-13 09:06 | XMS_ITS | Data Portability ---
Author Organization [place] - [facility], Main Office Address [address] [place] [address] Assessment Encounter Date Assessment Date Assessment LastModified [...] ED if any concerns. F/u as directed. Not available 03/30/2023 09:38:53 Plan of Treatment Reminders Order Date Submit Date Provider Last Modified By Organization Details Last Modified Time Details Appointments None recorded. Lab lipid panel, serum 2022 023 [email or web address] [place] [facility], [facility] [address], [place], [address], 3 08:12:53 TSH, serum or plasma 2022 023 [email or web address] [place] [facility], [facility] [address], [place], [address], 3 08:12:53 beta-HCG, quantitativ e, serum or plasma 2022 023 [email or web address] [place] [facility], [place], [address], 3 08:12:53 HbA1c (hemoglobin A1c), blood 2022 023 [email or web address] [place] [facility], [facility], [place], [address], 3 08:12:53 CMP, serum or plasma 2022 023 [facility], [address], [place], [address], 3 08:12:53 CBC w/ auto diff 2022 023 [facility], [address], [address], [place], [address], 3 08:12:52 vitamin B12, serum 2022 023 [facility], [address], [place], [address], 3 08:12:52 iron + TIBC + ferritin, serum 2022 023 [facility], [address], [place], [address], 3 08:12:52 rapid strep group A, throat 2022 023 [facility], [address] [place] [address], [address], 3 10:35:40 rapid flu (A+B) 2022 023 [facility], [address] [facility], [place], [address], 3 10:36:43 Referral None recorded. Procedures None recorded. Surgeries None recorded. Imaging None recorded. Medication Orders Medrol (Arcenio) 4 mg tablets in a dose pack 2023 024 [id number], [address] [facility], [place], [place], [id number], 4 11:59:35 albuterol sulfate HFA 90 mcg/actuati on aerosol inhaler 2023 024 [facility] #[id number], [address] [facility], [place], [place], [id number], 4 11:59:37 azithromyci n 250 mg tablet 2022 023 [email or web address] #[id number], [address] [facility], [place], [place], [id number], 3 17:45:32 Patient TargetsNo targets recorded. Patient Instructions Encounter Date Encounter Id Patient Instructions Last Modified By Organization Details Last Modified Time 05/18/2023 [id number] Fu with new provider prn. 05/18/23 pt aware of [place] departure. Not available 05/18/2023 18:07:44 Reason for Referral None Reported. Results Created Date Observation Date Name Description Value Unit Range Abnormal Flag Note LastModifiedBy Organization Detail LastModifiedTime 12/27/19 22 12/26/2021 MONICA TIN ferritin 8 NG/mL 6.24-1 37 Not Available [facility] (Lab) [address] [place], [address], 12/26/2021 20:09:34 12/27/19 22 12/26/2021 IRON/ TIBC PANEL total iron binding capacity 461 mcg/d L 265-47 5 Not Available [facility] (Lab) [address] [place], [address], 12/26/2021 19:52:48 12/27/19 22 12/26/2021 IRON/ TIBC PANEL % transferrin saturation 23 % 20-[address] [facility] (Lab) [address] [place], [address], 12/26/2021 19:52:48 12/27/19 22 12/26/2021 IRON/ TIBC PANEL unsaturated iron bind capacity 356 mcg/d L 126-38 2 Not Available [facility] (Lab) [address] [place], [address], 12/26/2021 19:52:48 12/27/19 22 12/26/2021 IRON/ TIBC PANEL iron 105 mcg/d L 42-175 Not Available [facility] (Lab) [address] [place], [address], 12/26/2021 19:52:48 12/27/19 22 12/26/2021 CBC W/O DIFFE RENTI AL white blood cells 7.9 x10'3 /uL 4.2-10 .8 Not Available [facility] (Lab) [address] [place], [address], 12/26/2021 19:12:55 12/27/19 22 12/26/2021 CBC W/O DIFFE RENTI AL red blood cells 4.06 x10'6 /uL 3.80-5 .20 Not Available [facility] (Lab) [address] [place], [address], 12/26/2021 19:12:55 12/27/19 22 12/26/2021 CBC W/O DIFFE RENTI AL hemoglobin 12.7 g/dL 12.0-1 5.6 Not Available [facility] (Lab) [address] [place], [address], 12/26/2021 19:12:55 12/27/19 22 12/26/2021 CBC W/O DIFFE RENTI AL hematocrit 38.3 % 35.7-4 5.7 Not Available [facility] (Lab) [address] [place], [address], 12/26/2021 19:12:55 12/27/19 22 12/26/2021 CBC W/O DIFFE RENTI AL mean red cell volume 94.3 fL 82.0-9 9.0 Not Available [facility] (Lab) [address] [place], [address], 12/26/2021 19:12:55 12/27/19 22 12/26/2021 CBC W/O DIFFE RENTI AL mean red cell hemoglobin 31.3 pg 27.0-3 3.0 Not Available [facility] (Lab) [address] [place], [address], 12/26/2021 19:12:55 12/27/19 22 12/26/2021 CBC W/O DIFFE RENTI AL mean RBC HGB concentratio n 33.2 g/dL 31.0-3 6.0 Not Available [facility] (Lab) [address] [place], [address], 12/26/2021 19:12:55 12/27/19 22 12/26/2021 CBC W/O DIFFE RENTI AL red cell distribution width 14.6 % 11.8-1 5.5 Not Available [facility] (Lab) [address] [place], [address], 12/26/2021 19:12:55 12/27/1912/26/2021 CBC W/O DIFFE RENTI AL platelets 278 x10'3 /uL 150-40 0 Not Available [facility] (Lab) [address] [place], [address], 12/26/2021 19:12:55 12/27/19 22 12/26/2021 CBC W/O DIFFE RENTI AL mean platelet volume 10.4 fL 9.0-12 .4 Not Available [facility] (Lab) [address] [place], [address], 12/26/2021 19:12:55 03/30/20 23 03/30/2023 rapid flu (A+B) Flu A negati ve Not Available [facility], [place], [address], 03/30/2023 09:32:06 03/30/20 23 03/30/2023 rapid flu (A+B) Flu B negati ve Not Available [address], [place], [address], 03/30/2023 09:32:06 03/30/20 23 03/30/2023 rapid strep group A, throa t STREP A negati ve Not Available [address], [place], [address], 03/30/2023 09:32:03 10/28/19 22 10/27/2021 US, obste tric No observ ation record ed. [id number], [place], [address], 08/05/2022 05:06:32 10/28/19 22 10/27/2021 XR, chest No observ ation record ed. [id number] [place] [address] [address], [place], [address], 08/05/2022 05:06:32 06/22/19 23 06/21/2022 CT, abdom en + pelvi s, w/ contr ast No observ ation record ed. [id number] [place] [address] [facility] [facility], [place], [address], 08/05/2022 05:06:32 Result Notes None recorded. Problems Name Problem SNOMED Code Status Onset Date Resolution Date Notes Provider Name and Address Organization Details Recorded Time Sore throat 585010924 Active 2022 Seth Wolf MD [address], [address] [address], [place], [address] , [employer] 09:32:01 Pharyngitis 331245025 Active 2022 Seth Wolf MD [address], [address], [place], [address] , [place] [facility] 3 09:45:13 Fatigue 23931803 Active 2022 Seth Wolf MD [address], [address], [place], [address] , [place] [facility] 3 09:50:24 Nausea 744385980 Active 2022 Amber Wray NP [address], [address], [place], [address] , [place] [facility] 3 15:00:28 Dizziness 521905657 Active 2022 Amber Wray NP [address], [address], [place], [address] , [place] [facility] 3 15:00:31 Bronchitis 15802856 Active 2023 NELL Aguirre [address], [address], [place], [address] , [place] [facility] 4 11:52:48 Bronchiectasi s 66224905 Active 2023 NELL Aguirre [address], [address], [place], [address] , [place] [facility] 4 16:06:35 Chronic obstructive pulmonary disease 36416277 Active 2023 NELL Aguirre [address], [address], [place], [address] , [place] [facility] 4 16:06:35 Deep venous thrombosis 151872184 Active 2023 NELL Aguirre [address], [address], [place], [address] , [place] [facility] 4 16:06:35 Edema of lower extremity 853675262 Active 2023 NELL Aguirre [address], [address], [place], [address] , [place] [facility] 4 16:06:35 Dyspnea 924356429 Active 2023 Judy Huerta, SENIOR MOBILE APPLICATION DEVELOPER [address] [facility], [address], [place], [address] , [employer] 4 16:06:35 Acute bronchitis 08625499 Active 2023 NELL Aguirre [address], [address], [place], [address] , [employer] 4 16:07:05 Hyperemesis gravidarum 08645425 Active 2021 Not Available [facility] 3 04:52:35 Tachycardia 6546740 Active 2019 Not Available [facility] 3 04:52:35 Iron deficiency 76110732 Active 2019 Not Available [facility] 3 04:52:35 Vasovagal syncope 592790567 Active 2019 Not Available [facility] 3 04:52:35 Anxiety 41295269 Active 2019 Not Available [facility] 3 04:52:35 Upper respiratory infection 64775260 Active 2019 Not Available [facility] 3 04:52:35 Posterior rhinorrhea 15611880 Active 2019 Not Available [facility] 3 04:52:35 52014477 Active 2021 Not Available [facility] 3 04:52:35 Iron deficiency anemia 63622861 Active 2019 Not Available [facility] 3 04:52:35 Problem Notes None recorded. Procedures Surgical History Date Name Laterality Status Provider Name and Address Organization Details Recorded Time 11/05/2021 Date of Last Pap Smear completed Amber Kelley RN [facility] 05/18/2023 16:33:12 Imaging Results None recorded. Procedure Notes None recorded. Medical Equipment None [...] Available Not Available Vitals Date Recorded Body height Body mass index (BMI) Body weight Body temperature Heart rate Respiratory rate Heart rate Oxygen saturation Oxygen saturation in Arterial blood by Pulse oximetry Systolic And Diastolic Provider Name and Address Organization Details Last Updated DateTime 4 165.1 cm 23.7 kg/m2 97797.1 7 g 96.9 [degF] 122 /min 24 /min 122 /min 97 % 97 % 110/72 mm[Hg] Amber Kelley RN [facility] 4 11:43:20 Date Recorded Body height Provider Name an d Address Organization Details Last Updated DateTime 11/11/2021 160.02 cm Not Available [facility] 3 04:48:36 Date Recorded Body mass index (BMI) Body height Oxygen saturation Oxygen saturation in Arterial blood by Pulse oximetry Heart rate Body temperature Body weight Systolic And Diastolic Provider Name and Address Organization Details Last Updated DateTime 2 24.4 kg/m2 160.02 cm 96 % 96 % 101.99 /min 98.1 [degF] 58843.7 5 g 102/68 mm[Hg] Not Available [facility] 3 04:48:35 Date Recorded Body height Body mass index (BMI) Body weight Body temperature Heart rate Respiratory rate Oxygen saturation Oxygen saturation in Arterial blood by Pulse oximetry Systolic And Diastolic Provider Name and Address Organization Details Last Updated DateTime 3 165.1 cm 23.3 kg/m2 68088.9 3 g 98.1 [degF] 80 /min 16 /min 99 % 99 % 110/74 mm[Hg] Camron Bee [facility] [employer] 3 09:37:36 Date Recorded Body height Body mass index (BMI) Body weight Body temperature Heart rate Oxygen saturation Oxygen saturation in Arterial blood by Pulse oximetry Respiratory rate Systolic And Diastolic Provider Name and Address Organization Details Last Updated DateTime 3 165.1 cm 23.4 kg/m2 88968.0 8 g 96.8 [degF] 91 /min 98 % 98 % 16 /min 114/60 mm[Hg] Amber Kelley RN [place] [facility] 16:29:47 Social History Question Answer Notes LastModified by Organizat ion Details LastModified Time Tobacco Smoking Status Never Smoker Not Available [facility] 08/05/2022 04:41:30 Do You Have An Advance Directive? No Information not available 05/18/2023 What Is Your Level Of Caffeine Consumption? Occasional [id number] Information not available 08/05/2022 How Much Tobacco Do You Chew? None [id number] Information not available 08/05/2022 What Is Your Code Status? Full Code Information not available 05/18/2023 In The 14 Days Before Symptom Onset, Have You Had Close Contact With A Laboratory-confir med COVID-19 While That Case Was Ill? No [id number] Information not available 08/05/2022 In The 14 Days Before Symptom Onset, Have You Had Close Contact With A Person Who Is Under Investigation For COVID-19 While That Person Was Ill? No [id number] Information not available 08/05/2022 What Type Of Diet Are You Following? REGULAR [id number].238474 9088 Information not available 08/05/2022 Which Illicit Or Recreational Drugs Have You Used? None [id number].[id number] Information not available 08/05/2022 How Many Days [...] To Your Family Or Social Situation? No [id number].[id number] 3061 Information not available 08/05/2022 Do You Use Insect Repellent Routinely? Yes MIGRATION.[id number] 9455 Information not available 08/05/2022 Do You Have A Medical Power Of Melter Operator? No Information not available 05/18/2023 How Many Children Do You Have? 1 Information not available 05/18/2023 Have You Ever Been Counseled For Unhealthy Alcohol Use? No [id number].[id number] 4026 Information not available 08/05/2022 Do You Have Any Pets? Yes [id number].809490 0945 Information not available 08/05/2022 What Is Your Relationship Status? Single Engaged Information not available 05/18/2023 Do You Use Your Seat Belt Or Car Seat Routinely? Yes [id number].247541 3943 Information not available 08/05/2022 Are You Sexually Active? Yes Information not available 05/18/2023 Do You Have Smoke And Carbon Monoxide Detectors In Your Home? Yes MIGRATION.293720 7173 Information not available 08/05/2022 Are There Any Smokers In Your House? No MIGRATION.916074 3927 Information not available 08/05/2022 How Much Tobacco Do You Smoke? No MIGRATION.498493 5086 Information not available 08/05/2022 Do You Participate In Social Media? Yes MIGRATION.798483 1259 Information not available 08/05/2022 What Types Of Sporting Activities Do You Participate In? Walk, Jog Information not available 05/18/2023 Do You Use Sunscreen Routinely? Yes MIGRATION.762636 2773 Information not available 08/05/2022 Has Tobacco Cessation Counseling Been Provided? No MIGRATION.091774 5621 Information not available 08/05/2022 Have You Recently Traveled Abroad? No MIGRATION.570088 6022 Information not available 08/05/2022 Do You Have Any Dietary Restrictions? No MIGRATION.219736 7898 Information not available 08/05/2022 Sex: Female Functional Status Question Answer Note LastModified by Organizat ion Details LastModified Time Do you use any illicit or recreational drugs? No MIGRATION.875783 0411 Information not available 08/05/2022 What is your level of alcohol consumption? Occasional MIGRATION.218294 1365 Information not available 08/05/2022 Do you or have you ever used smokeless tobacco? Never used smokeless tobacco MIGRATION.031178 1601 Information not available 08/05/2022 Are you currently employed? 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 Never used electronic cigarettes MIGRATION.831010 1919 Information not available 08/05/2022 What is your exercise level? Moderate MIGRATION.977723 5947 Information not available 08/05/2022 Mental Status Question Answer Note LastModified by Organizat ion Details LastModified Time Do you feel stressed (tense, restless, nervous, or anxious, or unable to sleep at night)? [id number] MIGRATION.[id number] 6 Information not available 08/05/2022 Family History Relationship Description Onset Age of this Age Resolved Age Notes LastModified by Organization Details LastModified Time Mother High glucose level in blood [id number] Not available 08/05/2022 04:43:19 Mother Diabetes mellitus [id number] [id number] Not available 08/05/2022 04:43:19 Mother Hypercholest erolemia MIGRATION.341 [id number] Not available 08/05/2022 04:43:19 Father Hypertensive disorder MIGRATION.428 [id number] Not available 08/05/2022 04:43:19 Father Diabetes mellitus MIGRATION.752 [id number] Not available 08/05/2022 04:43:19 Father Chronic obstructive pulmonary disease MIGRATION.247 [id number] Not available 08/05/2022 04:43:19 Medical History No [...] (COVID-19) vaccine, UNSPECIFIED 1 completed Not Available [facility] 08/05/2022 05:05:48 SARS-COV-2 (COVID-19) vaccine, UNSPECIFIED 1 completed Not Available [facility] 08/05/2022 05:05:49 Influenza, split virus, quadrivalent, PF 0 completed Not Available [facility] 08/05/2022 05:05:49 Tdap 0 completed Not Available [facility] 08/05/2022 05:05:49 Past Encounters Encounter ID Performer Location Encounter Start Date Encounter Closed Date Diagnosis/Indication Diagnosis SNOMED-CT Code Diagnosis ICD10 Code Diagnosis Note [id number] Seth Wolf MD [facility] [place] [address] [place] [address] 09/05/2020 00:00:00 09/05/2020 16:33:11 [id number] Seth Wolf MD [facility] [place] [address] [place] [address] 10/02/2020 00:00:00 10/02/2020 09:49:55 [id number] Seth Wolf MD [facility] [place] [address] [place] [address] 11/28/2020 00:00:00 11/28/2020 11:32:02 [id number] Seth Wolf MD [facility] [place] [address] [place] [address] 12/20/2020 00:00:00 12/20/2020 10:56:58 [id number] Seth Wolf MD [facility] [place] [address] [place] [address] 01/08/2021 00:00:00 01/08/2021 11:12:20 [id number] Seth Wolf MD [facility] [place] [address] [place] [address] 06/24/2021 00:00:00 06/24/2021 10:47:03 [id number] Seth Wolf MD [facility] [place] [address] [place] [address] 10/24/2021 00:00:00 10/24/2021 18:39:38 [id number] Seth Wolf MD [facility] [place] [address] [place] [address] 11/11/2021 00:00:00 11/11/2021 11:52:43 [id number] Amber Wray NP [address] [address] 12/26/2021 00:00:00 12/26/2021 11:14:19 [id number] Seth Wolf MD [address] [address] 03/30/2023 09:29:23 03/30/2023 10:03:30 Sore throat 112362309 J02.9 Pharyngitis 586537359 J0 2.9 Fatigue 28415371 R53.83 [id number] Amber Wray NP [address] [address] 05/18/2023 16:19:08 05/18/2023 18:06:57 Nausea 945831749 R11.0 bland diet. change positions slowly. Dizziness 644010384 R42 stay hydrated with electrolyt e drink. Anemia screening 2671819 07 Z13.0 Diabetes m ellitus screening 637960247 Z13.1 Thyroid di sorder screening 969297183 Z13.29 Hyperlipid emia screening 947275680 Z13.889 [id number] Seth Wolf MD [address] [address] 09/02/2023 11:33:25 09/02/2023 12:15:23 Bronchitis 81200361 J40 Continue humidifier and flonase. If fever persists past Wednesday can consider antibiotic . Health Concerns Section Related Observation LastModified by Organization Detai ls LastModified Time None Recorded Concern Status LastModified by Organization Details LastModified Time None Recorded Advance Directives Directive N: Payers Insurance Date Sequence Insurance Name Policy Number Policy Oseguera Covered Member ID Oseguera Member ID Guarantor Name 07/13/2024 1 [id number] Debi Addison [id number] Debi Addison 07/13/2024 2 [place] [employer] Debi Addison [id number] Debi Addison Notes Date Note Type Note Provider Name and Address Organization Details Recorded Time 03/30/2023 text/html ACV: C/o sore throat, cough, congestion, fatigue for last 1 week. Pt was seen in last weekend and was advised to do otc meds, but she is still not getting any better. Denies any known sick contact. No breast feeding. Seth Wolf MD [address], [address], [place], [address], [place] [facility] 03/30/2023 09:51:21 05/18/2023 text/html Here for eval [...] like it. Interested in changing medication. Amber Wray NP [address], [facility] [address], [place], [address], [employer] 05/18/2023 18:08:27 09/02/2023 text/html Debi Addison is here today for a sick visit. Her symptoms began Wednesday08/28/23. She began with a fever, sore throat, chest congestion, and a productive cough. She has yellow/green sputum. She has taken OTC tylenol, mucinex, and flonase. She has been using vicks and a humidifier. NELL Aguirre [address], [facility] [address], [place], [address], [employer] 09/02/2023 11:59:54 OBGyn Episode No OBEpisode recorded.
--- OUTSIDE RECORDS SUMMARY | 2024-12-13 09:06 | XMS_ITS | Clinical Summary ---
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
--- OUTSIDE RECORDS SUMMARY | 2024-12-13 09:06 | XMS_ITS | Referral Summary ---
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
--- OUTSIDE RECORDS SUMMARY | 2024-12-13 09:07 | XMS_ITS | Clinical Summary ---
Author Organization [facility] Address [address] [place] [address] Care Team Providers Care Pasteurizer Helper Name Role Phone Rona Kirk MD Primary Care Provider [phone] Source Comments [facility] [employer],non-owned Affiliates and Associated Physician Practices is amultiple site organization consisting of ambulatory clinics and hospital sitesin [place], [place], [place] and [place]. This disclosure is being madepursuant to the Care Everywhere program and may not contain all information available regarding this patient. Last updated 18.[facility] [employer] Allergies No known active allergies Medications * Be aware that medications may not be up to date on this document. Alwaysverify current medications with the patient. 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 Gender Identity Not on file Sexual Orientation Not on file Last Filed Vital Signs Vital Sign Reading Time Taken Comments Blood Pressure 118/68 05/18/2016 7:12 PM COVERSTITCH BINDER Pulse 76 05/18/2016 7:12 PM COVERSTITCH BINDER Temperature 36.8 C (98.2 F) 05/18/2016 7:12 PM COVERSTITCH BINDER Respiratory Rate 16 05/18/2016 7:12 PM COVERSTITCH BINDER Oxygen Saturation - - Inhaled Oxygen Concentration - - Weight 49.4 kg (109 lb) 05/18/2016 7:12 PM COVERSTITCH BINDER Height 161.3 cm (5' 3.5) 05/18/2016 7:12 PM COVERSTITCH BINDER Body Mass Index 19.01 05/18/2016 7:12 PM COVERSTITCH BINDER Plan of Treatment Health Maintenance Due Date Last Done Comments HIV SCREENING 2013 HPV VACCINE (1 - 3-dose series) 2013 HEPATITIS C SCREENING 08/29/2016 DTAP/TDAP/TD VACCINES (1 - Tdap) 2017 HEPATITIS B VACCINE (1 of 3 - 19+ 3-dose series) 2017 COVID-19 VACCINE (1 - 2023-2 5 season) 2024 DEPRESSION SCREENING 06/07/2024 INFLUENZA VACCINE (#1) 2025 ZOSTER VACCINE (1 of 2) 2048 [...] patient's age to complete this topic Insurance [facility] MEDICAID - OUT OF [facility] Care Teams Pasteurizer Helper Relationship Specialty Start Date End Date Rona Kirk MD [address] [place] [address] PCP - General Pediatrics 05/18/16
[2024-12-13 09:41] LABS: Hematocrit 28.1 % (37.0-47.0); Hemoglobin 8.5 g/dL (12.0-15.0); Immature Granulocyte Percent A 1.6 % (0-0.5); Lymphocytes Absolute Auto 1.72 K/mm3 (0.9-3.2); Mean Corpuscular HGB Conc 30.2 g/dl (32-36); Mean Corpuscular Hemoglobin 24.6 pg (26-34); Mean Corpuscular Volume 81.4 fl (80-100); Nucleated Red Blood Cells Absolute Auto 0.020 K/mm3 (0.0-0.012); Nucleated Red Blood Cells Perc 0.2 % (0.0-0.2); Platelet Count Result 267 k/mm3 (150-375); Red Blood Count 3.45 M/mm3 (4.2-5.4); White Blood Count 10.4 K/mm3 (4.5-10.0)
[2024-12-13] MEDS: LACTATED RINGERS 1,000 ML 125 ML IV CONT (09:51)
--- NOTE | 2024-12-13 09:54 | LDADM ---
This patient, Debi Addison, was admitted to Labor/Delivery/Recovery 120 on 12/13/24 at 08:54. Plans for labor, pain management and were discussed with patient. Patient/family oriented to hospital policies and general routines including ID bracelet, bed and alarms, visiting hours, pain management, procedures, bathroom and other care routines, personal items, smoking policy, room service/diet and guest tray routines, security routines, and visiting hours. Patient/Family are encouraged to report perceived risks to care and to ask questions if they do not understand what they are told or what they should do. See [employer]BIX for further documentation.
[2024-12-13] MEDS: ACETAMINOPHEN 500 MG TABLET 1000 MG PO ×2 (10:13→19:05)
[2024-12-13 10:20] LABS: Syphilis IgG/IgM Antibody Non-Reactive (Nonreactive)
[2024-12-13 10:33] LABS: HIV 1/2 Ab P24 Ag Result Negative (Negative)
--- NOTE | 2024-12-13 11:31 | WPDANESEPPF ---
Anes - Initial Pre Proc Eval Procedure: Operation Date: 12/13/24 12:00 Proposed Procedures p Repeat Section - Gaudencio Davis MD Date/Time: 12/13/24 11:31 Surgeon: Gaudencio Davis MD Pre Op Diagnosis: C S Patient Data Age: 24 Gender: F Height: 1.6 m Weight: 82 kg Last Vital Signs Temp 36.3 C L 12/13/24 09:30 Pulse 97 12/13/24 09:45 BP 110/77 12/13/24 09:45 O2 Del Method Room Air 12/13/24 09:54 Allergies Allergy/AdvReac Type Severity Reaction Status Date / Time No Known Allergies Allergy Verified 12/13/24 10:02 Home Medications ?Medication ?Instructions ?Recorded ?Confirmed ?Type famotidine 20 mg tablet (Acid 20 mg PO DAILY 12/04/24 12/13/24 History Controller) vit no.95-ferrous 1 tablet PO DAILY 12/04/24 12/13/24 History fumarate 28 mg-folic acid 800 mcg tablet () bupropion HCl 300 mg 24 hr tablet, 300 mg PO DAILY 12/13/24 12/13/24 History extended release (Wellbutrin XL) Laboratory Tests 12/13/24 09:10 WBC 10.4 H K/mm3 (4.5-10.0) RBC 3.45 L M/mm3 (4.2-5.4) Hgb 8.5 L D g/dL (12.0-15.0) Hct 28.1 L % (37.0-47.0) MCV 81.4 fl (80-100) MCH 24.6 L pg (26-34) MCHC 30.2 L g/dl (32-36) RDW 18.2 H % (11.5-14.5) Plt Count 267 k/mm3 (150-375) MPV 10.2 fl (7.4-10.4) Immature Gran % (Auto) 1.6 H % (0-0.5) Neut % (Auto) 74.9 H % (45.5-73.1) Lymph % (Auto) 16.6 L % (18.3-44.2) [place] % (Auto) 6.1 % (2.6-8.5) Eos % (Auto) 0.4 % (0-4.4) Baso % (Auto) 0.4 % (0.2-1.2) Lymph # (Auto) 1.72 K/mm3 (0.9-3.2) [place] # (Auto) 0.6 K/mm3 (0.1-0.6) Eos # (Auto) 0.0 K/mm3 (0-0.3) Baso # (Auto) 0.0 K/mm3 (0.0-0.1) Abs Immat Gran (auto) 0.17 H K/mm3 (0.00-0.031) Absolute Neuts (auto) 7.8 H K/mm3 (1.3-6.7) Absolute Nucleated RBC 0.020 H K/mm3 (0.0-0.012) Nucleated RBC % 0.2 % (0.0-0.2) Syphilis IgG/IgM Ab Non-reactive (Nonreactive) HIV 1&2 Ab/P24 Ag 4thGn Negative (Negative) Blood Type A Negative Antibody Screen Positive Antibody Identification Pending Antigen Identification Pending DHIRAJ, IgG Interpret TNP DHIRAJ, Poly Interpret Negative DHIRAJ, Complement Interp Pending Patient hx anesthesia problems: none Family hx anesthesia problems: none Results Review: All pre-operative results and documents have been reviewed as part of the pre-operative evaluation. [facility] Past Medical History Medical History History of shoulder dystocia in prior Anemia Anxiety and depression Surgical History Surgical History No history of previous surgery Family History Family History Father High cholesterol Hypertension Diabetes mellitus Social History Social History Smoking status: Never smoker Alcohol intake: current Alcohol use details: social Substance use: never Do You Feel Safe in your Home?: Yes Lack of Transportation: No Lack of Food: Never True Current Housing: I Have Housing Concerned About Future Housing: No Difficulty Paying Gas/Electric Bills: No Difficulty Paying for Meds: No Currently Unemployed: No Education: Bachelor's Degree Difficulty w/ Childcare or Family Care: No Living arrangements: with family Gender identity (if verbalized by the patient): Female Spiritual care concerns: No Anes - Eval Final PreProcedure Day of Procedure 12/13/24 11:31 Patient weight: obese Heart: regular rate and rhythm Lungs: clear to auscultation Airway: Mallampati scale class II Neurological: alert and oriented Last oral intake: >/= 8 hours ASA classification: II Emergent: no Anesthetic plan: proceed Anesthesia type and monitoring: regional spinal and standard monitoring Results Review: All pre-operative results and documents have been reviewed as part of the pre-operative evaluation. Informed Consent: The patient's anesthetic plan and its attendant risks and benefits were discussed with the patient/family/POA. Questions were solicited and answers provided to the satisfaction of the patient/family/POA.
[2024-12-13] MEDS: FAMOTIDINE 20 MG/2 ML VIAL IV PUSH (11:33)
[2024-12-13] MEDS: ONDANSETRON INJ 4 MG/2 ML VIAL IV PUSH (11:34)
[2024-12-13] MEDS: ceFAZolin 2 GM/D5W 50 ML 2 GM/50 ML BAG IVPB (11:41)
--- NOTE | 2024-12-13 11:48 | WPDHPUPDATE1 ---
History and Physical Update Update Date/Time: 12/13/24 11:48 History and Physical has been reviewed, including an updated exam of the patient. There are NO changes in the patient's condition. Risks, benefits, and alternatives have been discussed and questions answered. Patient agrees to proceed with procedure.
--- NOTE | 2024-12-13 12:49 | P.PCNOB_ITS ---
OB - Delivery Note Procedure Delivery date: 12/13/24 Pre-op diagnosis: Other (IUP at 39 weeks, prior shoulder dystocia) Post-op Diagnosis: Same Induction method: None Delivery monitor: External FHT and External Uterine Procedure Performed: Primary Surgeon: Gaudencio Davis MD Anesthesia type: Spinal Description of Procedure/Findings: Findings: Normal-appearing uterus, tubes and ovaries Techniques: The patient was taken to the operating room where she was prepared and draped in the usual sterile fashion in dorsal supine position with a leftward tilt. She received cefazolin preoperatively. Spinal anesthesia was found to be adequate. A Pfannenstiel skin incision was made and carried through to the underlying layer of the fascia. The fascia was incised in the midline and the incision was extended laterally. The fascia was dissected free of the underlying rectus muscles. The rectus muscles were in the midline. The peritoneum was identified, tented up and entered sharply. The peritoneal incision was extended superiorly and inferiorly with good visualization of the bladder. The bladder blade was placed. The vesicouterine peritoneum was identified, tented up and entered sharply. The incision was extended laterally and the bladder flap was developed. The bladder blade was replaced. The uterus was then incised sharply in a transverse fashion along the lower uterine segment. The incision was extended laterally. The infant's head was delivered atraumatically to the sterile field, followed by the body. The nose and mouth were bulb suctioned. After a delay, the cord was clamped and cut. The infant was handed off the field. Cord blood was collected. The placenta was removed manually and was passed off the field. The uterus was exteriorized and cleared of all clots and debris. The uterine incision was reapproximated using 0 Mo nocryl in a running, locked fashion. Excellent hemostasis resulted as did excellent reapproximation of the normal anatomy. The uterus was returned the abdomen. The pelvis was irrigated copiously with warmed normal saline. Rigorous hemostasis was assured. The fascial layer was reapproximated using 0 Vicryl in a running fashion. The skin was closed with a running, subcuticular stitch of 4 0 Vicryl. Dermaflex was applied externally. Sponge, lap, needle and instrument counts were correct. The patient was taken to the recovery room in stable condition. The went to the nursery in stable condition. I was present and scrubbed the entire procedure. Specimen: Yes (cord blood) Estimated Blood Loss: 495 Drains: Yes (Ray) Packing: No Pathology: None sent Complications: None Condition: Stable Disposition: PACU Roff Baby Date of : 12/13/24 Time of : 12:17 Gestational Age by Date: 39 Infant gender: Male Weight (pounds): 7 Weight (ounces): 2 presentation: vertex Cord Vessel Description: 3 Vessels and Delayed Cord Clamping score one minute: 7 score five minutes: 8
[2024-12-13] MEDS: KETOROLAC 15 MG/ML VIAL (*BKC) IV PUSH ×2 (13:12→19:05)
[2024-12-13] MEDS: OXYTOCIN 30 UNITS/NS 500 ML 30 UNITS/500 ML BAG 125 UNITS IV CONT (13:12)
[2024-12-13 15:04] LABS: Hematocrit 28.5 % (37.0-47.0); Hemoglobin 8.4 g/dL (12.0-15.0)
--- NOTE | 2024-12-13 15:07 | OBPPTRN ---
Patient transferred to post room #292 via stretcher. Support person present. Oriented to unit, room, information board, rooming in, admission packet and security measures. Patient verbalizes understanding.
[2024-12-13] MEDS: ONDANSETRON INJ 4 MG/2 ML VIAL (15:15)
--- NOTE | 2024-12-13 16:24 | PC.NURSE ---
Introductions were made, then consulted with patient to assess needs related to . Mother led the conversation with her?plans to feed?her infant and the?experience so far. Infant latched optimally to the [right] breast in [football] position. Education given to the mother of how to visualize the suckling, swallows and how to listen for drinking at the breast. Infant was [able] to maintain latch without pain to mother. Mother voiced understanding of encourage if it has been 2 -2.5 hours since the start of the last , to call if infant does not latch, or if there is discomfort with . Reported to the Primary RN.
[2024-12-13] MEDS: METOCLOPRAMIDE HCL INJ 10 MG/2 ML VIAL IV PUSH (16:42)
[2024-12-13] MEDS: DEXTROSE 5%/0.45% SOD CHL 1,000 ML 125 ML IV CONT (17:35)
[2024-12-13] MEDS: LIDOCAINE 5% PATCH 1 PATCH TRANSDERM (17:36)
[2024-12-14] VITALS (11 sets, daily range): BP systolic 113–136; BP diastolic 56–84; PULSE 76–117; RESP 14–18; TEMP 36.6–37.3; O2SAT 98–100
[2024-12-14] MEDS: KETOROLAC 15 MG/ML VIAL (*BKC) IV PUSH ×2 (00:52→07:18)
[2024-12-14] MEDS: ACETAMINOPHEN 500 MG TABLET 1000 MG PO ×4 (00:53→18:38)
[2024-12-14 05:48] LABS: Hematocrit 24.0 % (37.0-47.0); Immature Granulocyte Percent A 0.8 % (0-0.5); Lymphocytes Absolute Auto 2.08 K/mm3 (0.9-3.2); Mean Corpuscular HGB Conc 28.8 g/dl (32-36); Mean Corpuscular Hemoglobin 24.9 pg (26-34); Mean Corpuscular Volume 86.6 fl (80-100); Nucleated Red Blood Cells Absolute Auto 0.000 K/mm3 (0.0-0.012); Nucleated Red Blood Cells Perc 0.0 % (0.0-0.2); Platelet Count Result 229 k/mm3 (150-375); Red Blood Count 2.77 M/mm3 (4.2-5.4); White Blood Count 10.4 K/mm3 (4.5-10.0)
[2024-12-14 06:05] LABS: Hemoglobin 6.9 g/dL (12.0-15.0)
[2024-12-14 06:07] LABS: Anisocytosis 1+; Ovalocytes 1+; Schistocytes None Seen; Tear Drop Cells 1+
[2024-12-14] MEDS: SIMETHICONE 80 MG TAB.CHEW PO ×3 (07:18→16:42)
[2024-12-14] MEDS: buPROPion HCL XL (24 HR) 150 MG TABCR 300 MG PO (09:04)
[2024-12-14] MEDS: MULTIVIT/MIN/PREN/FOL AC/IRON TABLET 1 TAB PO (09:04)
[2024-12-14] MEDS: FAMOTIDINE 20 MG TABLET PO (09:04)
[2024-12-14] MEDS: DOCUSATE SODIUM 100 MG CAPSULE PO ×2 (09:05→16:43)
[2024-12-14] MEDS: IBUPROFEN 600 MG TABLET PO (12:57)
[2024-12-14] MEDS: RHO(D) IMMUNE GLOBULIN 300 MCG/2 ML SYRINGE IM (16:43)
[2024-12-14] MEDS: SODIUM CHLORIDE 0.9% IV 250 ML 30 ML IV CONT (16:45)
[2024-12-14] MEDS: TUBING, BLOOD PLUM PUMP TUBING 1 EACH XX (16:45)
--- NOTE | 2024-12-14 16:53 | PC.NURSE ---
0932 Consulted with patient to assess needs related to . Discussed with mother her successes, concerns and any questions she has. We reviewed working with the infant, supporting breast, protecting her nipples with an optimal deep latch, good positioning, and good hand washing. Mother concerned with history of low milk supply, she brought her own wearable pump from [employer] she purchased but she checked with her insurance and they will cover a pump that she would need to plug in per her words. Mother would like a Medela Pump and YARED Taylor RN will fill out paperwork for the insurance breast pump. Mother will call YARED, RN when she is ready to start pumping. Encouraged understanding the benefits of skin to skin, responding to feeding cues, frequencies of feeding 8-12 times in 24 hours (approximately 2-3 hours), duration of feedings, milk production, intake/output feeding sheet and signs of adequate intake encouraging swallowing at the breast. Reviewed positioning and alignment, supporting breast, off-centered (asymmetrical latch) and leading with the chin with big, open, wide gape. latched optimally to the [right] breast in [football] position. Education given to the mother of how to visualize the suckling (with good rocking jaw motion) swallows (dropping of the lower jaw) and how to listen for drinking at the breast (the ka sound). The infant was [able] to maintain latch without discomfort to mother. Nipple care reviewed with optimal latch, good positioning and using clean hands when touching her breast. Resources used to facilitate learning were used from the [visual handouts/ tool/mom and baby guide]. Mother voiced understanding of the education shared, to call for assistance if the does not latch or if there is discomfort with . Reported to the Primary RN. 1400 A breast pump provided due to mother's request, she has a history of low milk supply and would like to start pumping after baby breast feeds. Instructions given on cleaning, care, usage, that there should be no pain, pumping schedule for milk production, collection, and storage of human milk. Patient was assessed for correct placement, flange size, to pump for comfort and nipple stretching/stimulation for adequate milk production every 3 hours (8 times in 24 hours) 1-2 times at night, she plans on pumping after each . Mother given a Medela Pump and Style insurance breast pump, paperwork completed and faxed to [employer]. Parents are encouraged to record the pumping schedule on the feeding sheet.?Mother voiced understanding of the education shared along with mom/baby guide and the pump measurement, flange fit handout for additional resource information. Reported to the Primary RN.
[2024-12-15] MEDS: IBUPROFEN 600 MG TABLET PO ×4 (01:30→20:59)
[2024-12-15] MEDS: ACETAMINOPHEN 500 MG TABLET 1000 MG PO ×4 (01:30→20:59)
[2024-12-15 01:54] VITALS: BP 118/73; PULSE 91; RESP 14; TEMP 36.9; O2SAT 100
[2024-12-15 07:30] VITALS: BP 117/77; PULSE 106; RESP 16; TEMP 37.1; O2SAT 98
[2024-12-15] MEDS: buPROPion HCL XL (24 HR) 150 MG TABCR 300 MG PO (07:39)
[2024-12-15] MEDS: MULTIVIT/MIN/PREN/FOL AC/IRON TABLET 1 TAB PO (07:41)
[2024-12-15] MEDS: FAMOTIDINE 20 MG TABLET PO (07:41)
[2024-12-15] MEDS: SIMETHICONE 80 MG TAB.CHEW PO ×3 (07:41→16:49)
[2024-12-15] MEDS: DOCUSATE SODIUM 100 MG CAPSULE PO ×2 (07:41→16:49)
--- NOTE | 2024-12-15 10:06 | P.PNOB_ITS ---
OB - PN: Subj Subjective Date/time seen: 12/15/24 10:06 Narrative: Pain OK. Tolerating diet. OB - PN: Obj Data Labs 12/14/24 04:20 Labs: Laboratory Results - last 24 hr 12/14/24 04:20 Blood Type A Negative Antibody Screen TNP Screen Negative Baby's Blood Type A pos Baby's DHIRAJ Positive Doses of RhIg Required 1 Crossmatch See Detail OB - PN A/P Plan Comments: A: POD#2, doing well. P: Routine care. Plan home tomorrow to f/u 4 weeks. Exam 2 Narrative: AVSS I/O OK ABD soft, nontender, fundus firm. Incision c/d/i. EXT nontender
[2024-12-15] MEDS: LIDOCAINE 5% PATCH 1 PATCH TRANSDERM (13:23)
--- NOTE | 2024-12-15 14:15 | PC.NURSE ---
1130. Introductions were made, then consulted with patient to assess needs related to . Discussed with mother her plans to feed her and the experience so far. Mom states that so far it is not going well. She reports she has no milk and has not been able to pump any milk yet. Today is day 2 of life for baby. Education was given on milk production and the transition phases of milk. Mom is currently doing the [id number] plan for feeding her . Mom did have hypertension during and has a history of anxiety and takes Wellbutrin. Moms QBL total was 495. We made a plan for mom to call with her next feeding time to assess a latch and listen for infants swallows. Resources provided for inpatient and outpatient services with the feeding sheet, mom/baby guide and name written on the communication board. Mother voiced understanding of information and will call for her next feeding. Reported to the Primary RN.?
--- NOTE | 2024-12-15 17:13 | PC.NURSE ---
1450.Observed mother latching to the [left & right] breast in [football] position. [was] able to maintain an appropriate latch. Mother [complains of] nipple pain/discomfort [with initial latch on]. Worked with mom on positioning and alignment, and ensuring the infants head was tilted up. Mom needs to work on keeping close to the breast and not letting him slip off. Encouraged mother to keep awake and nursing at the breast for as long as baby desires. Mother taught to listen for infant swallowing during feedings. Reviewed using the blue feeding sheet to record time and duration of feeding. Mother voiced understanding of the education shared, to call for assistance if the infant does not latch or if there is discomfort with . name/number on communication board. Reported to the Primary RN.?
[2024-12-15 19:00] VITALS: BP 122/80; PULSE 98; RESP 16; TEMP 36.7; O2SAT 97
[2024-12-16] MEDS: ACETAMINOPHEN 500 MG TABLET 1000 MG PO ×2 (03:03→08:57)
[2024-12-16] MEDS: IBUPROFEN 600 MG TABLET PO ×2 (03:03→08:57)
--- NOTE | 2024-12-16 07:25 | PC.NURSE ---
Patient called out for questions. Her breasts began feeling very full and firm last night. She was pumping with her Pump in Style that was given by . She was not getting much volume. The night RN pulled a hospital Symphony pump and set mom up to pump with that to see if it would relieve some of her fullness. Patient is concerned that she is not pumping enough volume and that her breasts do not feel soft after pumping. Reviewed with patient that engorgement is normal and will resolve within 24-48 hours. She is educated on the function of the breast and its vasculature and what we can reasonably expect to be pumped at this stage . Mom/Baby Guide opened to the section on engorgement and given to patient to review. Patient has a flat affect and does not verbalize understanding of the information shared. Primary RN updated and education/reinforcement is needed. Patient states that she will call out at the next pumping session so we can try her Pump in Style again before she goes home.
--- NOTE | 2024-12-16 08:18 | PM.OBDSVD ---
DS: Admitting Diagnosis Discharge Date 12/16/24 <Mirna Ching MD - Last Filed: 12/16/24 10:20> Admitting Diagnosis IUP at 39 weeks History of prior delivery with shoulder dystocia <Gaudencio Davis MD - Last Filed: 12/15/24 11:42> DS: Discharge Diagnosis Discharge Diagnosis (1) S/P section: Code(s): Z98.891 - History of uterine scar from previous surgery <Gaudencio Davis MD - Last Filed: 12/15/24 11:42> Status: Acute <Gaudencio Davis MD - Last Filed: 12/15/24 11:42> OB - DS: Summary OB Procedures : None <Gaudencio Davis MD - Last Filed: 12/15/24 11:42> OB Procedures Intrapartum: low cervical, transverse <Gaudencio Davis MD - Last Filed: 12/15/24 11:42> OB Procedures: : None and Transfusion (1 unit PRBC) <Gaudencio Davis MD - Last Filed: 12/15/24 11:42> Peripartum Data Delivery Method: Section <Mirna Ching MD - Last Filed: 12/16/24 10:20> Procedures: Procedures Operation Date: 12/13/24 12:00 <No data on this case meets the specified criteria> <Gaudencio Davis MD - Last Filed: 12/15/24 11:42> [place] 1: Gender: Male <Mirna Ching MD - Last Filed: 12/16/24 10:20> Disposition of : home <Mirna Ching MD - Last Filed: 12/16/24 10:20> Status at Discharge Functional status at discharge: independent ambulation <Mirna Ching MD - Last Filed: 12/16/24 10:20> Overall status at discharge: patient is back to baseline <Mirna Ching MD - Last Filed: 12/16/24 10:20> Time Spent with Patient Time attestation: Total time spent providing and/or coordinating discharge services: <Gaudencio Davis MD - Last Filed: 12/15/24 11:42> Exam Const: General: cooperative, comfortable, no acute distress and obese <Mirna Ching MD - Last Filed: 12/16/24 10:20> Nutritional Appearance: obese <Mirna Ching MD - Last Filed: 12/16/24 10:20> Orientation/consciousness: patient oriented x3 <Mirna Ching MD - Last Filed: 12/16/24 10:20> Resp: Effort & Inspection: normal respiratory effort <Mirna Ching MD - Last Filed: 12/16/24 10:20> Auscultation: clear to auscultation bilaterally <Mirna Ching MD - Last Filed: 12/16/24 10:20> Cardio: Rate: regular rate <Mirna Ching MD - Last Filed: 12/16/24 10:20> GI: Inspection: non-distended <Mirna Ching MD - Last Filed: 12/16/24 10:20> GI Palp: No abdominal tenderness and Yes Soft to palpation <Mirna Ching MD - Last Filed: 12/16/24 10:20> Auscultation: normal bowel sounds <Mirna Ching MD - Last Filed: 12/16/24 10:20> : Other: fundus firm <Mirna Ching MD - Last Filed: 12/16/24 10:20> Skin: General skin exam: normal color <Mirna Ching MD - Last Filed: 12/16/24 10:20> Neuro: General: patient oriented x3 <Mirna Ching MD - Last Filed: 12/16/24 10:20> Extrem: General: normal to inspection <Mirna Ching MD - Last Filed: 12/16/24 10:20> Psych: Appearance: grossly normal <Mirna Ching MD - Last Filed: 12/16/24 10:20> Affect: normal affect <Mirna Ching MD - Last Filed: 12/16/24 10:20> Attitude: cooperative <Mirna Ching MD - Last Filed: 12/16/24 10:20> DS: Data Data Completed and Pending Labs on day of discharge: Labs from last 24 hours 12/13/24 09:10 WBC 10.4 H RBC 3.45 L Hgb 8.5 L D Hct 28.1 L MCV 81.4 MCH 24.6 L MCHC 30.2 L RDW 18.2 H Plt Count 267 MPV 10.2 Immature Gran % (Auto) 1.6 H Neut % (Auto) 74.9 H Lymph % (Auto) 16.6 L [place] % (Auto) 6.1 Eos % (Auto) 0.4 Baso % (Auto) 0.4 Lymph # (Auto) 1.72 [place] # (Auto) 0.6 Eos # (Auto) 0.0 Baso # (Auto) 0.0 Abs Immat Gran (auto) 0.17 H Absolute Neuts (auto) 7.8 H Absolute Nucleated RBC 0.020 H Nucleated RBC % 0.2 Syphilis IgG/IgM Ab Non-reactive HIV 1&2 Ab/P24 Ag 4thGn Negative Blood Type A Negative Antibody Screen Positive Antibody Identification Inconclusive Antigen Identification TNP DHIRAJ, IgG Interpret TNP DHIRAJ, Poly Interpret Negative DHIRAJ, Complement Interp TNP <Gaudencio Davis MD - Last Filed: 12/15/24 11:42> Discharge Plan Discharge Attending physician on discharge: Gaudencio Davis <Gaudencio Davis MD - Last Filed: 12/15/24 11:42> Gaudencio Davis <Mirna Ching MD - Last Filed: 12/16/24 10:20> Discharging Clinician: Gaudencio Davis <Gaudencio Davis MD - Last Filed: 12/15/24 11:42> Gaudencio Davis <Mirna Ching MD - Last Filed: 12/16/24 10:20> Anticipated Discharge Date/Time: 12/16/24 11:00 <Gaudencio Davis MD - Last Filed: 12/15/24 11:42> Patient Disposition: Home <Gaudencio Davis MD - Last Filed: 12/15/24 11:42> Activity: may shower, may drive after 2 weeks and pelvic rest <Gaudencio Davis MD - Last Filed: 12/15/24 11:42> may shower, may drive after 2 weeks and pelvic rest <Mirna Ching MD - Last Filed: 12/16/24 10:20> Diet: regular <Gaudencio Davis MD - Last Filed: 12/15/24 11:42> regular <Mirna Ching MD - Last Filed: 12/16/24 10:20> Wound Care Instructions: incision open to air <Gaudencio Davis MD - Last Filed: 12/15/24 11:42> incision open to air <Mirna Ching MD - Last Filed: 12/16/24 10:20> Discharge Instructions: <Gaudencio Davis MD - Last Filed: 12/15/24 11:42> Patient Language: Pakistani <Gaudencio Davis MD - Last Filed: 12/15/24 11:42> Stand Alone Forms: General Discharge Information <Gaudencio Davis MD - Last Filed: 12/15/24 11:42> Follow-up/Referrals: Gaudencio Davis MD [Physician] - 4 Weeks <Gaudencio Davis MD - Last Filed: 12/15/24 11:42> Discharge Medications: New ibuprofen 600 mg tablet 600 mg PO Q6H PRN (Reason: cramps) Qty: 30 0RF ferrous sulfate 325 mg (65 mg iron) tablet 325 mg PO DAILY Qty: 30 0RF oxycodone-acetaminophen [Percocet] 5-325 mg tablet 1 - 2 tablet PO Q6H PRN (Reason: pain) Qty: 30 0RF Continued PNV no.95-ferrous fumarate-FA [] 28 mg iron- 800 mcg tablet 1 tablet PO DAILY famotidine [Acid Controller] 20 mg tablet 20 mg PO DAILY bupropion HCl [Wellbutrin XL] 300 mg tablet extended release 24 hr 300 mg PO DAILY Patient Comments: Wants to restart taking after delivery. <Gaudencio Davis MD - Last Filed: 12/15/24 11:42> Date of admission: 12/13/24 08:54 <Gaudencio Davis MD - Last Filed: 12/15/24 11:42> Primary Care Provider: UNKNOWN,DOCTOR <Gaudencio Davis MD - Last Filed: 12/15/24 11:42> Admitting Provider: Gaudencio Davis <Gaduencio Davis MD - Last Filed: 12/15/24 11:42> Attending physician on admission: Gaudencio Davis <Gaudencio Davis MD - Last Filed: 12/15/24 11:42> Condition: Stable <Gaudencio Davis MD - Last Filed: 12/15/24 11:42>
[2024-12-16 08:27] VITALS: BP 123/71; PULSE 93; RESP 16; TEMP 36.8; O2SAT 98
[2024-12-16] MEDS: MULTIVIT/MIN/PREN/FOL AC/IRON TABLET 1 TAB PO (08:56)
[2024-12-16] MEDS: FAMOTIDINE 20 MG TABLET PO (08:56)
[2024-12-16] MEDS: SIMETHICONE 80 MG TAB.CHEW PO (08:57)
[2024-12-16] MEDS: DOCUSATE SODIUM 100 MG CAPSULE PO (08:57)
[2024-12-16] MEDS: buPROPion HCL XL (24 HR) 150 MG TABCR 300 MG PO (08:57)
--- NOTE | 2024-12-16 10:10 | PC.NURSE ---
Patient called out for a pumping assessment. Set mom up with her pump in style and reviewed the basic settings and modes. 24mm flange used based on LC measurement yesterday. Patient is educated that she must adjust the amount of suction every time she pumps. She is advised to use the highest comfortable setting. The pump started with 2 minutes of massage and then switched to expression mode. Suction was gradually increased and patient states that she has soreness but no pain. Milk is flowing into the collection bottles and mom is encouraged to stick with her pumping routine and that engorgement generally resolves within 24-48 hours. If she does not feel relief after 48 hours, she can contact the office or her [facility] [facility] for further guidance. Patient still feels that she should be pumping greater volumes at this time. Education provided. RN updated.
[2024-12-18 08:25] VITALS: BP 116/80; PULSE 87; RESP 18; TEMP 36.6; O2SAT 100
== END 2024-12-16 14:44 | disposition home or self-care (01) | DRG 788 ==
LOC: ANHLDR 12:52 → ANHOB2 12-16 08:20 → ANHLDR 12-18 13:28 → ANHOB2 12-18 13:28
PROVIDERS: Admitting Provider Obstetrics & Gynecology; Visit Provider Obstetrics & Gynecology
PROC: 10D00Z1 Extraction of Products of Conception, Low, Open Approach (ICD-10-PCS; CPT 59514; principal; 2024-12-13 12:00)
DX: O99.892 Other specified diseases and conditions complicating childbirth (principal); Z37.0 Single live birth; Z3A.39 39 weeks gestation of pregnancy; Z87.59 Personal history of other complications of pregnancy, childbirth and the puerperium; O99.344 Other mental disorders complicating childbirth; F41.9 Anxiety disorder, unspecified
CPT/HCPCS: 36415; 36430; 85014; 85018; 85025; 85461; 86593; 86703; 86850; 86880; 86900; 86901; 86920; 90384; A9270; G0432; J0690; J1885; J2274; J2405; J2590; J2765; J2790; J7050; J7120; P9016